=== PATIENT | male | born 1955 | race Caucasian/White ===

== ENCOUNTER 2019-05-10 10:05 | Inpatient (IN) | payer BC ==
[~2019-05-10 10:05] MED LIST: Heparin 1,000 UNITS/ML VIAL ONE
--- NOTE | 2019-05-10 10:46 | CT ---
Head CT without contrast 05/10/2019: HISTORY: Syncope, weakness TECHNIQUE: Axial CT imaging at 5 mm intervals from vertex through skull base without contrast FINDINGS: The imaged paranasal sinuses and mastoid air cells demonstrate no acute findings. The patie nt appears status post paranasal sinus surgery. No acute osseous abnormality. No intracranial hemorrhage, midline shift, mass effect, or ventricular enlargement. IMPRESSION: No acute findings.
[2019-05-10] MEDS ORDERED: Acetaminophen 500 MG TAB ONE (10:47)
[2019-05-10 10:50] LABS: Mean Corpuscular HGB CONC 34.9 g/dL (32.0-36.0); Mean Corpuscular Hemoglobin 30.4 pg (27.0-31.0); Mean Corpuscular Volume 87.1 fL (78.0-98.0); Mean Platelet Volume 9.9 fL (7.4-10.4); Platelet Count 173 thou/uL (130-400); RBC Distribution Width 10.8 % (11.5-14.5); Red Blood Cell (RBC) Count 4.27 mill/uL (4.70-6.10); White Blood Cell (WBC) Count 21.7 thou/uL (4.8-10.8)
--- NOTE | 2019-05-10 10:57 | RAD ---
PORTABLE CHEST ONE VIEW: HISTORY: Urinary and stool incontinence. Fever. Weakness. FINDINGS: Heart size is within normal limits. No confluent pneumonia, overt edema, pleural effusion, or other a cute process. IMPRESSION: No significant acute intrathoracic disease. POS: OFF
[2019-05-10] MEDS ORDERED: Piperacillin/Tazobactam 4.5 GM VIAL ONE (11:02)
[2019-05-10 11:08] LABS: Band 15 % (5-11); Lymphocytes 5 % (21-51); MDiff Complete? YES; Monocytes 1 % (0-10); Neutrophil 76 % (42-75); RBC Morphology Normal; Reactive Lymphocytes 3 % (0-10)
[2019-05-10 11:13] LABS: ALT (SGPT) 9 U/L (8-55); AST (SGOT) 12 U/L (5-34); Albumin 4.1 g/dL (3.4-4.8); Alkaline Phosphatase 76 U/L (40-150); Anion Gap 14 mmol/L (10-20); BUN (Urea Nitrogen) 23 mg/dL (8.4-25.7); Bilirubin, Total 2.4 mg/dL (0.2-1.2); CK (CPK) 157 U/L (30-200); Calc. Creatinine Clearance 0 mL/min (70-130); Carbon Dioxide 25 mmol/L (23-31); Chloride 93 mmol/L (98-107); Estimated GFR-MDRD 39; Globulin 2.9 g/dL (2.4-3.5); Glucose 415 mg/dL (80-115); Potassium 4.1 mmol/L (3.5-5.1); Sodium 128 mmol/L (136-145)
[2019-05-10 12:44] LABS: Bilirubin Small (Negative); Blood, Urine Trace (Negative); Glucose, Urine (Dipstick) 500 mg/dL (Negative); Leukocyte Negative (Negative); Nitrite Negative (Negative); Protein, Urine (Dipstick) 30 mg/dL (Neg-Trace); Urobilinogen 0.2 mg/dL (Less than 2)
[2019-05-10 12:45] LABS: Clarity Clear (Clear)
[2019-05-10 12:52] LABS: Bacteria/HPF None Seen HPF (None Seen); RBC/HPF 0-3 HPF (0-3); Squamous Epithelial 0-3 HPF (0-3)
[2019-05-10 14:39] LABS: Lactic Acid 1.3 mmol/L (0.5-2.2)
[2019-05-10] MEDS ORDERED: Sodium Chloride 0.9% 1,000 ML IV SCH (15:45)
[2019-05-10] MEDS ORDERED: Dextrose 5% in Water 1,000 ML IV PRN (16:19)
[2019-05-10] MEDS ORDERED: HYDROcodone/Acetaminophen 5/325 mg Tablet PO PRN (16:19)
[2019-05-10] MEDS ORDERED: Dextrose 50% Abboject 50 ML SYRINGE SLOW IVP PRN (16:19)
[2019-05-10] MEDS ORDERED: hydrALAZINE 20 MG/ML VIAL SLOW IVP PRN (16:19)
[2019-05-10] MEDS ORDERED: Pharmacy to Dose 1 EACH VANCOMYCIN IVPB PRN (16:58)
--- NOTE | 2019-05-10 17:06 | ULT ---
EXAM: Carotid ultrasound HISTORY: Syncope COMPARISON: None TECHNIQUE: Multiplanar grayscale and color Doppler images were obtained in a carotid ultrasound. Spec tral analysis of the Doppler waveforms were performed. FINDINGS: No significant plaque is visualized in either internal carotid artery. No significant plaque is seen in either common carotid artery. The Doppler waveforms are normal in the visualized vessels. Peak systolic velocity in the right internal carotid artery 142 cm/s. Peak systolic velocity in the right common carotid artery 133 cm/s. The right ICA/CCA ratio is 1.1. Peak systolic velocity in the left internal carotid artery 98 cm/s. Peak systolic velocity in the left common carotid artery 141 cm/s. The left ICA/CCA ratio is 0.7. Both vertebral arteries demonstrate antegrade flow without focal stenosis IMPRESSION: Moderate stenosis of 50-69% per velocity criteria in the right internal carotid artery.
[2019-05-10] MEDS: Piperacillin/Tazobactam 3.375 GM in Sodium Chloride 0.9% 100 ML IVPB SCH ×2 (17:12→23:27)
[2019-05-10] MEDS: Sodium Chloride 0.9% 1,000 ML IV SCH (17:12)
[2019-05-10] MEDS: HumaLOG 300 UNITS/3 ML VIAL SC PRN (17:14)
[2019-05-10 17:31] LABS: Lactic Acid 1.7 mmol/L (0.5-2.2)
[2019-05-10] MEDS: Vancomycin HCl 1.5 GM in Sodium Chloride 0.9% 250 ML 300 ML IVPB SCH (19:13)
[2019-05-10] MEDS: Acetaminophen 325 MG TAB PO PRN (19:58)
--- NOTE | 2019-05-10 20:31 | HP ---
PRIMARY CARE PHYSICIAN: The patient does not have a primary care physician. CHIEF COMPLAINT: "I saw flashing light in my left eye, and then I passed out." HISTORY OF PRESENT ILLNESS: Mr. Vigil is a pleasant 64-year-old gentleman, who has a history of diabetes mellitus. He was in his usual state of health until yesterday. He says he was returning from work when he started noticing a flash of light in his left eye. He said it happened several times during the day, but then in the evening, it happened and then he says he "passed out". He says he was on the ground for a while and was very disoriented. He says that he was not able to get up for at least 30 minutes or so because he was extremely weak in his legs. Following after he was able to get up, he did have several episodes of diarrhea. He says he even had some at night in his sleep that he was not aware of. He describes it as a very watery diarrhea. There was no blood. He denies having any abdominal pain, and no vomiting. He also says with regard to the passing out, prior to that, he had not been feeling bad per se. He did not have any headaches. He had a little mild dizziness, but there was no chest pain. No shortness of breath. No weakness in either extremities, either in his upper or lower extremities. He has some numbness and tingling in his fingers, but he says that this is nothing new. He also notes some neuropathy in his legs, but this was not new as well. As a result of this syncopal episode, he came to the emergency room for evaluation. In the ER, he was found to have a blood pressure on the lower side with a systolic of 86. He was also found to have an elevated blood glucose in the 400 range as well as an elevated lactic acid and white blood cell count. He was also noted to be febrile and is being admitted for further recommendations. REVIEW OF SYSTEMS: CONSTITUTIONAL: He did not notice fever at home, but once he was in the emergency room, his temperature was 101.2. He denies any night sweats or weight loss. No change in appetite. HEENT: Primarily per the history of present illness with no rhinorrhea. No neck pain. No adenopathy. PULMONARY: There has been no hemoptysis. No cough. No wheezing. CARDIOVASCULAR: He denies any chest pain. No shortness of breath. No mention of PND. No orthopnea. GASTROINTESTINAL: As the history of present illness. GENITOURINARY: He denies any urinary frequency or hematuria. MUSCULOSKELETAL: He admits to neuropathy in his legs, and he also knows that he did have neuropathy in his lower extremities. No joint pains or effusions. NEUROLOGIC: There has been no focal weakness. No seizures. PSYCHIATRIC: No symptoms of anxiety or depression. SKIN AND INTEGUMENT: On the skin, he noticed an ulcer under the plantar aspect of the right foot, and he denies having any type of injury there that he is aware of. PAST MEDICAL HISTORY: Significant for diabetes mellitus, and he says this was diagnosed about 4 years ago. PAST SURGICAL HISTORY: He has had a meniscal tear repaired and a surgery spot on his back. ALLERGIES: NO KNOWN DRUG ALLERGIES. SOCIAL HISTORY: He is . He is a nonsmoker. He says he drinks a very little, and he works as an attendant in a subdivision greeting people. FAMILY HISTORY: Significant for diabetes in his maternal grandfather as well as heart disease. CURRENT MEDICATIONS: He says he is just taking some occasional herbs. PHYSICAL EXAMINATION: GENERAL: He is alert and oriented. He appears to be in no acute distress. He is well developed and well nourished. VITAL SIGNS: Blood pressure was approximately 104/68, originally 86/52; heart rate 110; respiratory rate of 16; temperature was 101.5. HEENT: Pupils are equal, round, and reactive. Extraocular muscles are intact. His sclerae are anicteric. Throat; there is no erythema. No exudates. He does have poor dentition. Ears; the tympanic membranes are pearly jackson. There was some mild clear fluid behind the drum, but there was no redness. No bulging of the drums. NECK: There was no adenopathy. No bruits. LUNGS: Clear to auscultation. There was no wheezing. No rales. No rhonchi. CARDIOVASCULAR: He has normal S1 and S2. I did not appreciate an S3 or S4. He did have a grade 1/6 very faint systolic murmur. ABDOMEN: Obese. It is soft, nontender, and nondistended. Positive for bowel sounds. Liver span was approximately 7 to 8 cm, and there was no evidence of organomegaly. No rebound or guarding. EXTREMITIES: There was no clubbing or cyanosis. No calf tenderness. No joint effusions noted. NEUROLOGIC: Grossly intact with his muscle strength being 5/5 in both his upper and lower extremities. SKIN AND INTEGUMENT: On the right foot, he has a bullous lesion, which had a red, bruised base right at the base of the third metatarsal. He had an ulcerative lesion, that is oblong on the plantar surface of the foot with some yellowish white exudate. He does have palpable dorsalis pedis pulses bilaterally. He does have 1 to 2+ edema, primarily pedal and ankle edema. He had some mycotic nails with some ingrown toenails as well. LABORATORY AND IMAGING DATA: On his chemistry panel, the sodium was 128, potassium 4.1, chloride is 93, CO2 is 25, BUN of 23, creatinine of 1.7, glucose is 415, lactic acid 2.3, total bilirubin is 2.4. His white blood cell count is 21.7, hemoglobin 13, hematocrit is 37.2, platelet count is 173. He had a CT scan of the brain, which was negative for any acute intracranial process, and also had an EKG, in which the heart rate was 99, and it demonstrated a left bundle-branch block. The patient did mention that he was told he had a left bundle-branch block 4 years ago. ASSESSMENT: 1. This is a pleasant 64-year-old gentleman, who presents to the emergency room after having a syncopal episode followed by diarrhea. He was noted to be initially hypotensive, had a fever, an elevated white count, and elevated lactic acid level. It is unclear what caused the syncope, but I suspect it could be related to volume depletion. Despite the diarrhea coming after the syncopal episode, I suspect there was an enough fluid shift that it may have caused him some hypotension. He is also diabetic and could have silent coronary artery disease; and therefore, this will need to be entertained as well, as well as other causes of syncope such as arrhythmia and cerebral vascular disease. 2. Diarrhea. I suspect this is due to gastroenteritis; however, his white blood cell count is quite elevated. We will try to get stool studies to evaluate for other potential causes such as Clostridium difficile, Campylobacter, Escherichia coli, etc. 3. Diabetes. This does not appear to be very well controlled. The patient states that he is using diet only. We will go ahead and have a environmental educator speak with the patient, and for now, we will just place him on a sliding scale. 4. Diabetic foot infection. We will have Wound Care consult, and antibiotic coverage will likely be sufficient for the foot as well. 5. Hyponatremia. I suspect this is due to his elevated serum glucose and likely should correct with correction of his hyperglycemia. 6. He will also be placed on deep venous thrombosis as well as gastrointestinal prophylaxis. Job ID: [id number]
[2019-05-10] MEDS: Famotidine 20 MG TAB PO SCH (20:56)
[2019-05-10] MEDS ORDERED: Vancomycin HCl 1 GM in Premix Bag 1 BAG IVPB SCH (21:00)
[2019-05-10] MEDS ORDERED: Loperamide HCl 2 MG CAP PO PRN (22:14)
[2019-05-11 05:25] LABS: Anion Gap 16 mmol/L (10-20); BUN (Urea Nitrogen) 20 mg/dL (8.4-25.7); Calc. Creatinine Clearance 76 mL/min (70-130); Carbon Dioxide 18 mmol/L (23-31); Chloride 100 mmol/L (98-107); Estimated GFR-MDRD 56; Glucose 238 mg/dL (80-115); Potassium 3.7 mmol/L (3.5-5.1); Sodium 130 mmol/L (136-145)
[2019-05-11] MEDS: Piperacillin/Tazobactam 3.375 GM in Sodium Chloride 0.9% 100 ML IVPB SCH ×3 (05:48→20:01)
[2019-05-11 06:04] LABS: #Lymphocytes 0.8 thou/uL (1.20-3.40); #Monocytes 1.1 thou/uL (0.11-0.59); #Neutrophils 13.5 thou/uL (1.40-6.50); %Basophils 0.1 % (0.0-1.0); %Eosinophils 0.1 % (0.0-10.0); %Lymphocytes 5.3 % (21.0-51.0); %Monocytes 7.1 % (0.0-10.0); %Neutrophils 87.4 % (42.0-75.0); Hemoglobin 11.5 g/dL (14.0-18.0); Mean Corpuscular HGB CONC 35.3 g/dL (32.0-36.0); Mean Corpuscular Hemoglobin 31.4 pg (27.0-31.0); Mean Platelet Volume 9.2 fL (7.4-10.4); Platelet Count 116 thou/uL (130-400); Platelet Morphology Comment Appears Decreased; RBC Distribution Width 10.6 % (11.5-14.5); Red Blood Cell (RBC) Count 3.66 mill/uL (4.70-6.10); White Blood Cell (WBC) Count 15.4 thou/uL (4.8-10.8)
[2019-05-11] MEDS: HumaLOG 300 UNITS/3 ML VIAL SC PRN ×2 (09:44→11:24)
[2019-05-11] MEDS: Acetaminophen 325 MG TAB PO PRN (09:45)
[2019-05-11] MEDS: Famotidine 20 MG TAB PO SCH ×2 (09:45→21:03)
--- NOTE | 2019-05-11 11:27 | CON ---
DATE OF CONSULTATION: HISTORY OF PRESENT ILLNESS: Sukumar Vigil is a 64-year-old male, retired insurance sales, has diabetes, but he has been managing this holistically on diet. Three to four days ago, he stepped on something in the house, noticed some blood in his shoes and socks. He reports to the emergency room 05/10/2019, admitted to the hospitalist service for complaints of syncope. He had ultrasound of carotids, CT scan of the brain and a chest x-ray. It was not until after admission that he was noted to have a severe infection in his right foot. This has progressed overnight. His is present and seen today. States it has markedly changed since two days ago. He has a gangrenous right second toe with ulceration plantar foot beneath the metatarsophalangeal joint of the second toe extending 6 cm to the dorsum of the foot with blistering skin over the distal foot overlying the second and third toes and metatarsals with discoloration and cellulitis to the ankle. He was noted to have a glucose of 346 on admission. Hemoglobin A1c has not been checked. ALLERGIES: NONE. TOBACCO: None. ALCOHOL: Rarely. MEDICATIONS: None prior to this hospitalization. On hospital, he has been on vancomycin and Zosyn, and insulin. PAST SURGICAL HISTORY: Upper back cyst excised, right knee meniscectomy, right inguinal hernia repair as a child. PAST MEDICAL HISTORY: Diabetes mellitus. The patient reports having a cardiac stress test in [place] as an outpatient that was normal in the last year or two. He has never had a colonoscopy. He does not have a primary care physician. The patient has been experiencing diarrhea in addition and is wearing a diaper. He denies incontinence. REVIEW OF SYSTEMS: Ten-point noncontributory. PHYSICAL EXAMINATION: VITAL SIGNS: 6 feet tall, 207 pounds, 28 BMI, 100.4 degrees, 86, 131/67. HEAD, EYES, EARS, NOSE, AND THROAT: Unremarkable. LUNGS: Clear to auscultation. CARDIAC: Regular rate and rhythm. No murmur or gallop. ABDOMEN: Soft and nontender. No masses. EXTREMITIES: Palpable femoral, popliteal, dorsalis pedis, and posterior tibial pulses. Right foot wound and cellulitis infection as described in HPI. LABORATORY DATA: Sodium 130, potassium 3.7, creatinine 1.3, BUN 20. White count 15, down from 21 yesterday. Hemoglobin 11.5, down from 13 yesterday. Stool C. diff yesterday negative. Blood cultures positive x2 streptococcus. Cultures from his foot not obtained. ASSESSMENT/PLAN: 1. Severe diabetic infection, right foot. We would recommend emergent amputation of right second and probable third toe and others as indicated pending operative findings. He understands he will have an open wound with wound VAC care. He has a life and limb threatening infection in his right foot. We would plan to do this urgently today. 2. Noncompliant diabetic. Check hemoglobin A1c, diabetes education, and control per Medical. 3. Diarrhea, viral gastroenteritis. 4. Never has had a colonoscopy at age 64. Job ID: [id number]
[2019-05-11] MEDS: Enoxaparin Sodium 30 MG/0.3 ML SYRINGE SC SCH (12:59)
[2019-05-11] MEDS: Sodium Chloride 0.9% 1,000 ML IV SCH ×2 (13:00→21:02)
--- NOTE | 2019-05-11 14:15 | PDOC.HOSPP ---
- Subjective Encounter Date: 05/11/19 Encounter Time: 10:00 Subjective: Mr. Vigil was seen today in follow-up of syncope, and sepsis. He does not have any new complaints. It was noted that he the area on his foot is much worse. Diarrhea has resolved. - Objective Vital Signs & Weight: Vital Signs (12 hours) Temp Pulse Resp BP Pulse Ox 05/11/19 07:45 100.4 F H 86 18 131/67 98 05/11/19 04:00 99.7 F H 89 18 122/70 95 Weight Weight 207 lb 4 oz I&O: 05/10/19 05/11/19 05/12/19 06:59 06:59 06:59 Intake Total 2250 Output Total 800 Balance 1450 Result Diagrams: 05/11/19 04:54 05/11/19 04:54 Additional Labs: Accuchecks 05/11/19 05/11/19 05/10/19 10:36 06:06 20:38 POC Glucose 321 H 243 H 218 H 05/10/19 16:53 POC Glucose 346 H Hospitalist ROS - Medication Medications: Active Medications Generic Name Dose Route Start Last Admin Trade Name Freq PRN Reason Stop Dose Admin Acetaminophen 650 mg 05/10/19 16:19 05/11/19 09:45 Tylenol PO 650 mg Q4H PRN Administration Headache/Fever/Mild Pain (1-3) Enoxaparin Sodium 30 mg 05/11/19 09:00 05/11/19 12:59 Lovenox SC Not Given 0900 WAYNE Famotidine 20 mg 05/10/19 21:00 05/11/19 09:45 Pepcid PO 20 mg BID WAYNE Administration Piperacillin Sod/Tazobactam 100 mls @ 200 mls/hr 05/10/19 18:00 05/11/19 11: 29 Sod 3.375 gm/ Sodium Chloride IVPB 100 mls Q6HR WAYNE Administration Sodium Chloride 1,000 mls @ 75 mls/hr 05/10/19 16:19 05/10/19 17:12 Normal Saline 0.9% IV 1,000 mls .[id number] WAYNE Administration Vancomycin HCl 1.5 gm/ Sodium 300 mls @ 200 mls/hr 05/10/19 18:00 05/10/19 19 :13 Chloride IVPB 300 mls 1800 WAYNE Administration Insulin Human Lispro 0 units 05/10/19 16:19 05/11/19 11:24 Humalog SC 8 unit .MODERATE SLIDING SC PRN Administration Moderate Correctional Scale Loperamide HCl 4 mg 05/10/19 22:14 05/10/19 23:47 Imodium PO 05/13/19 22:15 4 mg ONE PRN Administration Diarrhea/Loose Stools Sodium Chloride 10 ml 05/10/19 21:00 05/11/19 10:21 Flush - Normal Saline IVF Not Given Q12HR WAYNE - Exam Eye: PERRL, anicteric sclera ENT: normocephalic atraumatic, no oropharyngeal lesions (other than poor dentition) Heart: RRR, no murmur, no gallops, no rubs, normal peripheral pulses Respiratory: CTAB, no wheezes, no rales, no ronchi, normal chest expansion, no tachypnea, normal percussion Gastrointestinal: soft, non-tender, non-distended, normal bowel sounds, no palpable masses, no hepatomegaly Extremities: 1+ LE edema (+ edema and redness on the dorsum of the right foot, there is now a large bollous lesion there, with sounding erthema, and induration now extending into the ankle) Hosp A/P (1) Syncope Code(s): R55 - SYNCOPE AND COLLAPSE Status: Acute (2) Diabetes mellitus type 2 in nonobese Code(s): E11.9 - TYPE 2 DIABETES MELLITUS WITHOUT COMPLICATIONS Status: Chronic (3) Diabetic peripheral neuropathy Code(s): E11.42 - TYPE 2 DIABETES MELLITUS WITH DIABETIC POLYNEUROPATHY Status : Acute (4) Sepsis Code(s): A41.9 - SEPSIS, UNSPECIFIED ORGANISM Status: Acute (5) Diabetic foot infection Code(s): E11.628 - TYPE 2 DIABETES MELLITUS WITH OTHER SKIN COMPLICATIONS; L08.9 - LOCAL INFECTION OF THE SKIN AND SUBCUTANEOUS TISSUE, UNSP Status: Acute - Plan * Syncope- I suspect this was due to fluid shift with sepsis-however Echo is pending and carotid doppler demonstrated moderate stenosis * Diabetic foot infection- this is progressing rapidly. The patient now remembers that he may have stepped on a screw which went through the bottom of his croc shoe. I am concerned he may have some element of fasciitis- I have called Dr. Sage who has already assessed the patient. There is a strong possibility the foot may need amputation * Will also consult ID- blood cultures are growing Strep * Continue IV Vancomycin and Zosyn * Diarrhea- resolved- and stool studies are negative so far
[2019-05-11] MEDS ORDERED: Sodium Chloride 0.9% 10 ML ONE (15:43)
[2019-05-11] MEDS ORDERED: Propofol 500 MG/50 ML VIAL ONE (17:26)
[2019-05-11] MEDS ORDERED: Fentanyl 100 MCG/2 ML VIAL ONE ×2 (17:26)
[2019-05-11] MEDS ORDERED: Midazolam HCl 2 mg/2 ml Vial ONE (17:26)
[2019-05-11] MEDS ORDERED: Piperacillin/Tazobactam 3.375 GM VIAL ONE (17:43)
[2019-05-11] MEDS ORDERED: Acetaminophen 500 MG TAB PO PRN (18:10)
[2019-05-11] MEDS ORDERED: traMADol HCl 50 MG TAB PO PRN (18:10)
[2019-05-11] MEDS ORDERED: Promethazine HCl 25 MG/ML VIAL IM PRN (18:27)
[2019-05-11] MEDS ORDERED: Promethazine HCl 25 MG/ML VIAL SLOW IVP PRN (18:27)
[2019-05-11] MEDS ORDERED: Morphine Sulfate 2 MG/ML SYRINGE SLOW IVP PRN (18:27)
[2019-05-11] MEDS: Vancomycin HCl 1.5 GM in Sodium Chloride 0.9% 250 ML 300 ML IVPB SCH (18:37)
[2019-05-11] MEDS ORDERED: PROPOFOL 200 MG/20 ML VIAL ONE (18:51)
[2019-05-11] MEDS ORDERED: PHENYLEPHRINE-NS 100 MCG/ML 10 ML SYRINGE ONE (18:51)
[2019-05-11] MEDS ORDERED: Ondansetron PF 4 MG/2 ML Vial ONE (18:51)
[2019-05-11] MEDS: metroNIDAZOLE 500 MG in Premix Bag 1 BAG IVPB SCH (21:02)
[2019-05-11] MEDS: Cefepime 1 GM in Sodium Chloride 0.9% 100 ML IVPB SCH (21:02)
[2019-05-11] MEDS ORDERED: Piperacillin/Tazobactam 4.5 GM in Sodium Chloride 0.9% 100 ML IVPB SCH (23:59)
--- NOTE | 2019-05-12 00:17 | OP ---
DATE OF PROCEDURE: 05/11/2019 PREOPERATIVE DIAGNOSES: Bacteremia, sepsis, diabetic septic foot right after a puncture wound 4 days ago, noncompliant, diabetes, palpable pulses. POSTOPERATIVE DIAGNOSES: Bacteremia, sepsis, diabetic septic foot right after a puncture wound 4 days ago, noncompliant, diabetes, palpable pulses. PROCEDURE: Amputation of toes and metatarsals 2, 3, 4, and 5, right foot with debridement, sharp, resectional, 10 blade skin, soft tissue, muscle, fascia, connective tissue, wound left open for healing by secondary intention. Wound Care Team placed a wound VAC. ANESTHESIA: TIVA. WOUND CULTURE: Submitted to microbiology. DESCRIPTION OF PROCEDURE: The patient was taken to the operating room where under sedation, his right lower extremity was prepared with Betadine and draped in routine fashion. The patient had severe necrotizing infection with the plantar wound extending to the dorsum of his foot around the second and third toes and metatarsals. There was blistering of the dorsum of the foot and ecchymosis of the skin with necrosis and gangrene. An incision was made for amputation of the second and third toes and this extended to the third and fourth. Once underlying infection was appreciated, it involved the tendons and soft tissues of these toes. Metatarsals transected with a bone cutter, resected proximally with rongeurs, connective tissue, infected tissue, necrotic skin excised, resected back to healthy levels. Wound irrigated. Hemostasis obtained with cautery. There was good bleeding. Connective tissue debrided. Wound Care Team arrived to place a wound VAC. The patient tolerated the procedure well. Job ID: [id number]
--- NOTE | 2019-05-12 01:50 | CON ---
DATE OF CONSULTATION: 05/11/2019 REASON FOR CONSULTATION: Bacteremia. HISTORY OF PRESENT ILLNESS: A 64-year-old with a history of type 2 diabetes and neuropathy, who had a syncopal event and developed diarrhea and eventually ended up being brought to the emergency room and he was found to have a temperature of 101.2. There was an ulcer in the plantar aspect of the right foot, and he told me that he had stepped on a screw, which perforated his shoe on the right side and inadvertently he kept using the same shoe and was not aware of the fact that he did have screw still within the shoe, so therefore he kept injuring his right foot over and over again. On arrival, he was hypotensive, tachycardic, so obviously with sepsis. The white cell count was elevated. Bilirubin was elevated as well, probably from the bacteremia. His glucose was 415. White cell count 21.7. Due to the foot abnormalities, Surgery was consulted and the patient was taken to the OR and had amputation, I think of the second through the fifth toes, right foot. I do not see any imaging studies here done, but in the surgeon's exam, there are gangrenous changes in the second toe with ulceration beneath the MPJ, second toe, extending 6 cm to the dorsum of the foot. We do not have a surgical report yet to review. Currently, he is feeling better, though he has this tremor, which is chronic, looks like essential tremor. He denies headaches. No visual symptoms, sore throat, odynophagia, or dysphagia. No dyspnea or chest pain. No abdominal pain or diarrhea. Voiding without difficulty. He has no pain in the feet from neuropathy. PAST MEDICAL HISTORY: Includes type 2 diabetes, neuropathy, and recent perforating injury to the right foot from a screw penetrating through his right shoe. PAST SURGICAL HISTORY: Meniscal tear. ALLERGIES: NONE. SOCIAL HISTORY: , nonsmoker. Works in a subdivision as an attendant. FAMILY HISTORY: Type 2 diabetes. CURRENT MEDICATIONS: 1. IV fluids. 2. Lovenox. 3. Pepcid. 4. Fentanyl. 5. Insulin. 6. Imodium. 7. Zosyn. 8. Vancomycin. PHYSICAL EXAMINATION: VITAL SIGNS: T-max 102.8, currently 100.7; blood pressure 108/56; pulse 90; respirations 18; and O2 saturation 98%. SKIN: With the blanched out swollen second toe blister with bluish discoloration at the base of the second MPJ's dorsal aspect skin site. At the bottom, there is an ulcer, where there is penetration by the screw and one can see the diminished perfusion of the second toe and the other toes appear well perfused. There is a second picture the following day, where there are more overt blistering changes with more ischemic changes in the second toe. LYMPH: No lymphadenopathy. HEENT: Ocular movements conjugate. Oral cavity normal. NECK: Supple. LUNGS: Symmetric. Clear breath sounds. HEART: S1 and S2, regular rate without murmurs. ABDOMEN: Soft, not distended or tender. No ascites. : No bladder distention. MUSCULOSKELETAL: No joint inflammatory activity outside the involved area. Pulses are 2+ in dorsalis pedis. Cap refill is normal. He has this essential tremor, which is chronic. His cognitive function appears to be intact. LABORATORY DATA: White cell count 21,000, now 15.4; hemoglobin 13; and platelets 173 and 116. Chemistry with a creatinine of 1.3. Urinalysis with 4 to 6 wbc's. Microbiology with group B strep from 2 sets of blood cultures. ASSESSMENT: Perforating injury to the right foot in the setting of diabetes mellitus, type 2; neuropathy with aggressive necrotizing infection secondary to group B Streptococcus. Anaerobes may have a role here too as well as Pseudomonas aeruginosa. We will switch the patient to cefepime plus Flagyl. We will discontinue remainder of antimicrobials until final culture results are available. We will wait for the path report and then hopefully transition to oral antimicrobial therapy, probably a combination of Keflex and Flagyl for discharge planning. Job ID: [id number]
[2019-05-12 04:52] LABS: Hemoglobin A1c 10.7 % (4.0-6.0)
[2019-05-12] MEDS: metroNIDAZOLE 500 MG in Premix Bag 1 BAG IVPB SCH ×3 (05:22→21:26)
[2019-05-12] MEDS: Cefepime 1 GM in Sodium Chloride 0.9% 100 ML IVPB SCH ×3 (05:22→21:25)
[2019-05-12] MEDS: Famotidine 20 MG TAB PO SCH ×2 (08:51→21:25)
[2019-05-12] MEDS: Sodium Chloride 0.9% 1,000 ML IV SCH ×2 (08:51→22:19)
[2019-05-12] MEDS: Enoxaparin Sodium 30 MG/0.3 ML SYRINGE SC SCH (08:52)
[2019-05-12 11:42] LABS: #Eosinphils 0.1 thou/uL (0.0-0.7); #Lymphocytes 0.8 thou/uL (1.20-3.40); #Monocytes 0.7 thou/uL (0.11-0.59); #Neutrophils 9.2 thou/uL (1.40-6.50); %Basophils 0.1 % (0.0-1.0); %Eosinophils 0.7 % (0.0-10.0); %Lymphocytes 7.2 % (21.0-51.0); %Monocytes 6.2 % (0.0-10.0); %Neutrophils 85.8 % (42.0-75.0); Hemoglobin 10.2 g/dL (14.0-18.0); Mean Corpuscular HGB CONC 35.1 g/dL (32.0-36.0); Mean Corpuscular Hemoglobin 30.8 pg (27.0-31.0); Mean Corpuscular Volume 87.6 fL (78.0-98.0); Mean Platelet Volume 10.3 fL (7.4-10.4); Platelet Count 150 thou/uL (130-400); RBC Distribution Width 10.6 % (11.5-14.5); Red Blood Cell (RBC) Count 3.33 mill/uL (4.70-6.10); White Blood Cell (WBC) Count 10.7 thou/uL (4.8-10.8)
[2019-05-12 11:55] LABS: Anion Gap 10 mmol/L (10-20); BUN (Urea Nitrogen) 16 mg/dL (8.4-25.7); Calc. Creatinine Clearance 83 mL/min (70-130); Calcium 8.2 mg/dL (7.8-10.44); Carbon Dioxide 23 mmol/L (23-31); Chloride 102 mmol/L (98-107); Estimated GFR-MDRD 58; Glucose 334 mg/dL (80-115); Potassium 3.5 mmol/L (3.5-5.1); Sodium 131 mmol/L (136-145)
[2019-05-12] MEDS: HumaLOG 300 UNITS/3 ML VIAL SC PRN ×2 (13:35→17:45)
--- NOTE | 2019-05-12 13:56 | PRG ---
DATE OF SERVICE: 05/12/2019 SUBJECTIVE: Sukumar Vigil is doing much better today. He feels much better since having his diabetic wet gangrene foot surgically attended to. He is mentally clear. His notices the difference. OBJECTIVE: VITAL SIGNS: Temperature 97.8 degrees, pulse 84, blood pressure 123/63. LABORATORY DATA: White count 10.7, down from 21; hemoglobin 10.2. Basic metabolic profile normal. Glucose is 346 to 334. Hemoglobin A1c 10.7. Wound VAC in foot, unchanged. ASSESSMENT AND PLAN: Bacteremia; diabetic foot infection, status post amputation of toes 2, 3, 4, and 5 and metatarsals with wound VAC applied. Long posterior flap left to facilitate wound healing. Physical therapy has been requested to ambulate him. I have ordered an orthotic shoe, but I do not see that at the bedside and we will reorder that. He should wear this when out of bed. We will view his wound tomorrow. Job ID: [id number]
[2019-05-12] MEDS ORDERED: TETANUS AND DIPHTHERIA TOX/PF 0.5 ML DISP.SYRIN IM ONE (14:00)
--- NOTE | 2019-05-12 14:45 | PDOC.HOSPP ---
- Subjective Encounter Date: 05/12/19 Encounter Time: 11:30 Subjective: Mr. Vigil was seen today in follow-up of diabetic foot infection with sepsis. He says he feels better today. He does not have any new complaints. - Objective Vital Signs & Weight: Vital Signs (12 hours) Temp Pulse Resp BP BP BP Pulse Ox 05/12/19 13:29 134/64 129/67 05/12/19 11:45 97.8 F 84 18 123/63 95 05/12/19 08:15 95 05/12/19 08:13 98.7 F 84 18 126/65 96 05/12/19 04:00 100.1 F H 87 18 132/68 95 Weight Admit Weight 207 lb 4 oz Weight 217 lb 3.2 oz I&O: 05/11/19 05/12/19 05/13/19 06:59 06:59 06:59 Intake Total 2250 2847 Output Total 800 1900 Balance 1450 947 Result Diagrams: 05/12/19 11:12 05/12/19 11:12 Additional Labs: Accuchecks 05/12/19 05/12/19 05/11/19 10:35 05:21 20:15 POC Glucose 346 H 272 H 224 H 05/11/19 16:05 POC Glucose 177 H Hospitalist ROS - Medication Medications: Active Medications Generic Name Dose Route Start Last Admin Trade Name Freq PRN Reason Stop Dose Admin Enoxaparin Sodium 30 mg 05/11/19 09:00 05/12/19 08:52 Lovenox SC 30 mg 0900 WAYNE Administration Famotidine 20 mg 05/10/19 21:00 05/12/19 08:51 Pepcid PO 20 mg BID WAYNE Administration Sodium Chloride 1,000 mls @ 75 mls/hr 05/10/19 16:19 05/12/19 08:51 Normal Saline 0.9% IV 1,000 mls .[id number] WAYNE Administration Cefepime HCl 1 gm/ Sodium 100 mls @ 200 mls/hr 05/11/19 21:00 05/12/19 12:34 Chloride IVPB 100 mls 0500,1300,2100 WAYNE Administration Metronidazole 500 mg/ Device 100 mls @ 100 mls/hr 05/11/19 22:00 05/12/19 13: 38 IVPB 100 mls Q8HR WAYNE Administration Insulin Human Lispro 0 units 05/10/19 16:19 05/12/19 13:35 Humalog SC 8 unit .MODERATE SLIDING SC PRN Administration Moderate Correctional Scale Loperamide HCl 4 mg 05/10/19 22:14 05/10/19 23:47 Imodium PO 05/13/19 22:15 4 mg ONE PRN Administration Diarrhea/Loose Stools Sodium Chloride 10 ml 05/10/19 21:00 05/12/19 08:52 Flush - Normal Saline IVF 10 ml Q12HR WAYNE Administration - Exam Eye: PERRL, anicteric sclera Heart: RRR, no murmur, no gallops, no rubs, normal peripheral pulses Respiratory: CTAB, no wheezes, no rales, no ronchi, normal chest expansion, no tachypnea, normal percussion Gastrointestinal: soft, non-tender, non-distended, normal bowel sounds, no palpable masses, no hepatomegaly, no splenomegaly Extremities: no cyanosis, 1+ LE edema (wound on right foot is dressed, wound photos reviewed.- wound vac is in place) Skin: normal turgor Musculoskeletal: normal tone, normal strength, no muscle wasting Hosp A/P (1) Diabetic foot infection Code(s): E11.628 - TYPE 2 DIABETES MELLITUS WITH OTHER SKIN COMPLICATIONS; L08.9 - LOCAL INFECTION OF THE SKIN AND SUBCUTANEOUS TISSUE, UNSP Status: Acute (2) Sepsis Code(s): A41.9 - SEPSIS, UNSPECIFIED ORGANISM Status: Acute (3) Syncope Code(s): R55 - SYNCOPE AND COLLAPSE Status: Acute (4) Diabetes mellitus type 2 in nonobese Code(s): E11.9 - TYPE 2 DIABETES MELLITUS WITHOUT COMPLICATIONS Status: Chronic (5) Diabetic peripheral neuropathy Code(s): E11.42 - TYPE 2 DIABETES MELLITUS WITH DIABETIC POLYNEUROPATHY Status : Acute - Plan * Diabetic foot infection- he is s/p amputation of the 2nd through 5th toes, at the base of the tarsal. The 1st toe has been spared. A wound vac has been placed. will await cultre results. ID input appreciated, and antibiotics have been adjusted. * Strep Bacteremia-this is covered with the current antibiotics * Will give a tetanus shot due to the puncture nature of the wound * Continue IV Cefepime and Flagyl * DM- will add Metformin, and titrate- continue SSI
[2019-05-12] MEDS: metFORMIN 500 MG TAB PO SCH (17:45)
[2019-05-13] MEDS: metroNIDAZOLE 500 MG in Premix Bag 1 BAG IVPB SCH ×3 (04:55→21:54)
[2019-05-13] MEDS: Cefepime 1 GM in Sodium Chloride 0.9% 100 ML IVPB SCH ×3 (04:55→21:55)
[2019-05-13 05:37] LABS: #Eosinphils 0.2 thou/uL (0.0-0.7); #Lymphocytes 0.8 thou/uL (1.20-3.40); #Monocytes 0.6 thou/uL (0.11-0.59); %Basophils 0.3 % (0.0-1.0); %Eosinophils 2.2 % (0.0-10.0); %Monocytes 8.2 % (0.0-10.0); %Neutrophils 79.3 % (42.0-75.0); Mean Corpuscular HGB CONC 35.2 g/dL (32.0-36.0); Mean Corpuscular Hemoglobin 31.4 pg (27.0-31.0); Mean Corpuscular Volume 89.4 fL (78.0-98.0); Mean Platelet Volume 9.7 fL (7.4-10.4); Platelet Count 167 thou/uL (130-400); RBC Distribution Width 10.8 % (11.5-14.5); Red Blood Cell (RBC) Count 3.19 mill/uL (4.70-6.10); White Blood Cell (WBC) Count 7.5 thou/uL (4.8-10.8)
[2019-05-13 06:00] LABS: Anion Gap 13 mmol/L (10-20); BUN (Urea Nitrogen) 14 mg/dL (8.4-25.7); Calc. Creatinine Clearance 93 mL/min (70-130); Calcium 8.2 mg/dL (7.8-10.44); Carbon Dioxide 22 mmol/L (23-31); Chloride 105 mmol/L (98-107); Estimated GFR-MDRD 66; Glucose 195 mg/dL (80-115); Potassium 3.5 mmol/L (3.5-5.1); Sodium 136 mmol/L (136-145)
[2019-05-13] MEDS: metFORMIN 500 MG TAB PO SCH ×2 (08:49→17:04)
[2019-05-13] MEDS: Enoxaparin Sodium 30 MG/0.3 ML SYRINGE SC SCH (08:49)
[2019-05-13] MEDS: Famotidine 20 MG TAB PO SCH ×2 (08:49→21:54)
--- NOTE | 2019-05-13 10:03 | PQF ---
DATE: 05-13-19 ATTN: DR. NATALIE HOLLOWAY Please exercise your independent, professional judgment in responding to the clarification form. Clinical indicators are provided on the bottom of this form for your review Please check appropriate box(s): [ X ] Acute Renal Failure (ARF) / Acute Kidney Injury (MATY) [ ] Insignificant Lab Values [ ] Other diagnosis [ ] Unable to determine In addition, please specify: Present on Admission (POA): [ X] Yes [ ] No [ ] Unable to determine National Kidney Foundation Guidelines for CKD Staging Stage I Kidney damage with normal or increased GFR GFR > 90 Stage II Kidney damage with mildly decreased GFR GFR 60-89 Stage III Kidney damage with moderately decreased GFR GFR 30-59 Stage IV Kidney damage with severely decreased GFR GFR 16 -29 Stage V Kidney failure GFR<15 ESRD End Stage Renal Disease On dialysis Acute Renal Failure/Acute Kidney Failure defined as: Increases in SCr by (>) 0.3 mg/dl within 48 hours OR- Increases in SCr by (>) 1.5 times baseline, known or presumed to have occurred within the prior 7 days OR- Urine volume < 0.5 ml/kg/hour for 6 hours (KDIGO supplement 2012 for RIFLE/SHAHID criteria) For continuity of documentation, please document condition throughout progress notes and discharge summary. Thank You. CLINICAL INDICATORS - SIGNS / SYMPTOMS / LABS: GFR: 05-10-19: 39 05-11-19: 56 05-12-19: 58 05-13-19: 66 CREATININE: 05-10-19: 1.76 05-11-19: 1.30 05-13-19: 1.12 BUN: 05-10-19: 23 05-11-19: 20 05-13-19: 14 ER DX: 05-10-19: SEPSIS, DIARRHEA, FEVER, HYPERGLYCEMIA, LEUKOCYTOSIS, SYNCOPE RISK FACTORS: H&P 05-10-19: DIARRHEA, DM 2, DOES NOT APPEAR TO BE VERY WELL CONTROLLED , IT IS UNCLEAR WHAT CAUSED THE SYNCOPE, BUT I SUSPECT IT COULD BE RELATED TO VOLUME DEPLETION. TREATMENTS: ER NOTES: 05-10-19: NS IVF (This form is maintained as a part of the permanent medical record) 2014 [email or web address], [email or web address]. All Rights Reserved CELI [email or web address] Office: [phone] [facility]AKES HEALTH SYSTEMGerardo
[2019-05-13] MEDS: HumaLOG 300 UNITS/3 ML VIAL SC PRN ×2 (12:23→22:41)
[2019-05-13] MEDS: Sodium Chloride 0.9% 1,000 ML IV SCH (13:31)
--- NOTE | 2019-05-13 17:48 | PDOC.HOSPP ---
- Subjective Encounter Date: 05/13/19 Encounter Time: 11:15 Subjective: Mr. Vigil was seen today in follow-up of diabetic foot infection. He notes a sudden sharp pain in his foot radiating up his leg. He says the medication they gave him for pain helped. - Objective Vital Signs & Weight: Vital Signs (12 hours) Temp Pulse Pulse Pulse Resp BP BP 05/13/19 12:10 97.8 F 72 18 05/13/19 11:29 78 72 141/77 H 137/68 05/13/19 07:15 97.6 F 70 16 BP Pulse Ox Pulse Ox Pulse Ox 05/13/19 12:10 137/68 94 L 05/13/19 11:29 98 97 05/13/19 07:15 137/72 95 Weight Admit Weight 207 lb 4.8 oz Weight 217 lb 3.2 oz I&O: 05/12/19 05/13/19 05/14/19 06:59 06:59 06:59 Intake Total 2847 3215 Output Total 1900 1400 Balance 947 1815 Result Diagrams: 05/13/19 05:04 05/13/19 05:04 Additional Labs: Accuchecks 05/13/19 05/12/19 11:12 20:26 POC Glucose 223 H 192 H Hospitalist ROS - Medication Medications: Active Medications Generic Name Dose Route Start Last Admin Trade Name Freq PRN Reason Stop Dose Admin Hydrocodone Bitart/Acetaminophen 1 tab 05/10/19 16:19 05/13/19 03:22 [place] 5/325 PO 1 tab Q4H PRN Administration Moderate Pain (4-6) Enoxaparin Sodium 30 mg 05/11/19 09:00 05/13/19 08:49 Lovenox SC 30 mg 0900 WAYNE Administration Famotidine 20 mg 05/10/19 21:00 05/13/19 08:49 Pepcid PO 20 mg BID WAYNE Administration Sodium Chloride 1,000 mls @ 75 mls/hr 05/10/19 16:19 05/13/19 13:31 Normal Saline 0.9% IV 1,000 mls .[id number] WAYNE Administration Cefepime HCl 1 gm/ Sodium 100 mls @ 200 mls/hr 05/11/19 21:00 05/13/19 13:29 Chloride IVPB 100 mls 0500,1300,2100 WAYNE Administration Metronidazole 500 mg/ Device 100 mls @ 100 mls/hr 05/11/19 22:00 05/13/19 13: 30 IVPB 100 mls Q8HR WAYNE Administration Insulin Human Lispro 0 units 05/10/19 16:19 05/13/19 12:23 Humalog SC 4 unit .MODERATE SLIDING SC PRN Administration Moderate Correctional Scale Loperamide HCl 4 mg 05/10/19 22:14 05/10/19 23:47 Imodium PO 05/13/19 22:15 4 mg ONE PRN Administration Diarrhea/Loose Stools Metformin HCl 500 mg 05/12/19 17:00 05/13/19 17:04 Glucophage PO 500 mg BID-WM WAYNE Administration Sodium Chloride 10 ml 05/10/19 21:00 05/13/19 08:49 Flush - Normal Saline IVF 10 ml Q12HR WAYNE Administration - Exam Eye: PERRL Heart: RRR, no murmur, no gallops, no rubs, normal peripheral pulses Respiratory: CTAB, no wheezes, no rales, no ronchi, normal chest expansion, no tachypnea, normal percussion Gastrointestinal: soft, non-tender, non-distended, normal bowel sounds, no palpable masses, no hepatomegaly, no splenomegaly Extremities: no cyanosis, 1+ LE edema (+ swelling of the right foot, wound vac is in place, and mild erythema,) Hosp A/P (1) Diabetic foot infection Code(s): E11.628 - TYPE 2 DIABETES MELLITUS WITH OTHER SKIN COMPLICATIONS; L08.9 - LOCAL INFECTION OF THE SKIN AND SUBCUTANEOUS TISSUE, UNSP Status: Acute (2) Sepsis Code(s): A41.9 - SEPSIS, UNSPECIFIED ORGANISM Status: Acute (3) Syncope Code(s): R55 - SYNCOPE AND COLLAPSE Status: Acute (4) Diabetes mellitus type 2 in nonobese Code(s): E11.9 - TYPE 2 DIABETES MELLITUS WITHOUT COMPLICATIONS Status: Chronic (5) Diabetic peripheral neuropathy Code(s): E11.42 - TYPE 2 DIABETES MELLITUS WITH DIABETIC POLYNEUROPATHY Status : Acute - Plan * Diabetic foot infection- continue local wound care, and Cefepime and Flagyl IV * Will add a low dose gabapentin in the evening for phantom pain * Strep Bacteremia-this is covered with the current antibiotics * DM- blood glucose is a bit better- continue Metformin and SSI
[2019-05-13] MEDS ORDERED: Loperamide HCl 2 MG CAP PO PRN (19:38)
--- NOTE | 2019-05-13 21:37 | PRG ---
DATE OF SERVICE: 05/13/2019 SUBJECTIVE: Mr. Vigil is doing well today. He remains afebrile. Cultures reveal E coli, gram-negative yennifer, Staphylococcus aureus, Streptococcus. The patient's wound VAC was removed from his right foot. Two days ago, he had amputation of the toes, 2, 3, 4 and 5, the metatarsals. There was necrotic tissue debrided sharply. There was arterial bleeder closed with 4-0 nylon suture, which was all that was . The patient's post plantar skin flap looks healthy. Wound Care Team placed a wound VAC. At this point, the patient is doing well. We would continue intravenous antibiotics. These are determined by Dr. Ramirez and follow up cultures. Overall, his wound looks good. Outpatient wound care be arranged. He can have outpatient oral antibiotics once sensitivities have returned from his cultures. He did have 2/2 positive blood cultures for Streptococcus. Antibiotic treatment per Dr. Ramirez. I will see him in my office in 2 to 3 weeks outpatient wound care. [facility] Wound VAC care has been ordered by telehealth case manager. I will see him as needed this week and call if necessary. Job ID: [id number]
[2019-05-14] MEDS: Loperamide HCl 2 MG CAP PO PRN ×2 (00:46→06:05)
[2019-05-14 05:48] LABS: #Eosinphils 0.3 thou/uL (0.0-0.7); #Lymphocytes 0.8 thou/uL (1.20-3.40); #Monocytes 0.7 thou/uL (0.11-0.59); #Neutrophils 5.1 thou/uL (1.40-6.50); %Basophils 0.3 % (0.0-1.0); %Eosinophils 3.8 % (0.0-10.0); %Lymphocytes 11.5 % (21.0-51.0); %Monocytes 10.3 % (0.0-10.0); %Neutrophils 74.2 % (42.0-75.0); Hemoglobin 9.8 g/dL (14.0-18.0); Mean Corpuscular HGB CONC 34.8 g/dL (32.0-36.0); Mean Corpuscular Hemoglobin 31.2 pg (27.0-31.0); Mean Corpuscular Volume 89.5 fL (78.0-98.0); Mean Platelet Volume 9.6 fL (7.4-10.4); Platelet Count 191 thou/uL (130-400); RBC Distribution Width 10.8 % (11.5-14.5); Red Blood Cell (RBC) Count 3.15 mill/uL (4.70-6.10); White Blood Cell (WBC) Count 6.9 thou/uL (4.8-10.8)
[2019-05-14] MEDS: metroNIDAZOLE 500 MG in Premix Bag 1 BAG IVPB SCH ×3 (06:05→22:38)
[2019-05-14] MEDS: Sodium Chloride 0.9% 1,000 ML IV SCH ×2 (06:05→16:27)
[2019-05-14] MEDS: Cefepime 1 GM in Sodium Chloride 0.9% 100 ML IVPB SCH ×3 (06:05→20:40)
[2019-05-14 06:18] LABS: Anion Gap 10 mmol/L (10-20); BUN (Urea Nitrogen) 12 mg/dL (8.4-25.7); Calc. Creatinine Clearance 108 mL/min (70-130); Calcium 8.2 mg/dL (7.8-10.44); Carbon Dioxide 24 mmol/L (23-31); Chloride 106 mmol/L (98-107); Estimated GFR-MDRD 79; Glucose 222 mg/dL (80-115); Potassium 3.4 mmol/L (3.5-5.1); Sodium 137 mmol/L (136-145)
[2019-05-14] MEDS: Famotidine 20 MG TAB PO SCH ×2 (08:55→20:41)
[2019-05-14] MEDS: metFORMIN 500 MG TAB PO SCH ×2 (08:55→16:51)
[2019-05-14] MEDS: Enoxaparin Sodium 30 MG/0.3 ML SYRINGE SC SCH (08:55)
[2019-05-14] MEDS ORDERED: Glimepiride 1 MG TAB PO SCH ×2 (09:00→09:15)
[2019-05-14] MEDS ORDERED: Ondansetron PF 4 MG/2 ML Vial IVP PRN (12:29)
--- NOTE | 2019-05-14 17:24 | PDOC.HOSPP ---
- Subjective Encounter Date: 05/14/19 Encounter Time: 11:30 Subjective: Mr. Vigil was seen today in follow-up of diabetic foot infection. He did not have pain in his foot last night, but did have diarrhea once again. - Objective Vital Signs & Weight: Vital Signs (12 hours) Temp Pulse Pulse Pulse Resp BP BP 05/14/19 11:50 81 73 143/76 H 163/82 H 05/14/19 11:31 98.7 F 69 16 05/14/19 08:30 05/14/19 08:20 100.2 F H 80 16 BP BP Pulse Ox Pulse Ox Pulse Ox 05/14/19 11:50 99 97 05/14/19 11:31 138/90 95 05/14/19 08:30 99 05/14/19 08:20 129/68 97 Weight Admit Weight 207 lb 4.8 oz Weight 217 lb 3.2 oz I&O: 05/13/19 05/14/19 05/15/19 06:59 06:59 06:59 Intake Total 3215 3750 Output Total 1400 1640 Balance 1815 2110 Result Diagrams: 05/14/19 04:46 05/14/19 04:46 Additional Labs: Accuchecks 05/14/19 05/14/19 05/13/19 10:37 05:30 20:12 POC Glucose 215 H 217 H 250 H 05/13/19 05:27 POC Glucose 204 H Hospitalist ROS - Medication Medications: Active Medications Generic Name Dose Route Start Last Admin Trade Name Freq PRN Reason Stop Dose Admin Hydrocodone Bitart/Acetaminophen 1 tab 05/10/19 16:19 05/13/19 03:22 [place] 5/325 PO 1 tab Q4H PRN Administration Moderate Pain (4-6) Enoxaparin Sodium 30 mg 05/11/19 09:00 05/14/19 08:55 Lovenox SC 30 mg 0900 WAYNE Administration Famotidine 20 mg 05/10/19 21:00 05/14/19 08:55 Pepcid PO 20 mg BID WAYNE Administration Sodium Chloride 1,000 mls @ 75 mls/hr 05/10/19 16:19 05/14/19 16:27 Normal Saline 0.9% IV Not Given .[id number] WAYNE Cefepime HCl 1 gm/ Sodium 100 mls @ 200 mls/hr 05/11/19 21:00 05/14/19 12:25 Chloride IVPB 100 mls 0500,1300,2100 WAYNE Administration Metronidazole 500 mg/ Device 100 mls @ 100 mls/hr 05/11/19 22:00 05/14/19 14: 32 IVPB 100 mls Q8HR WAYNE Administration Insulin Human Lispro 0 units 05/10/19 16:19 05/13/19 12:23 Humalog SC 4 unit .MODERATE SLIDING SC PRN Administration Moderate Correctional Scale Insulin Human Lispro 0 units 05/10/19 16:19 05/13/19 22:41 Humalog SC 2 unit .BEDTIME SLIDING SC PRN Administration Bedtime Correctional Scale Loperamide HCl 2 mg 05/10/19 22:14 05/14/19 06:05 Imodium PO 2 mg PRN PRN Administration Diarrhea/Loose Stools Loperamide HCl 4 mg 05/13/19 19:38 05/13/19 19:48 Imodium PO 05/15/19 19:39 4 mg ONE PRN Administration Diarrhea/Loose Stools Metformin HCl 1,000 mg 05/14/19 17:00 05/14/19 16:51 Glucophage PO 1,000 mg BID-WM WAYNE Administration Sodium Chloride 10 ml 05/10/19 21:00 05/14/19 09:47 Flush - Normal Saline IVF Not Given Q12HR WAYNE - Exam Eye: PERRL, anicteric sclera ENT: normocephalic atraumatic, no oropharyngeal lesions (poor dentition) Heart: RRR, no gallops, no rubs, normal peripheral pulses, murmur present, II/IV Respiratory: CTAB, no wheezes, no rales, no ronchi, normal chest expansion, no tachypnea, normal percussion Gastrointestinal: soft, non-tender, non-distended, normal bowel sounds, no palpable masses, no hepatomegaly, no splenomegaly Extremities: 1+ LE edema (mild erythema of the right foot, wound vac is in place ) Skin: normal turgor Hosp A/P (1) Diabetic foot infection Code(s): E11.628 - TYPE 2 DIABETES MELLITUS WITH OTHER SKIN COMPLICATIONS; L08.9 - LOCAL INFECTION OF THE SKIN AND SUBCUTANEOUS TISSUE, UNSP Status: Acute (2) Sepsis Code(s): A41.9 - SEPSIS, UNSPECIFIED ORGANISM Status: Acute (3) Syncope Code(s): R55 - SYNCOPE AND COLLAPSE Status: Acute (4) Diabetes mellitus type 2 in nonobese Code(s): E11.9 - TYPE 2 DIABETES MELLITUS WITHOUT COMPLICATIONS Status: Chronic (5) Diabetic peripheral neuropathy Code(s): E11.42 - TYPE 2 DIABETES MELLITUS WITH DIABETIC POLYNEUROPATHY Status : Acute - Plan * Diabetic foot infection- continue local wound care, and Cefepime and Flagyl IV * Will need to await arrangements for Out patient wound care and outpatient wound vac needed? * Will need to determine the best antibiotic regimen for home * Strep Bacteremia-this is covered with the current antibiotics * DM- blood glucose is a bit better- continue Metformin and SSI * Hopefully home Thursday
[2019-05-14] MEDS: Gabapentin 100 MG CAP PO SCH (20:41)
[2019-05-14] MEDS: HumaLOG 300 UNITS/3 ML VIAL SC PRN (21:09)
[2019-05-15 05:44] LABS: #Eosinphils 0.3 thou/uL (0.0-0.7); #Lymphocytes 0.8 thou/uL (1.20-3.40); #Monocytes 0.8 thou/uL (0.11-0.59); #Neutrophils 4.6 thou/uL (1.40-6.50); %Basophils 0.3 % (0.0-1.0); %Lymphocytes 12.3 % (21.0-51.0); %Monocytes 11.8 % (0.0-10.0); %Neutrophils 71.7 % (42.0-75.0); Hemoglobin 9.8 g/dL (14.0-18.0); Mean Corpuscular HGB CONC 35.2 g/dL (32.0-36.0); Mean Corpuscular Hemoglobin 31.7 pg (27.0-31.0); Mean Platelet Volume 9.1 fL (7.4-10.4); Platelet Count 218 thou/uL (130-400); RBC Distribution Width 10.9 % (11.5-14.5); Red Blood Cell (RBC) Count 3.09 mill/uL (4.70-6.10); White Blood Cell (WBC) Count 6.4 thou/uL (4.8-10.8)
[2019-05-15 05:51] LABS: Anion Gap 11 mmol/L (10-20); BUN (Urea Nitrogen) 8 mg/dL (8.4-25.7); Calc. Creatinine Clearance 121 mL/min (70-130); Calcium 8.1 mg/dL (7.8-10.44); Carbon Dioxide 22 mmol/L (23-31); Chloride 106 mmol/L (98-107); Estimated GFR-MDRD 90; Glucose 202 mg/dL (80-115); Potassium 3.5 mmol/L (3.5-5.1); Sodium 135 mmol/L (136-145)
[2019-05-15] MEDS: Cefepime 1 GM in Sodium Chloride 0.9% 100 ML IVPB SCH ×3 (06:39→21:17)
[2019-05-15] MEDS: HumaLOG 300 UNITS/3 ML VIAL SC PRN (06:39)
[2019-05-15] MEDS: Sodium Chloride 0.9% 1,000 ML IV SCH ×2 (06:43→21:17)
[2019-05-15] MEDS: Enoxaparin Sodium 30 MG/0.3 ML SYRINGE SC SCH (07:51)
[2019-05-15] MEDS: Saccharomyces boulardii 250 MG CAP PO SCH (07:51)
[2019-05-15] MEDS: metFORMIN 500 MG TAB PO SCH ×2 (07:51→16:37)
[2019-05-15] MEDS: Glimepiride 1 MG TAB PO SCH (07:52)
[2019-05-15] MEDS: Famotidine 20 MG TAB PO SCH ×2 (07:52→21:13)
[2019-05-15] MEDS: metroNIDAZOLE 500 MG in Premix Bag 1 BAG IVPB SCH ×3 (07:59→21:23)
[2019-05-15] MEDS ORDERED: guaiFENesin/Dextromethorphan 10 ML UDCUP PO PRN (10:03)
[2019-05-15] MEDS ORDERED: Guaifenesin DM 100-10/5 ML UDCUP PO PRN (11:15)
--- NOTE | 2019-05-15 12:05 | PDOC.HOSPP ---
- Subjective Encounter Date: 05/15/19 Encounter Time: 12:04 Subjective: Doing well overall. No pain in the foot. He does report a dry cough. He says the BM's are less frequent, still a little loose. Not uncommon for him. He reports he was following his blood sugars at home and they were good. He was on Metformin at some point in the past, but most recently he was using Nepali herbs. He is good with going back on the metformin. - Objective Vital Signs & Weight: Vital Signs (12 hours) Temp Pulse Resp BP BP Pulse Ox 05/15/19 11:16 98.7 F 75 16 135/70 95 05/15/19 07:46 99.6 F 73 16 147/73 H 96 05/15/19 04:00 98.2 F 78 16 126/71 98 Weight Admit Weight 207 lb 4.8 oz Weight 217 lb 3.2 oz I&O: 05/14/19 05/15/19 05/16/19 06:59 06:59 06:59 Intake Total 3750 580 Output Total 1640 625 Balance 2110 -45 Result Diagrams: 05/15/19 05:20 05/15/19 05:20 Additional Labs: Accuchecks 05/15/19 05/15/19 05/14/19 11:01 06:40 19:53 POC Glucose 157 H 200 H 219 H 05/14/19 17:40 POC Glucose 226 H Hospitalist ROS - Medication Medications: Active Medications Generic Name Dose Route Start Last Admin Trade Name Freq PRN Reason Stop Dose Admin Hydrocodone Bitart/Acetaminophen 1 tab 05/10/19 16:19 05/13/19 03:22 [place] 5/325 PO 1 tab Q4H PRN Administration Moderate Pain (4-6) Enoxaparin Sodium 30 mg 05/11/19 09:00 05/15/19 07:51 Lovenox SC 30 mg 0900 WAYNE Administration Famotidine 20 mg 05/10/19 21:00 05/15/19 07:52 Pepcid PO 20 mg BID WAYNE Administration Gabapentin 100 mg 05/14/19 21:00 05/14/19 20:41 Neurontin PO 100 mg HS WAYNE Administration Glimepiride 1 mg 05/15/19 08:00 05/15/19 07:52 Amaryl PO 1 mg QAM-WM WAYNE Administration Sodium Chloride 1,000 mls @ 75 mls/hr 05/10/19 16:19 05/15/19 06:43 Normal Saline 0.9% IV 1,000 mls .[id number] WAYNE Administration Cefepime HCl 1 gm/ Sodium 100 mls @ 200 mls/hr 05/11/19 21:00 05/15/19 06:39 Chloride IVPB 100 mls 0500,1300,2100 WAYNE Administration Metronidazole 500 mg/ Device 100 mls @ 100 mls/hr 05/11/19 22:00 05/15/19 07: 59 IVPB 100 mls Q8HR WAYNE Administration Insulin Human Lispro 0 units 05/10/19 16:19 05/15/19 06:39 Humalog SC 2 unit .MODERATE SLIDING SC PRN Administration Moderate Correctional Scale Insulin Human Lispro 0 units 05/10/19 16:19 05/14/19 21:09 Humalog SC 2 unit .BEDTIME SLIDING SC PRN Administration Bedtime Correctional Scale Loperamide HCl 2 mg 05/10/19 22:14 05/14/19 06:05 Imodium PO 2 mg PRN PRN Administration Diarrhea/Loose Stools Loperamide HCl 4 mg 05/13/19 19:38 05/13/19 19:48 Imodium PO 05/15/19 19:39 4 mg ONE PRN Administration Diarrhea/Loose Stools Metformin HCl 1,000 mg 05/14/19 17:00 05/15/19 07:51 Glucophage PO 1,000 mg BID-WM AWYNE Administration Saccharomyces Boulardii 250 mg 05/15/19 09:00 05/15/19 07:51 Florastor PO 250 mg DAILY WAYNE Administration Sodium Chloride 10 ml 05/10/19 21:00 05/15/19 09:40 Flush - Normal Saline IVF Not Given Q12HR WAYNE - Exam General Appearance: NAD, awake alert Neck: supple, symmetric, no JVD, no thyromegaly, no lymphadenopathy, no carotid bruit Heart: RRR, no murmur, no gallops, no rubs, normal peripheral pulses Respiratory: CTAB, no wheezes, no rales, no ronchi, normal chest expansion, no tachypnea, normal percussion Gastrointestinal: soft, non-tender, non-distended, normal bowel sounds, no palpable masses, no hepatomegaly, no splenomegaly, no bruit Extremities: 1+ LE edema Extremities - other findings: Right foot with post op boot, dressing and wound vac. Neurological: cranial nerve grossly intact, normal sensation to touch, no weakness, no focal deficits, no new deficit Musculoskeletal: normal tone Psychiatric: normal affect, normal behavior, A&O x 3 Hosp A/P (1) Streptococcal bacteremia Code(s): R78.81 - BACTEREMIA; B95.5 - UNSP STREPTOCOCCUS THE CAUSE OF DISEASES CLASSD [id number] Status: Acute (2) Diabetic foot infection Code(s): E11.628 - TYPE 2 DIABETES MELLITUS WITH OTHER SKIN COMPLICATIONS; L08.9 - LOCAL INFECTION OF THE SKIN AND SUBCUTANEOUS TISSUE, UNSP Status: Acute (3) Diabetic peripheral neuropathy Code(s): E11.42 - TYPE 2 DIABETES MELLITUS WITH DIABETIC POLYNEUROPATHY Status : Acute (4) Sepsis Code(s): A41.9 - SEPSIS, UNSPECIFIED ORGANISM Status: Acute (5) Syncope Code(s): R55 - SYNCOPE AND COLLAPSE Status: Acute (6) Diabetes mellitus type 2 in nonobese Code(s): E11.9 - TYPE 2 DIABETES MELLITUS WITHOUT COMPLICATIONS Status: Chronic (7) Diarrhea Code(s): R19.7 - DIARRHEA, UNSPECIFIED Status: Acute (8) Anemia Code(s): D64.9 - ANEMIA, UNSPECIFIED Status: Acute (9) Acute renal failure Status: Acute - Plan Post-op amputation of right foot digits 2-5. Polymicrobial infection on cx. On Meropenem and Flagyl. ID following. Strep agalactiae bacteremia. Covered. Wound vac. Will need direction from Dr. Ramirez on abx coverage for discharge. Working on outpatient resources. Diarrhea appears to be an intermittent problem for him and not necessarily related to current issues. May have some autonomic dysfunction relative to the gut. Blood sugars are currently well controlled with po meds. These should be continued at discharge. Anemia is acute on chronic. He had some blood loss with surg and is getting some dilution affect. Renal function has completely normalized at this time.
[2019-05-15] MEDS ORDERED: guaiFENesin/DM ER PO SCH (12:15)
[2019-05-15] MEDS: Gabapentin 100 MG CAP PO SCH (21:14)
[2019-05-15] MEDS: guaiFENesin/DM ER PO SCH (21:14)
[2019-05-16] MEDS: Cefepime 1 GM in Sodium Chloride 0.9% 100 ML IVPB SCH ×3 (05:10→20:58)
[2019-05-16] MEDS: metroNIDAZOLE 500 MG in Premix Bag 1 BAG IVPB SCH ×3 (05:10→21:09)
[2019-05-16] MEDS: guaiFENesin/DM ER PO SCH ×2 (09:00→20:57)
[2019-05-16] MEDS: Glimepiride 1 MG TAB PO SCH ×2 (09:00→18:02)
[2019-05-16] MEDS: metFORMIN 500 MG TAB PO SCH ×2 (09:00→18:01)
[2019-05-16] MEDS: Famotidine 20 MG TAB PO SCH ×2 (09:01→20:57)
[2019-05-16] MEDS: Enoxaparin Sodium 30 MG/0.3 ML SYRINGE SC SCH (09:01)
[2019-05-16] MEDS: Saccharomyces boulardii 250 MG CAP PO SCH (09:01)
[2019-05-16] MEDS: Sodium Chloride 0.9% 1,000 ML IV SCH (09:02)
--- NOTE | 2019-05-16 10:13 | PRG ---
DATE OF SERVICE: 05/15/2019 SUBJECTIVE: Not much pain, no respiratory symptoms or abdominal pain, no diarrhea. OBJECTIVE: VITAL SIGNS: Temperature max 100.2 on the 28th and has been afebrile since, BP 140/62, pulse 83. GENERAL: Awake, alert, oriented. LUNGS: Clear. HEART: S1, S2, regular rate. ABDOMEN: Soft, not distended or tender. No ascites. No bladder distention. EXTREMITIES: Right foot with a dressing, it was not removed. The wound photo note was not placed for review yet. LABORATORY DATA: White cell count down from 21 to 6.4, hemoglobin 9.8, platelets 218. Sodium 135, creatinine 0.85. Microbiology with E coli which has a broad susceptibility profile. The second gram-negative yennifer not susceptibility tested, Staphylococcus aureus which is methicillin-susceptible and group B Streptococcus. The margin of amputation shows inflammation extending into resection margins. ASSESSMENT AND DISCUSSION: Injury, right foot, in the setting of diabetes mellitus type 2 with aggressive necrotizing infection status post a transmetatarsal amputation second through fifth toes, right side, polymicrobial elissa identified, and we will plan to continue Rocephin and Flagyl for another 4 weeks at least since the margin is still compromised, PICC line placement. Job ID: [id number]
--- NOTE | 2019-05-16 13:02 | SPC ---
Ultrasound and Fluoroscopic guided left upper extremity single lumen PICC placement: 11/09/2018 HISTORY: Need for central vascular access. FINDINGS: Informed consent obtained prior to the procedure. Left antecubital fossa prepped and draped in normal sterile fashion. Skin overlying the basilic vein anesthetized with 1% buffered lidocaine. With direct sonographic guid ance, vascular access is obtained via the basilic vein and an 0.018in wire was advanced to the cavoatrial junction. Intravascular length is calculated at 45 cm and of the PICC is cut accordingly. Needle is removed and replaced with a peel-away sheath. The PICC was advanced over the wire. Wire and peel-away sheath were removed. The tip of the catheter overlies the cavoatrial junction. The port flushes well and the catheter is ready for use. Exposure data: 0.0 minutes of fluoroscopic time 3 mGy per centimeter squared IMPRESSION: Successful ultrasound guided placement of a left upper extremity PICC.
--- NOTE | 2019-05-16 14:35 | PRG ---
DATE OF SERVICE: 05/16/2019 SUBJECTIVE: The patient is seen and examined at the bedside. He is not having any pain at the time of my visit. He complains about a lot of dry cough. OBJECTIVE: VITAL SIGNS: Blood pressure is 134/64, pulse is 76, respirations 18, temperature 98.7, maximal temperature is 99.4 and yesterday it was 100.2. HEENT: His head is atraumatic and normocephalic. Eyes are PERRLA. Sclerae are nonicteric. Oral mucosa is moist. NECK: Supple. LUNGS: Clear. HEART: S1 and S2 normal. ABDOMEN: Soft, nontender. Bowel sounds are present. No organomegaly. EXTREMITIES: Right foot is dressed. The wound VAC was removed. This is status post amputation of the toes 2, 3, 4, and 5, the metatarsals. NEUROLOGIC: He is alert and oriented x4. There are no any motor deficits. LABORATORY DATA: No labs today. IMPRESSION: 1. Diabetic foot infection. 2. Sepsis. 3. Syncope. 4. Diabetes mellitus, type 2. 5. Diabetic peripheral neuropathy. 6. Cough. PLAN: Chest x-ray. Start Codeine with a guaifenesin q.6 hours. Get case management to work on his antibiotic treatments for outpatient basis and discontinue IV fluids. He should be able to go home in the next 24 hours. If everything is arranged with the wound VAC and antibiotic treatment. Job ID: [id number]
--- NOTE | 2019-05-16 14:57 | RAD ---
EXAM: Portable chest PROVIDED CLINICAL HISTORY: Cough COMPARISON: 05/10/2019 FINDINGS: Cardiac and mediastinal silhouette is within normal limits. No focal consolidation, pleural fluid or pneumothorax evident. Interval placement of left-sided PICC line, tip of which projects over the expected location of SVC. IMPRESSION: No evidence for an acute cardiopulmonary process.
[2019-05-16] MEDS: guaiFENesin/Codeine Phosphate 200 mg/20 mg 10 ml UD Cup PO SCH ×2 (15:50→20:57)
[2019-05-16] MEDS: Gabapentin 100 MG CAP PO SCH (20:57)
[2019-05-17] MEDS: guaiFENesin/Codeine Phosphate 200 mg/20 mg 10 ml UD Cup PO SCH ×4 (03:23→20:25)
[2019-05-17] MEDS: metroNIDAZOLE 500 MG in Premix Bag 1 BAG IVPB SCH ×3 (05:20→20:27)
[2019-05-17] MEDS: Cefepime 1 GM in Sodium Chloride 0.9% 100 ML IVPB SCH ×3 (05:21→20:27)
[2019-05-17] MEDS: metFORMIN 500 MG TAB PO SCH ×2 (08:57→17:48)
[2019-05-17] MEDS: Glimepiride 1 MG TAB PO SCH ×2 (08:57→17:48)
[2019-05-17] MEDS: Saccharomyces boulardii 250 MG CAP PO SCH (08:58)
[2019-05-17] MEDS: Enoxaparin Sodium 30 MG/0.3 ML SYRINGE SC SCH (08:58)
[2019-05-17] MEDS: Famotidine 20 MG TAB PO SCH ×2 (08:58→20:26)
[2019-05-17] MEDS: guaiFENesin/DM ER PO SCH ×2 (08:58→20:27)
--- NOTE | 2019-05-17 18:14 | PDOC.HOSPP ---
- Subjective Subjective: Seen and examined. Setting up in chair, denies pain, no apparent distress. Patient has wound VAC in place. Patient has PICC line in place. Antibiotics have been selected and waiting for insurance to approve home infusion. - Objective Vital Signs & Weight: Vital Signs (12 hours) Temp Pulse Pulse Pulse Resp BP BP 05/17/19 16:09 80 70 140/78 157/74 H 05/17/19 15:06 98.5 F 18 L 69 H 05/17/19 11:42 99.3 F 73 18 05/17/19 07:10 99.1 F 77 18 BP BP Pulse Ox 05/17/19 16:09 05/17/19 15:06 144/67 H 18 L 05/17/19 11:42 134/72 97 05/17/19 07:10 151/64 H 94 L Weight Admit Weight 207 lb 4.8 oz Weight 227 lb I&O: 05/16/19 05/17/19 05/18/19 06:59 06:59 06:59 Intake Total 3995 1270 Output Total 1401 Balance 3995 -131 Result Diagrams: 05/15/19 05:20 05/15/19 05:20 Additional Labs: Accuchecks 05/17/19 05/17/19 05/17/19 17:50 10:59 05:49 POC Glucose 93 144 H 120 H 05/16/19 20:24 POC Glucose 158 H Radiology Reviewed by me: Yes (CXR) Hospitalist ROS - Review of Systems All other systems reviewed; all pertinent +/- noted in HPI/Subj - Medication Medications: Active Medications Generic Name Dose Route Start Last Admin Trade Name Freq PRN Reason Stop Dose Admin Hydrocodone Bitart/Acetaminophen 1 tab 05/10/19 16:19 05/13/19 03:22 [place] 5/325 PO 1 tab Q4H PRN Administration Moderate Pain (4-6) Enoxaparin Sodium 30 mg 05/11/19 09:00 05/17/19 08:58 Lovenox SC 30 mg 0900 WAYNE Administration Famotidine 20 mg 05/10/19 21:00 05/17/19 08:58 Pepcid PO 20 mg BID WAYNE Administration Gabapentin 100 mg 05/14/19 21:00 05/16/19 20:57 Neurontin PO 100 mg HS WAYNE Administration Glimepiride 2 mg 05/16/19 17:00 05/17/19 17:48 Amaryl PO 2 mg BID-WM WAYNE Administration Guaifenesin/Codeine Phosphate 10 ml 05/16/19 15:00 05/17/19 14:17 Robitussin Ac PO 10 ml 0300,0900,1500,2100 WAYNE Administration Guaifenesin/Dextromethorphan 2 tab 05/15/19 21:00 05/17/19 08:58 Mucinex Dm PO 2 tab Q12HR WAYNE Administration Cefepime HCl 1 gm/ Sodium 100 mls @ 200 mls/hr 05/11/19 21:00 05/17/19 14:17 Chloride IVPB 100 mls 0500,1300,2100 WAYNE Administration Metronidazole 500 mg/ Device 100 mls @ 100 mls/hr 05/11/19 22:00 05/17/19 14: 17 IVPB 100 mls Q8HR WAYNE Administration Insulin Human Lispro 0 units 05/10/19 16:19 05/15/19 06:39 Humalog SC 2 unit .MODERATE SLIDING SC PRN Administration Moderate Correctional Scale Insulin Human Lispro 0 units 05/10/19 16:19 05/14/19 21:09 Humalog SC 2 unit .BEDTIME SLIDING SC PRN Administration Bedtime Correctional Scale Loperamide HCl 2 mg 05/10/19 22:14 05/14/19 06:05 Imodium PO 2 mg PRN PRN Administration Diarrhea/Loose Stools Metformin HCl 1,000 mg 05/14/19 17:00 05/17/19 17:48 Glucophage PO 1,000 mg BID-WM WAYNE Administration Saccharomyces Boulardii 250 mg 05/15/19 09:00 05/17/19 08:58 Florastor PO 250 mg DAILY WAYNE Administration Sodium Chloride 10 ml 05/10/19 21:00 05/17/19 08:59 Flush - Normal Saline IVF 10 ml Q12HR WAYNE Administration - Exam General Appearance: NAD, awake alert Eye: anicteric sclera ENT: no oropharyngeal lesions, moist mucosa Neck: supple, symmetric, no lymphadenopathy Heart: no murmur, no gallops, no rubs Respiratory: CTAB, no wheezes, no rales, no ronchi Gastrointestinal: soft, non-tender, non-distended, normal bowel sounds, no guarding, no rigidity Extremities: 1+ LE edema Skin - other findings: Wound vac in place, see wound care pictures for details Musculoskeletal: no muscle wasting Psychiatric: normal affect, A&O x 3 Hosp A/P (1) DM type 2, uncontrolled, with neuropathy Code(s): E11.40 - TYPE 2 DIABETES MELLITUS WITH DIABETIC NEUROPATHY, UNSP; E11.65 - TYPE 2 DIABETES MELLITUS WITH HYPERGLYCEMIA Status: Chronic (2) Diabetic foot infection Code(s): E11.628 - TYPE 2 DIABETES MELLITUS WITH OTHER SKIN COMPLICATIONS; L08.9 - LOCAL INFECTION OF THE SKIN AND SUBCUTANEOUS TISSUE, UNSP Status: Acute (3) Diabetic peripheral neuropathy Code(s): E11.42 - TYPE 2 DIABETES MELLITUS WITH DIABETIC POLYNEUROPATHY Status : Chronic (4) Sepsis Code(s): A41.9 - SEPSIS, UNSPECIFIED ORGANISM Status: Resolved (5) Streptococcal bacteremia Code(s): R78.81 - BACTEREMIA; B95.5 - UNSP STREPTOCOCCUS THE CAUSE OF DISEASES CLASSD ELSWHR Status: Resolved (6) Syncope Code(s): R55 - SYNCOPE AND COLLAPSE Status: Resolved - Plan Plan: medical unit telemetry infectious disease consultation, recommendations appreciated surgery consultation, recommendations appreciated patient has PICC line in place IV antibiotics are selected pending insurance approval for home infusion continue long and short acting insulin for glucose control continue other home medications as able
[2019-05-17] MEDS: Gabapentin 100 MG CAP PO SCH (20:26)
[2019-05-17] MEDS: Loperamide HCl 2 MG CAP PO PRN (20:26)
[2019-05-18] MEDS: guaiFENesin/Codeine Phosphate 200 mg/20 mg 10 ml UD Cup PO SCH ×2 (03:00→09:50)
[2019-05-18] MEDS: metroNIDAZOLE 500 MG in Premix Bag 1 BAG IVPB SCH ×3 (05:14→20:31)
[2019-05-18] MEDS: Cefepime 1 GM in Sodium Chloride 0.9% 100 ML IVPB SCH ×3 (05:14→20:29)
[2019-05-18] MEDS: Glimepiride 1 MG TAB PO SCH ×2 (09:49→16:22)
[2019-05-18] MEDS: guaiFENesin/DM ER PO SCH (09:50)
[2019-05-18] MEDS: metFORMIN 500 MG TAB PO SCH ×2 (09:50→16:22)
[2019-05-18] MEDS: Enoxaparin Sodium 30 MG/0.3 ML SYRINGE SC SCH (09:50)
[2019-05-18] MEDS: Famotidine 20 MG TAB PO SCH ×2 (09:50→20:29)
[2019-05-18] MEDS: Saccharomyces boulardii 250 MG CAP PO SCH (09:51)
[2019-05-18 13:10] VITALS: BMI 30.9
--- NOTE | 2019-05-18 13:39 | PDOC.HOSPP ---
- Subjective Subjective: Seen and examined. Discussed delay in discharge being related to insurance delay. Will need IV ABX in home vs inpatient setting if insurance will not approve home infusion. Patient has some mild loose stool, states this is a normal side effect of antibiotics. Loose stool 1-2 times per day and is not liquid, no blood or black material. - Objective Vital Signs & Weight: Vital Signs (12 hours) Temp Pulse Resp BP BP Pulse Ox 05/18/19 12:03 99.1 F 74 18 140/72 95 05/18/19 07:53 99.1 F 72 18 140/77 98 05/18/19 03:43 98.5 F 67 16 127/69 Weight Admit Weight 207 lb 4.8 oz Weight 228 lb I&O: 05/17/19 05/18/19 05/19/19 06:59 06:59 06:59 Intake Total 1270 1515 Output Total 1401 Balance -131 1515 Result Diagrams: 05/15/19 05:20 05/15/19 05:20 Additional Labs: Accuchecks 05/18/19 05/18/19 05/17/19 10:57 05:50 21:15 POC Glucose 116 H 74 98 05/17/19 17:50 POC Glucose 93 Hospitalist ROS - Review of Systems All other systems reviewed; all pertinent +/- noted in HPI/Subj - Medication Medications: Active Medications Generic Name Dose Route Start Last Admin Trade Name Freq PRN Reason Stop Dose Admin Hydrocodone Bitart/Acetaminophen 1 tab 05/10/19 16:19 05/13/19 03:22 [place] 5/325 PO 1 tab Q4H PRN Administration Moderate Pain (4-6) Enoxaparin Sodium 30 mg 05/11/19 09:00 05/18/19 09:50 Lovenox SC 30 mg 0900 WAYNE Administration Famotidine 20 mg 05/10/19 21:00 05/18/19 09:50 Pepcid PO 20 mg BID WAYNE Administration Gabapentin 100 mg 05/14/19 21:00 05/17/19 20:26 Neurontin PO 100 mg HS WAYNE Administration Glimepiride 2 mg 05/16/19 17:00 05/18/19 09:49 Amaryl PO 2 mg BID-WM WAYNE Administration Guaifenesin/Codeine Phosphate 10 ml 05/16/19 15:00 05/18/19 09:50 Robitussin Ac PO 10 ml 0300,0900,1500,2100 WAYNE Administration Guaifenesin/Dextromethorphan 2 tab 05/15/19 21:00 05/18/19 09:50 Mucinex Dm PO 2 tab Q12HR WAYNE Administration Cefepime HCl 1 gm/ Sodium 100 mls @ 200 mls/hr 05/11/19 21:00 05/18/19 05:14 Chloride IVPB 100 mls 0500,1300,2100 WAYNE Administration Metronidazole 500 mg/ Device 100 mls @ 100 mls/hr 05/11/19 22:00 05/18/19 05: 14 IVPB 100 mls Q8HR WAYNE Administration Insulin Human Lispro 0 units 05/10/19 16:19 05/15/19 06:39 Humalog SC 2 unit .MODERATE SLIDING SC PRN Administration Moderate Correctional Scale Insulin Human Lispro 0 units 05/10/19 16:19 05/14/19 21:09 Humalog SC 2 unit .BEDTIME SLIDING SC PRN Administration Bedtime Correctional Scale Loperamide HCl 2 mg 05/10/19 22:14 05/17/19 20:26 Imodium PO 2 mg PRN PRN Administration Diarrhea/Loose Stools Metformin HCl 1,000 mg 05/14/19 17:00 05/18/19 09:50 Glucophage PO 1,000 mg BID-WM WAYNE Administration Saccharomyces Boulardii 250 mg 05/15/19 09:00 05/18/19 09:51 Florastor PO 250 mg DAILY WAYNE Administration Sodium Chloride 10 ml 05/10/19 21:00 05/18/19 09:51 Flush - Normal Saline IVF 10 ml Q12HR WAYNE Administration - Exam General Appearance: NAD Eye: PERRL, anicteric sclera ENT: normocephalic atraumatic, moist mucosa Neck: supple, no lymphadenopathy Heart: RRR, no gallops, no rubs Respiratory: CTAB, no wheezes, no rales, no ronchi Gastrointestinal: soft, non-distended, no guarding, no rigidity Extremities: no edema Skin: no lesions, no rashes Neurological: cranial nerve grossly intact, no weakness Musculoskeletal: no muscle wasting Psychiatric: normal affect, A&O x 3 Hosp A/P (1) DM type 2, uncontrolled, with neuropathy Code(s): E11.40 - TYPE 2 DIABETES MELLITUS WITH DIABETIC NEUROPATHY, UNSP; E11.65 - TYPE 2 DIABETES MELLITUS WITH HYPERGLYCEMIA Status: Chronic (2) Diabetic foot infection Code(s): E11.628 - TYPE 2 DIABETES MELLITUS WITH OTHER SKIN COMPLICATIONS; L08.9 - LOCAL INFECTION OF THE SKIN AND SUBCUTANEOUS TISSUE, UNSP Status: Acute (3) Diabetic peripheral neuropathy Code(s): E11.42 - TYPE 2 DIABETES MELLITUS WITH DIABETIC POLYNEUROPATHY Status : Chronic (4) Sepsis Code(s): A41.9 - SEPSIS, UNSPECIFIED ORGANISM Status: Resolved (5) Streptococcal bacteremia Code(s): R78.81 - BACTEREMIA; B95.5 - UNSP STREPTOCOCCUS THE CAUSE OF DISEASES CLASSD ELSWHR Status: Resolved (6) Syncope Code(s): R55 - SYNCOPE AND COLLAPSE Status: Resolved - Plan Plan: medical unit telemetry infectious disease consultation, recommendations appreciated surgery consultation, recommendations appreciated patient has PICC line in place IV antibiotics are selected per ID pending insurance approval for home infusion - Will need inpatient antibiotics if insurance will not approve home infusion continue glucose controlled with Metformin and Glipizide. ISS for prandial coverage if needed continue other home medications as able
[2019-05-18] MEDS ORDERED: Benzonatate 100 MG CAP PO PRN (13:43)
[2019-05-18] MEDS: guaiFENesin/Codeine Phosphate 200 mg/20 mg 10 ml UD Cup PO PRN ×2 (16:22→20:30)
[2019-05-18] MEDS: Loperamide HCl 2 MG CAP PO PRN (20:29)
[2019-05-18] MEDS: Gabapentin 100 MG CAP PO SCH (20:29)
[2019-05-19] MEDS: Cefepime 1 GM in Sodium Chloride 0.9% 100 ML IVPB SCH ×3 (05:51→21:48)
[2019-05-19] MEDS: metroNIDAZOLE 500 MG in Premix Bag 1 BAG IVPB SCH ×3 (05:51→21:47)
[2019-05-19] MEDS: Famotidine 20 MG TAB PO SCH ×2 (08:43→21:48)
[2019-05-19] MEDS: metFORMIN 500 MG TAB PO SCH ×2 (08:43→17:16)
[2019-05-19] MEDS: Enoxaparin Sodium 30 MG/0.3 ML SYRINGE SC SCH (08:43)
[2019-05-19] MEDS: Saccharomyces boulardii 250 MG CAP PO SCH (08:43)
[2019-05-19] MEDS: Glimepiride 1 MG TAB PO SCH ×2 (08:44→17:16)
--- NOTE | 2019-05-19 11:57 | PDOC.HOSPP ---
- Subjective Subjective: Seen and examined. Patient remains in good spirits. Waiting on insurance to approve ABX for home infusion, if this cannot be set up will need SNF placement for IV antibiotics. Blood sugars in the 70's, though asymptomatic. - Objective Vital Signs & Weight: Vital Signs (12 hours) Temp Pulse Resp BP Pulse Ox 05/19/19 07:12 98.9 F 79 25 H 150/81 H 97 05/19/19 04:00 98.6 F 76 16 151/70 H 91 L Weight Admit Weight 207 lb 4.8 oz Weight 233 lb 4.8 oz I&O: 05/18/19 05/19/19 05/20/19 06:59 06:59 06:59 Intake Total 1515 2320 Balance 1515 2320 Result Diagrams: 05/15/19 05:20 05/15/19 05:20 Additional Labs: Accuchecks 05/19/19 05/19/19 05/18/19 10:52 05:41 16:47 POC Glucose 124 H 78 72 Hospitalist ROS - Review of Systems All other systems reviewed; all pertinent +/- noted in HPI/Subj - Medication Medications: Active Medications Generic Name Dose Route Start Last Admin Trade Name Freq PRN Reason Stop Dose Admin Acetaminophen 1,000 mg 05/11/19 18:10 05/18/19 16:23 Tylenol PO 1,000 mg Q6H PRN Administration Moderate to Severe Pain (6-10) Hydrocodone Bitart/Acetaminophen 1 tab 05/10/19 16:19 05/13/19 03:22 [place] 5/325 PO 1 tab Q4H PRN Administration Moderate Pain (4-6) Enoxaparin Sodium 30 mg 05/11/19 09:00 05/19/19 08:43 Lovenox SC 30 mg 0900 WAYNE Administration Famotidine 20 mg 05/10/19 21:00 05/19/19 08:43 Pepcid PO 20 mg BID WAYNE Administration Gabapentin 100 mg 05/14/19 21:00 05/18/19 20:29 Neurontin PO 100 mg HS WAYNE Administration Glimepiride 1 mg 05/18/19 17:00 05/19/19 08:44 Amaryl PO 1 mg BID-WM WAYNE Administration Guaifenesin/Codeine Phosphate 10 ml 05/18/19 13:43 05/18/19 20:30 Robitussin Ac PO 10 ml Q6H PRN Administration Cough Cefepime HCl 1 gm/ Sodium 100 mls @ 200 mls/hr 05/11/19 21:00 05/19/19 05:51 Chloride IVPB 100 mls 0500,1300,2100 WAYNE Administration Metronidazole 500 mg/ Device 100 mls @ 100 mls/hr 05/11/19 22:00 05/19/19 05: 51 IVPB 100 mls Q8HR WAYNE Administration Insulin Human Lispro 0 units 05/10/19 16:19 05/15/19 06:39 Humalog SC 2 unit .MODERATE SLIDING SC PRN Administration Moderate Correctional Scale Insulin Human Lispro 0 units 05/10/19 16:19 05/14/19 21:09 Humalog SC 2 unit .BEDTIME SLIDING SC PRN Administration Bedtime Correctional Scale Loperamide HCl 2 mg 05/10/19 22:14 05/18/19 20:29 Imodium PO 2 mg PRN PRN Administration Diarrhea/Loose Stools Metformin HCl 1,000 mg 05/14/19 17:00 05/19/19 08:43 Glucophage PO 1,000 mg BID-WM WAYNE Administration Saccharomyces Boulardii 250 mg 05/15/19 09:00 05/19/19 08:43 Florastor PO 250 mg DAILY WAYNE Administration Sodium Chloride 10 ml 05/10/19 21:00 05/19/19 08:44 Flush - Normal Saline IVF 10 ml Q12HR WAYNE Administration - Exam General Appearance: NAD, awake alert Eye: anicteric sclera ENT: normocephalic atraumatic, moist mucosa Neck: supple, symmetric, no lymphadenopathy Heart: RRR, no murmur, no gallops, no rubs Respiratory: CTAB, no wheezes, no rales, no ronchi Gastrointestinal: soft, non-tender, non-distended, no palpable masses, no guarding, no rigidity Extremities: no edema Skin: no lesions, no rashes Skin - other findings: Wound vac in position Neurological: cranial nerve grossly intact, normal sensation to touch Musculoskeletal: normal strength, no muscle wasting Psychiatric: normal affect, A&O x 3 Hosp A/P (1) DM type 2, uncontrolled, with neuropathy Code(s): E11.40 - TYPE 2 DIABETES MELLITUS WITH DIABETIC NEUROPATHY, UNSP; E11.65 - TYPE 2 DIABETES MELLITUS WITH HYPERGLYCEMIA Status: Chronic (2) Diabetic foot infection Code(s): E11.628 - TYPE 2 DIABETES MELLITUS WITH OTHER SKIN COMPLICATIONS; L08.9 - LOCAL INFECTION OF THE SKIN AND SUBCUTANEOUS TISSUE, UNSP Status: Acute (3) Diabetic peripheral neuropathy Code(s): E11.42 - TYPE 2 DIABETES MELLITUS WITH DIABETIC POLYNEUROPATHY Status : Chronic (4) Sepsis Code(s): A41.9 - SEPSIS, UNSPECIFIED ORGANISM Status: Resolved (5) Streptococcal bacteremia Code(s): R78.81 - BACTEREMIA; B95.5 - UNSP STREPTOCOCCUS THE CAUSE OF DISEASES CLASSD ELSWHR Status: Resolved (6) Syncope Code(s): R55 - SYNCOPE AND COLLAPSE Status: Resolved - Plan Plan: medical unit telemetry infectious disease consultation, recommendations appreciated surgery consultation, recommendations appreciated patient has PICC line in place IV antibiotics are selected per ID pending insurance approval for home infusion - Will need inpatient antibiotics if insurance will not approve home infusion continue glucose controlled with Metformin and Glipizide, decrease dose. ISS for prandial coverage if needed continue other home medications as able
[2019-05-19] MEDS: Gabapentin 100 MG CAP PO SCH (21:48)
[2019-05-19] MEDS: guaiFENesin/Codeine Phosphate 200 mg/20 mg 10 ml UD Cup PO PRN (21:55)
[2019-05-20] MEDS: metroNIDAZOLE 500 MG in Premix Bag 1 BAG IVPB SCH ×3 (05:34→21:17)
[2019-05-20] MEDS: Cefepime 1 GM in Sodium Chloride 0.9% 100 ML IVPB SCH ×3 (05:34→20:15)
[2019-05-20] MEDS: Famotidine 20 MG TAB PO SCH ×2 (08:38→20:16)
[2019-05-20] MEDS: Saccharomyces boulardii 250 MG CAP PO SCH (08:41)
[2019-05-20] MEDS: metFORMIN 500 MG TAB PO SCH ×2 (08:41→16:41)
[2019-05-20] MEDS: Enoxaparin Sodium 30 MG/0.3 ML SYRINGE SC SCH (08:41)
[2019-05-20] MEDS: Glimepiride 1 MG TAB PO SCH ×2 (08:46→16:41)
--- NOTE | 2019-05-20 14:45 | PQF ---
DATE: 05-20-19 ATTN: DR. NILO VELASQUEZ / DR. SHAWNA MADRIGAL Please exercise your independent, professional judgment in responding to the clarification form. Clinical indicators are provided on the bottom of this form for your review Please check appropriate box(s) to clarify if the following diagnosis has been ruled in or ruled out: Necrotizing Fasciitis [ ] Ruled in diagnosis [ ] Continue to treat [ ] Resolved [ x] Ruled out diagnosis [ ] Other diagnosis [ ] Unable to determine In addition, please specify: Present on Admission (POA): [ ] Yes [ x ] No [ ] Unable to determine For continuity of documentation, please document condition throughout progress notes and discharge summary. Thank You. CLINICAL INDICATORS - SIGNS / SYMPTOMS / LABS: [facility] 05/11 PN: I AM CONCERNED HE MAY HAVE SOME ELEMENT OF FASCIITIS [facility] OP note 05-11-19: (...severe necrotizing infection; ...necrosis & gangrene) Ashley Consult 05-11-19: (aggressive necrotizing infection 2/2 Group B Streptococcus). RISK FACTORS: Ashley Consult 05-11-19: PERFORATING INJURY TO THE RIGHT FOOT IN THE SETTING OF DIABETES MELLITUS, TYPE 2, NEUROPATHY WITH AGGRESSIVE NECROTIZING INFECTION SECONDARY TO GROUP B STREPTOCOCCUS TREATMENTS: Ashley Consult 05-11-19: WE WILL SWITCH THE PATIENT TO CEFEPIME PLUS FLAGYL MAR 05-11-19: MAXIPIME IV (This form is maintained as a part of the permanent medical record) 2014 [employer] All Rights Reserved CELI [email or web address] Office: [phone] [facility]
--- NOTE | 2019-05-20 15:35 | PDOC.HOSPP ---
- Subjective Subjective: Seen and examined. Patient clinically stable. Low normal blood sugars have improved after decreasing dose of glimepiride. Patient is in good spirits considering the circumstances of the delay waiting for insurance company to approve antibiotics at home versus inpatient. - Objective Vital Signs & Weight: Vital Signs (12 hours) Temp Pulse Resp BP BP Pulse Ox 05/20/19 11:56 98.6 F 76 18 158/81 H 98 05/20/19 07:32 98.6 F 78 18 140/70 96 05/20/19 07:30 96 05/20/19 04:00 98.4 F 72 18 147/68 H 95 Weight Admit Weight 207 lb 4.8 oz Weight 228 lb 1.6 oz I&O: 05/19/19 05/20/19 05/21/19 06:59 06:59 06:59 Intake Total 2320 2430 Output Total 400 Balance 2320 2030 Result Diagrams: 05/15/19 05:20 05/15/19 05:20 Additional Labs: Accuchecks 05/20/19 05/20/19 05/19/19 12:02 06:01 20:09 POC Glucose 94 110 142 H 05/19/19 17:01 POC Glucose 103 Hospitalist ROS - Review of Systems All other systems reviewed; all pertinent +/- noted in HPI/Subj - Medication Medications: Active Medications Generic Name Dose Route Start Last Admin Trade Name Freq PRN Reason Stop Dose Admin Acetaminophen 1,000 mg 05/11/19 18:10 05/18/19 16:23 Tylenol PO 1,000 mg Q6H PRN Administration Moderate to Severe Pain (6-10) Hydrocodone Bitart/Acetaminophen 1 tab 05/10/19 16:19 05/13/19 03:22 [place] 5/325 PO 1 tab Q4H PRN Administration Moderate Pain (4-6) Enoxaparin Sodium 30 mg 05/11/19 09:00 05/20/19 08:41 Lovenox SC 30 mg 0900 WAYNE Administration Famotidine 20 mg 05/10/19 21:00 05/20/19 08:38 Pepcid PO 20 mg BID WAYNE Administration Gabapentin 100 mg 05/14/19 21:00 05/19/19 21:48 Neurontin PO 100 mg HS WAYNE Administration Glimepiride 1 mg 05/18/19 17:00 05/20/19 08:46 Amaryl PO 1 mg BID-WM WAYNE Administration Guaifenesin/Codeine Phosphate 10 ml 05/18/19 13:43 05/19/19 21:55 Robitussin Ac PO 10 ml Q6H PRN Administration Cough Cefepime HCl 1 gm/ Sodium 100 mls @ 200 mls/hr 05/11/19 21:00 05/20/19 12:44 Chloride IVPB 100 mls 0500,1300,2100 WAYNE Administration Metronidazole 500 mg/ Device 100 mls @ 100 mls/hr 05/11/19 22:00 05/20/19 14: 54 IVPB 100 mls Q8HR WAYNE Administration Insulin Human Lispro 0 units 05/10/19 16:19 05/15/19 06:39 Humalog SC 2 unit .MODERATE SLIDING SC PRN Administration Moderate Correctional Scale Insulin Human Lispro 0 units 05/10/19 16:19 05/14/19 21:09 Humalog SC 2 unit .BEDTIME SLIDING SC PRN Administration Bedtime Correctional Scale Loperamide HCl 2 mg 05/10/19 22:14 05/18/19 20:29 Imodium PO 2 mg PRN PRN Administration Diarrhea/Loose Stools Metformin HCl 1,000 mg 05/14/19 17:00 05/20/19 08:41 Glucophage PO 1,000 mg BID-WM WAYNE Administration Saccharomyces Boulardii 250 mg 05/15/19 09:00 05/20/19 08:41 Florastor PO 250 mg DAILY WAYNE Administration Sodium Chloride 10 ml 05/10/19 21:00 05/20/19 08:42 Flush - Normal Saline IVF 10 ml Q12HR WAYNE Administration - Exam General Appearance: NAD, awake alert Eye: anicteric sclera ENT: normocephalic atraumatic, moist mucosa Neck: supple, symmetric, no lymphadenopathy Heart: RRR, no murmur, no gallops, no rubs Respiratory: CTAB, no wheezes, no rales, normal chest expansion, no tachypnea Gastrointestinal: soft, non-tender, non-distended, normal bowel sounds, no guarding, no rigidity Extremities: no edema Skin - other findings: Wound vac in place Neurological: cranial nerve grossly intact, no weakness Musculoskeletal: no muscle wasting Psychiatric: normal affect, A&O x 3 Hosp A/P (1) DM type 2, uncontrolled, with neuropathy Code(s): E11.40 - TYPE 2 DIABETES MELLITUS WITH DIABETIC NEUROPATHY, UNSP; E11.65 - TYPE 2 DIABETES MELLITUS WITH HYPERGLYCEMIA Status: Chronic (2) Diabetic foot infection Code(s): E11.628 - TYPE 2 DIABETES MELLITUS WITH OTHER SKIN COMPLICATIONS; L08.9 - LOCAL INFECTION OF THE SKIN AND SUBCUTANEOUS TISSUE, UNSP Status: Acute (3) Diabetic peripheral neuropathy Code(s): E11.42 - TYPE 2 DIABETES MELLITUS WITH DIABETIC POLYNEUROPATHY Status : Chronic (4) Sepsis Code(s): A41.9 - SEPSIS, UNSPECIFIED ORGANISM Status: Resolved (5) Streptococcal bacteremia Code(s): R78.81 - BACTEREMIA; B95.5 - UNSP STREPTOCOCCUS THE CAUSE OF DISEASES CLASSD ELSWHR Status: Resolved (6) Syncope Code(s): R55 - SYNCOPE AND COLLAPSE Status: Resolved - Plan Plan: medical unit telemetry infectious disease consultation, recommendations appreciated surgery consultation, recommendations appreciated patient has PICC line in place IV antibiotics are selected per ID pending insurance approval for home infusion - Will need inpatient antibiotics if insurance will not approve home infusion continue glucose controlled with Metformin and Glimeperide, decreased dose. ISS for prandial coverage if needed continue other home medications as able
[2019-05-20] MEDS: guaiFENesin/Codeine Phosphate 200 mg/20 mg 10 ml UD Cup PO PRN (20:16)
[2019-05-20] MEDS: Gabapentin 100 MG CAP PO SCH (20:16)
[2019-05-21] MEDS: Cefepime 1 GM in Sodium Chloride 0.9% 100 ML IVPB SCH ×3 (05:22→20:51)
[2019-05-21] MEDS: metroNIDAZOLE 500 MG in Premix Bag 1 BAG IVPB SCH ×3 (05:27→21:02)
[2019-05-21] MEDS: Saccharomyces boulardii 250 MG CAP PO SCH (09:04)
[2019-05-21] MEDS: Glimepiride 1 MG TAB PO SCH ×2 (09:04→16:24)
[2019-05-21] MEDS: Famotidine 20 MG TAB PO SCH ×2 (09:04→20:51)
[2019-05-21] MEDS: metFORMIN 500 MG TAB PO SCH ×2 (09:04→16:24)
[2019-05-21] MEDS: Enoxaparin Sodium 30 MG/0.3 ML SYRINGE SC SCH (09:08)
--- NOTE | 2019-05-21 13:41 | EKG ---
Test Reason : Blood Pressure : / mmHG Vent. Rate : 099 BPM Atrial Rate : 099 BPM P-R Int : 186 ms QRS Dur : 158 ms QT Int : 400 ms P-R-T Axes : 052 -01 164 degrees QTc Int : 513 ms Normal sinus rhythm Left bundle branch block Abnormal ECG Confirmed by RODNEY POTTS ([id number]), newspaper managing editor JAYLIN SAHA ([id number]) on 05/21/2019 1:40:56 PM Referred By: Confirmed By:RODNEY POTTS
--- NOTE | 2019-05-21 15:02 | PDOC.HOSPP ---
- Subjective Subjective: Seen and examined. Patient breathing well on room air. No acute problems or complaints. Patient is sitting up in the chair. Wound VAC in place. All questions answered in detail. - Objective Vital Signs & Weight: Vital Signs (12 hours) Temp Pulse Resp BP BP Pulse Ox 05/21/19 11:18 98.7 F 76 16 158/79 H 05/21/19 08:00 94 L 05/21/19 07:26 98.8 F 72 18 152/81 H 94 L 05/21/19 04:56 98.7 F 83 18 148/56 H 92 L Weight Admit Weight 207 lb 4.8 oz Weight 228 lb 1.6 oz I&O: 05/20/19 05/21/19 05/22/19 06:59 06:59 06:59 Intake Total 2430 2100 Output Total 400 Balance 2029 2099 Result Diagrams: 05/15/19 05:20 05/15/19 05:20 Additional Labs: Accuchecks 05/21/19 05/21/19 05/20/19 11:24 04:30 20:06 POC Glucose 92 104 152 H 05/20/19 17:18 POC Glucose 119 H Hospitalist ROS - Review of Systems All other systems reviewed; all pertinent +/- noted in HPI/Subj - Medication Medications: Active Medications Generic Name Dose Route Start Last Admin Trade Name Freq PRN Reason Stop Dose Admin Acetaminophen 1,000 mg 05/11/19 18:10 05/18/19 16:23 Tylenol PO 1,000 mg Q6H PRN Administration Moderate to Severe Pain (6-10) Enoxaparin Sodium 30 mg 05/11/19 09:00 05/21/19 09:08 Lovenox SC 30 mg 0900 WAYNE Administration Famotidine 20 mg 05/10/19 21:00 05/21/19 09:04 Pepcid PO 20 mg BID WAYNE Administration Gabapentin 100 mg 05/14/19 21:00 05/20/19 20:16 Neurontin PO 100 mg HS WAYNE Administration Glimepiride 1 mg 05/18/19 17:00 05/21/19 09:04 Amaryl PO 1 mg BID-WM WAYNE Administration Guaifenesin/Codeine Phosphate 10 ml 05/18/19 13:43 05/20/19 20:16 Robitussin Ac PO 10 ml Q6H PRN Administration Cough Cefepime HCl 1 gm/ Sodium 100 mls @ 200 mls/hr 05/11/19 21:00 05/21/19 12:12 Chloride IVPB 100 mls 0500,1300,2100 WAYNE Administration Metronidazole 500 mg/ Device 100 mls @ 100 mls/hr 05/11/19 22:00 05/21/19 05: 27 IVPB 100 mls Q8HR WAYNE Administration Insulin Human Lispro 0 units 05/10/19 16:19 05/15/19 06:39 Humalog SC 2 unit .MODERATE SLIDING SC PRN Administration Moderate Correctional Scale Insulin Human Lispro 0 units 05/10/19 16:19 05/14/19 21:09 Humalog SC 2 unit .BEDTIME SLIDING SC PRN Administration Bedtime Correctional Scale Loperamide HCl 2 mg 05/10/19 22:14 05/18/19 20:29 Imodium PO 2 mg PRN PRN Administration Diarrhea/Loose Stools Metformin HCl 1,000 mg 05/14/19 17:00 05/21/19 09:04 Glucophage PO 1,000 mg BID-WM WAYNE Administration Saccharomyces Boulardii 250 mg 05/15/19 09:00 05/21/19 09:04 Florastor PO 250 mg DAILY WAYNE Administration Sodium Chloride 10 ml 05/10/19 21:00 05/21/19 09:05 Flush - Normal Saline IVF 10 ml Q12HR WAYNE Administration - Exam General Appearance: NAD, awake alert Eye: PERRL, anicteric sclera ENT: normocephalic atraumatic, moist mucosa Neck: supple, symmetric, no lymphadenopathy Heart: RRR, no murmur, no gallops Respiratory: CTAB, no wheezes, no rales, no ronchi Gastrointestinal: soft, non-tender, no palpable masses, no guarding, no rigidity Extremities: no edema Skin: no rashes Neurological: cranial nerve grossly intact, normal sensation to touch Musculoskeletal: no muscle wasting Psychiatric: normal affect, A&O x 3 Hosp A/P (1) DM type 2, uncontrolled, with neuropathy Code(s): E11.40 - TYPE 2 DIABETES MELLITUS WITH DIABETIC NEUROPATHY, UNSP; E11.65 - TYPE 2 DIABETES MELLITUS WITH HYPERGLYCEMIA Status: Chronic (2) Diabetic foot infection Code(s): E11.628 - TYPE 2 DIABETES MELLITUS WITH OTHER SKIN COMPLICATIONS; L08.9 - LOCAL INFECTION OF THE SKIN AND SUBCUTANEOUS TISSUE, UNSP Status: Acute (3) Diabetic peripheral neuropathy Code(s): E11.42 - TYPE 2 DIABETES MELLITUS WITH DIABETIC POLYNEUROPATHY Status : Chronic (4) Sepsis Code(s): A41.9 - SEPSIS, UNSPECIFIED ORGANISM Status: Resolved (5) Streptococcal bacteremia Code(s): R78.81 - BACTEREMIA; B95.5 - UNSP STREPTOCOCCUS THE CAUSE OF DISEASES CLASSD ELSWHR Status: Resolved (6) Syncope Code(s): R55 - SYNCOPE AND COLLAPSE Status: Resolved - Plan Plan: medical unit telemetry infectious disease consultation, recommendations appreciated surgery consultation, recommendations appreciated patient has PICC line in place IV antibiotics are selected per ID pending insurance approval for home infusion - Will need inpatient antibiotics if insurance will not approve home infusion continue glucose controlled with Metformin and Glimeperide, decreased dose. ISS for prandial coverage if needed BP has not been controlled, will start Lisinopril DM regimen: -Metformin 1000 mg BID -Glimeperide 1mg BID, decreased dose for low BS -Lisionopril 5 mg daily -Atorvastatin 10 mg daily -ASA 81 md daily continue other home medications as able
[2019-05-21] MEDS: Loperamide HCl 2 MG CAP PO PRN ×2 (16:25→21:07)
[2019-05-21] MEDS: Gabapentin 300 MG CAP PO SCH (20:51)
[2019-05-21] MEDS: Atorvastatin Calcium 10 MG TAB PO SCH (20:51)
[2019-05-21] MEDS: guaiFENesin/Codeine Phosphate 200 mg/20 mg 10 ml UD Cup PO PRN (21:01)
[2019-05-22] MEDS: Cefepime 1 GM in Sodium Chloride 0.9% 100 ML IVPB SCH (04:56)
[2019-05-22] MEDS: metroNIDAZOLE 500 MG in Premix Bag 1 BAG IVPB SCH (05:00)
[2019-05-22] MEDS: Glimepiride 1 MG TAB PO SCH ×2 (08:32→16:57)
[2019-05-22] MEDS: Saccharomyces boulardii 250 MG CAP PO SCH (08:33)
[2019-05-22] MEDS: Famotidine 20 MG TAB PO SCH ×2 (08:33→20:22)
[2019-05-22] MEDS: Lisinopril 5 MG TAB PO SCH (08:33)
[2019-05-22] MEDS: metFORMIN 500 MG TAB PO SCH ×2 (08:33→16:57)
[2019-05-22] MEDS: Aspirin 81 mg Enteric Coated Tablet PO SCH (08:33)
[2019-05-22] MEDS: Enoxaparin Sodium 30 MG/0.3 ML SYRINGE SC SCH (08:34)
--- NOTE | 2019-05-22 12:24 | PDOC.HOSPP ---
- Subjective Subjective: Seen and examined. Discuss with the patient the importance of diabetic regimen including Metformin, glimepiride, lisinopril, atorvastatin, and aspirin. Time was given for questions, all questions answered in detail. Patient stable for lower level of care, pending insurance approval. LE edema worse on right leg, recommended to elevate as able. - Objective Vital Signs & Weight: Vital Signs (12 hours) Temp Pulse Resp BP BP BP Pulse Ox 05/22/19 08:33 78 152/84 H 05/22/19 08:00 98.4 F 78 18 152/84 H 93 L 05/22/19 04:00 98.4 F 78 18 152/84 H 93 L Weight Admit Weight 207 lb 4.8 oz Weight 228 lb 1.6 oz I&O: 05/21/19 05/22/19 05/23/19 06:59 06:59 06:59 Intake Total 2100 1300 Balance 2100 1300 Result Diagrams: 05/15/19 05:20 05/15/19 05:20 Additional Labs: Accuchecks 05/22/19 05/22/19 05/21/19 11:23 04:12 19:22 POC Glucose 152 H 89 110 05/21/19 16:04 POC Glucose 109 Hospitalist ROS - Review of Systems All other systems reviewed; all pertinent +/- noted in HPI/Subj - Medication Medications: Active Medications Generic Name Dose Route Start Last Admin Trade Name Freq PRN Reason Stop Dose Admin Acetaminophen 1,000 mg 05/11/19 18:10 05/18/19 16:23 Tylenol PO 1,000 mg Q6H PRN Administration Moderate to Severe Pain (6-10) Aspirin 81 mg 05/22/19 09:00 05/22/19 08:33 Ecotrin PO 81 mg DAILY WAYNE Administration Atorvastatin Calcium 10 mg 05/21/19 21:00 05/21/19 20:51 Lipitor PO 10 mg HS WAYNE Administration Benzonatate 100 mg 05/18/19 13:43 05/22/19 11:34 Tessalon PO 100 mg Q4H PRN Administration Cough Enoxaparin Sodium 30 mg 05/11/19 09:00 05/22/19 08:34 Lovenox SC 30 mg 0900 WAYNE Administration Famotidine 20 mg 05/10/19 21:00 05/22/19 08:33 Pepcid PO 20 mg BID WAYNE Administration Gabapentin 300 mg 05/21/19 21:00 05/21/19 20:51 Neurontin PO 300 mg HS WAYNE Administration Glimepiride 1 mg 05/18/19 17:00 05/22/19 08:32 Amaryl PO 1 mg BID-WM WAYNE Administration Guaifenesin/Codeine Phosphate 10 ml 05/18/19 13:43 05/21/19 21:01 Robitussin Ac PO 10 ml Q6H PRN Administration Cough Insulin Human Lispro 0 units 05/10/19 16:19 05/15/19 06:39 Humalog SC 2 unit .MODERATE SLIDING SC PRN Administration Moderate Correctional Scale Insulin Human Lispro 0 units 05/10/19 16:19 05/14/19 21:09 Humalog SC 2 unit .BEDTIME SLIDING SC PRN Administration Bedtime Correctional Scale Lisinopril 5 mg 05/22/19 09:00 05/22/19 08:33 Zestril PO 5 mg DAILY WAYNE Administration Loperamide HCl 2 mg 05/10/19 22:14 05/21/19 21:07 Imodium PO 2 mg PRN PRN Administration Diarrhea/Loose Stools Metformin HCl 1,000 mg 05/14/19 17:00 05/22/19 08:33 Glucophage PO 1,000 mg BID-WM WAYNE Administration Saccharomyces Boulardii 250 mg 05/15/19 09:00 05/22/19 08:33 Florastor PO 250 mg DAILY WAYNE Administration Sodium Chloride 10 ml 05/10/19 21:00 05/22/19 08:34 Flush - Normal Saline IVF 10 ml Q12HR WAYNE Administration - Exam General Appearance: NAD Eye: PERRL, anicteric sclera ENT: normocephalic atraumatic, moist mucosa Neck: supple, symmetric, no lymphadenopathy Heart: RRR, no murmur, no gallops, no rubs Respiratory: CTAB, no wheezes, no rales Gastrointestinal: soft, non-tender, non-distended, no guarding, no rigidity Extremities - other findings: +4 LE right Skin - other findings: Wound vac in place, see wound care pictures for details Neurological: cranial nerve grossly intact, no weakness, no focal deficits Psychiatric: normal affect, A&O x 3 Hosp A/P (1) DM type 2, uncontrolled, with neuropathy Code(s): E11.40 - TYPE 2 DIABETES MELLITUS WITH DIABETIC NEUROPATHY, UNSP; E11.65 - TYPE 2 DIABETES MELLITUS WITH HYPERGLYCEMIA Status: Chronic (2) Diabetic foot infection Code(s): E11.628 - TYPE 2 DIABETES MELLITUS WITH OTHER SKIN COMPLICATIONS; L08.9 - LOCAL INFECTION OF THE SKIN AND SUBCUTANEOUS TISSUE, UNSP Status: Acute (3) Diabetic peripheral neuropathy Code(s): E11.42 - TYPE 2 DIABETES MELLITUS WITH DIABETIC POLYNEUROPATHY Status : Chronic (4) Sepsis Code(s): A41.9 - SEPSIS, UNSPECIFIED ORGANISM Status: Resolved (5) Streptococcal bacteremia Code(s): R78.81 - BACTEREMIA; B95.5 - UNSP STREPTOCOCCUS THE CAUSE OF DISEASES CLASSD ELSWHR Status: Resolved (6) Syncope Code(s): R55 - SYNCOPE AND COLLAPSE Status: Resolved - Plan Plan: medical unit telemetry infectious disease consultation, recommendations appreciated surgery consultation, recommendations appreciated patient has PICC line in place IV antibiotics are selected per ID pending insurance approval for home infusion - Will need inpatient antibiotics if insurance will not approve home infusion continue glucose controlled with Metformin and Glimeperide, decreased dose. ISS for prandial coverage if needed BP has not been controlled, will start Lisinopril DM regimen: -Metformin 1000 mg BID -Glimeperide 1mg BID, decreased dose for low BS -Lisionopril 5 mg daily -Atorvastatin 10 mg daily -ASA 81 md daily Elevate right leg while in bed/ chair. Compression stalking. May need diuretics if unable to get fluid down. Patient reports he is not drinking much fluids. continue other home medications as able
[2019-05-22] MEDS ORDERED: HYDROcodone/Acetaminophen 5/325 mg Tablet PO PRN (13:42)
[2019-05-22] MEDS: cefTRIAXone\\ROCEPHIN 2 GM in Sodium Chloride 0.9% 100 ML IVPB SCH (13:50)
[2019-05-22] MEDS: metroNIDAZOLE 500 MG TAB PO SCH ×2 (13:50→20:22)
[2019-05-22] MEDS: guaiFENesin/Codeine Phosphate 200 mg/20 mg 10 ml UD Cup PO PRN (20:22)
[2019-05-22] MEDS: Atorvastatin Calcium 10 MG TAB PO SCH (20:22)
[2019-05-22] MEDS: Gabapentin 300 MG CAP PO SCH (20:22)
[2019-05-23] MEDS: metFORMIN 500 MG TAB PO SCH ×2 (08:39→17:15)
[2019-05-23] MEDS: Famotidine 20 MG TAB PO SCH ×2 (08:39→20:31)
[2019-05-23] MEDS: Saccharomyces boulardii 250 MG CAP PO SCH (08:39)
[2019-05-23] MEDS: Aspirin 81 mg Enteric Coated Tablet PO SCH (08:39)
[2019-05-23] MEDS: metroNIDAZOLE 500 MG TAB PO SCH ×3 (08:39→20:31)
[2019-05-23] MEDS: Glimepiride 1 MG TAB PO SCH ×2 (08:39→17:15)
[2019-05-23] MEDS: Lisinopril 5 MG TAB PO SCH (08:40)
[2019-05-23] MEDS: Enoxaparin Sodium 30 MG/0.3 ML SYRINGE SC SCH (08:42)
--- NOTE | 2019-05-23 09:44 | PDOC.HOSPP ---
- Subjective Encounter Date: 05/23/19 Encounter Time: 09:42 Subjective: no fever, chi.lls, some phantom pain at surg site - Objective Vital Signs & Weight: Vital Signs (12 hours) Temp Pulse Resp BP BP Pulse Ox 05/23/19 08:40 77 163/84 H 05/23/19 07:55 97.6 F 77 16 163/84 H 95 05/23/19 05:21 98.6 F 81 16 130/74 94 L Weight Admit Weight 207 lb 4.8 oz Weight 228 lb 1.6 oz I&O: 05/22/19 05/23/19 05/24/19 06:59 06:59 06:59 Intake Total 1300 Balance 1300 Result Diagrams: 05/15/19 05:20 05/15/19 05:20 Additional Labs: Accuchecks 05/22/19 05/22/19 05/22/19 20:28 16:39 11:23 POC Glucose 147 H 112 H 152 H Hospitalist ROS - Medication Medications: Active Medications Generic Name Dose Route Start Last Admin Trade Name Freq PRN Reason Stop Dose Admin Acetaminophen 1,000 mg 05/11/19 18:10 05/18/19 16:23 Tylenol PO 1,000 mg Q6H PRN Administration Moderate to Severe Pain (6-10) Hydrocodone Bitart/Acetaminophen 1 tab 05/22/19 13:42 05/22/19 13:54 Theodore 5/325 PO 1 tab Q6H PRN Administration Moderate to Severe Pain (6-10) Aspirin 81 mg 05/22/19 09:00 05/23/19 08:39 Ecotrin PO 81 mg DAILY WAYNE Administration Atorvastatin Calcium 10 mg 05/21/19 21:00 05/22/19 20:22 Lipitor PO 10 mg HS WAYNE Administration Benzonatate 100 mg 05/18/19 13:43 05/22/19 11:34 Tessalon PO 100 mg Q4H PRN Administration Cough Enoxaparin Sodium 30 mg 05/11/19 09:00 05/23/19 08:42 Lovenox SC 30 mg 0900 WAYNE Administration Famotidine 20 mg 05/10/19 21:00 05/23/19 08:39 Pepcid PO 20 mg BID WAYNE Administration Gabapentin 300 mg 05/21/19 21:00 05/22/19 20:22 Neurontin PO 300 mg HS WAYNE Administration Glimepiride 1 mg 05/18/19 17:00 05/23/19 08:39 Amaryl PO 1 mg BID-WM WAYNE Administration Guaifenesin/Codeine Phosphate 10 ml 05/18/19 13:43 05/22/19 20:22 Robitussin Ac PO 10 ml Q6H PRN Administration Cough Ceftriaxone Sodium 2 gm/ 100 mls @ 200 mls/hr 05/22/19 14:00 05/22/19 13:50 Sodium Chloride IVPB 100 mls Q24HR WAYNE Administration Insulin Human Lispro 0 units 05/10/19 16:19 05/15/19 06:39 Humalog SC 2 unit .MODERATE SLIDING SC PRN Administration Moderate Correctional Scale Insulin Human Lispro 0 units 05/10/19 16:19 05/14/19 21:09 Humalog SC 2 unit .BEDTIME SLIDING SC PRN Administration Bedtime Correctional Scale Lisinopril 5 mg 05/22/19 09:00 05/23/19 08:40 Zestril PO 5 mg DAILY WAYNE Administration Loperamide HCl 2 mg 05/10/19 22:14 05/21/19 21:07 Imodium PO 2 mg PRN PRN Administration Diarrhea/Loose Stools Metformin HCl 1,000 mg 05/14/19 17:00 05/23/19 08:39 Glucophage PO 1,000 mg BID-WM WAYNE Administration Metronidazole 500 mg 05/22/19 15:00 05/23/19 08:39 Flagyl PO 500 mg TID WAYNE Administration Saccharomyces Boulardii 250 mg 05/15/19 09:00 05/23/19 08:39 Florastor PO 250 mg DAILY WAYNE Administration Sodium Chloride 10 ml 05/10/19 21:00 05/23/19 08:43 Flush - Normal Saline IVF Not Given Q12HR WAYNE - Exam General Appearance: awake alert Neck: no JVD Heart: RRR, no murmur Respiratory: CTAB Gastrointestinal: soft, normal bowel sounds Extremities - other findings: R foot bandaged Hosp A/P (1) Diabetic foot infection Code(s): E11.628 - TYPE 2 DIABETES MELLITUS WITH OTHER SKIN COMPLICATIONS; L08.9 - LOCAL INFECTION OF THE SKIN AND SUBCUTANEOUS TISSUE, UNSP Status: Acute (2) DM type 2, uncontrolled, with neuropathy Code(s): E11.40 - TYPE 2 DIABETES MELLITUS WITH DIABETIC NEUROPATHY, UNSP; E11.65 - TYPE 2 DIABETES MELLITUS WITH HYPERGLYCEMIA Status: Chronic (3) Sepsis Code(s): A41.9 - SEPSIS, UNSPECIFIED ORGANISM Status: Resolved (4) Streptococcal bacteremia Code(s): R78.81 - BACTEREMIA; B95.5 - UNSP STREPTOCOCCUS THE CAUSE OF DISEASES CLASSD ELSWHR Status: Resolved - Plan cont iv rocephin /flgyl total 4 weeeks cont wound care cont accu/ss/etc placement for iv antibx
[2019-05-23] MEDS: cefTRIAXone\\ROCEPHIN 2 GM in Sodium Chloride 0.9% 100 ML IVPB SCH (13:57)
[2019-05-23] MEDS: Atorvastatin Calcium 10 MG TAB PO SCH (20:30)
[2019-05-23] MEDS: Gabapentin 300 MG CAP PO SCH (20:31)
[2019-05-23] MEDS: guaiFENesin/Codeine Phosphate 200 mg/20 mg 10 ml UD Cup PO PRN (20:39)
[2019-05-24] MEDS: Aspirin 81 mg Enteric Coated Tablet PO SCH (08:24)
[2019-05-24] MEDS: Saccharomyces boulardii 250 MG CAP PO SCH (08:24)
[2019-05-24] MEDS: Famotidine 20 MG TAB PO SCH ×2 (08:24→20:08)
[2019-05-24] MEDS: metFORMIN 500 MG TAB PO SCH ×2 (08:24→17:06)
[2019-05-24] MEDS: Lisinopril 5 MG TAB PO SCH (08:24)
[2019-05-24] MEDS: metroNIDAZOLE 500 MG TAB PO SCH ×3 (08:24→20:08)
[2019-05-24] MEDS: Enoxaparin Sodium 30 MG/0.3 ML SYRINGE SC SCH (08:24)
[2019-05-24] MEDS: Glimepiride 1 MG TAB PO SCH ×2 (08:24→17:06)
--- NOTE | 2019-05-24 10:24 | PDOC.HOSPP ---
- Subjective Encounter Date: 05/24/19 Encounter Time: 10:21 Subjective: no fever , etc - Objective Vital Signs & Weight: Vital Signs (12 hours) Temp Pulse Resp BP BP Pulse Ox 05/24/19 08:24 76 145/81 H 05/24/19 08:00 92 L 05/24/19 07:24 99.0 F 76 18 145/81 H 92 L Weight Admit Weight 207 lb 4.8 oz Weight 228 lb 1.6 oz I&O: 05/23/19 05/24/19 05/25/19 06:59 06:59 06:59 Intake Total 490 Balance 490 Result Diagrams: 05/15/19 05:20 05/15/19 05:20 Additional Labs: Accuchecks 05/24/19 05/23/19 05/23/19 04:46 20:10 16:10 POC Glucose 96 162 H 97 05/23/19 05/23/19 12:26 05:19 POC Glucose 89 85 Hospitalist ROS - Medication Medications: Active Medications Generic Name Dose Route Start Last Admin Trade Name Freq PRN Reason Stop Dose Admin Acetaminophen 1,000 mg 05/11/19 18:10 05/18/19 16:23 Tylenol PO 1,000 mg Q6H PRN Administration Moderate to Severe Pain (6-10) Hydrocodone Bitart/Acetaminophen 1 tab 05/22/19 13:42 05/22/19 13:54 [place] 5/325 PO 1 tab Q6H PRN Administration Moderate to Severe Pain (6-10) Aspirin 81 mg 05/22/19 09:00 05/24/19 08:24 Ecotrin PO 81 mg DAILY WAYNE Administration Atorvastatin Calcium 10 mg 05/21/19 21:00 05/23/19 20:30 Lipitor PO 10 mg HS WAYNE Administration Benzonatate 100 mg 05/18/19 13:43 05/22/19 11:34 Tessalon PO 100 mg Q4H PRN Administration Cough Enoxaparin Sodium 30 mg 05/11/19 09:00 05/24/19 08:24 Lovenox SC 30 mg 0900 WAYNE Administration Famotidine 20 mg 05/10/19 21:00 05/24/19 08:24 Pepcid PO 20 mg BID WAYNE Administration Gabapentin 300 mg 05/21/19 21:00 05/23/19 20:31 Neurontin PO 300 mg HS WAYNE Administration Glimepiride 1 mg 05/18/19 17:00 05/24/19 08:24 Amaryl PO 1 mg BID-WM WAYNE Administration Guaifenesin/Codeine Phosphate 10 ml 05/18/19 13:43 05/23/19 20:39 Robitussin Ac PO 10 ml Q6H PRN Administration Cough Ceftriaxone Sodium 2 gm/ 100 mls @ 200 mls/hr 05/22/19 14:00 05/23/19 13:57 Sodium Chloride IVPB 100 mls Q24HR WAYNE Administration Insulin Human Lispro 0 units 05/10/19 16:19 05/15/19 06:39 Humalog SC 2 unit .MODERATE SLIDING SC PRN Administration Moderate Correctional Scale Insulin Human Lispro 0 units 05/10/19 16:19 05/14/19 21:09 Humalog SC 2 unit .BEDTIME SLIDING SC PRN Administration Bedtime Correctional Scale Lisinopril 5 mg 05/22/19 09:00 05/24/19 08:24 Zestril PO 5 mg DAILY WAYNE Administration Loperamide HCl 2 mg 05/10/19 22:14 05/21/19 21:07 Imodium PO 2 mg PRN PRN Administration Diarrhea/Loose Stools Metformin HCl 1,000 mg 05/14/19 17:00 05/24/19 08:24 Glucophage PO 1,000 mg BID-WM WAYNE Administration Metronidazole 500 mg 05/22/19 15:00 05/24/19 08:24 Flagyl PO 500 mg TID WAYNE Administration Ondansetron HCl 4 mg 05/14/19 12:29 05/24/19 06:29 Zofran IVP 4 mg Q6H PRN Administration Nausea/Vomiting Saccharomyces Boulardii 250 mg 05/15/19 09:00 05/24/19 08:24 Florastor PO 250 mg DAILY WAYNE Administration Sodium Chloride 10 ml 05/10/19 21:00 05/24/19 08:25 Flush - Normal Saline IVF 10 ml Q12HR WAYNE Administration - Exam Neck: no JVD Heart: RRR, no murmur Respiratory: CTAB Gastrointestinal: soft, normal bowel sounds Extremities - other findings: R foot bandaged Hosp A/P (1) Diabetic foot infection Code(s): E11.628 - TYPE 2 DIABETES MELLITUS WITH OTHER SKIN COMPLICATIONS; L08.9 - LOCAL INFECTION OF THE SKIN AND SUBCUTANEOUS TISSUE, UNSP Status: Acute (2) DM type 2, uncontrolled, with neuropathy Code(s): E11.40 - TYPE 2 DIABETES MELLITUS WITH DIABETIC NEUROPATHY, UNSP; E11.65 - TYPE 2 DIABETES MELLITUS WITH HYPERGLYCEMIA Status: Chronic (3) Sepsis Code(s): A41.9 - SEPSIS, UNSPECIFIED ORGANISM Status: Resolved (4) Streptococcal bacteremia Code(s): R78.81 - BACTEREMIA; B95.5 - UNSP STREPTOCOCCUS THE CAUSE OF DISEASES CLASSD ELSWHR Status: Resolved - Plan cont iv rocephin /flgyl total 4 weeeks cont wound care cont accu/ss/etc placement for iv antibx
[2019-05-24] MEDS: cefTRIAXone\\ROCEPHIN 2 GM in Sodium Chloride 0.9% 100 ML IVPB SCH (14:24)
[2019-05-24] MEDS: Atorvastatin Calcium 10 MG TAB PO SCH (20:08)
[2019-05-24] MEDS: Gabapentin 300 MG CAP PO SCH (20:08)
[2019-05-24] MEDS: guaiFENesin/Codeine Phosphate 200 mg/20 mg 10 ml UD Cup PO PRN (20:10)
[2019-05-25] MEDS: Loperamide HCl 2 MG CAP PO PRN (00:45)
[2019-05-25] MEDS: Enoxaparin Sodium 30 MG/0.3 ML SYRINGE SC SCH (08:09)
[2019-05-25] MEDS: Lisinopril 5 MG TAB PO SCH (08:09)
[2019-05-25] MEDS: Saccharomyces boulardii 250 MG CAP PO SCH (08:09)
[2019-05-25] MEDS: metroNIDAZOLE 500 MG TAB PO SCH ×2 (08:09→15:13)
[2019-05-25] MEDS: metFORMIN 500 MG TAB PO SCH ×2 (08:09→16:47)
[2019-05-25] MEDS: Aspirin 81 mg Enteric Coated Tablet PO SCH (08:09)
[2019-05-25] MEDS: Famotidine 20 MG TAB PO SCH (08:09)
[2019-05-25] MEDS: Glimepiride 1 MG TAB PO SCH ×2 (08:09→16:47)
[2019-05-25 08:12] VITALS: BP 163/98
[2019-05-25 08:30] VITALS: TEMP 98.7
[2019-05-25] MEDS ORDERED: Guaifenesin DM 100-10/5 ML UDCUP PO PRN (09:50)
--- NOTE | 2019-05-25 09:54 | PDOC.HOSPP ---
- Subjective Encounter Date: 05/25/19 Encounter Time: 09:53 Subjective: no complaints - Objective Vital Signs & Weight: Vital Signs (12 hours) Temp Pulse Resp BP BP Pulse Ox 05/25/19 08:28 98.7 F 91 18 163/98 H 94 L 05/25/19 08:09 82 163/98 H 05/25/19 08:00 94 L Weight Admit Weight 207 lb 4.8 oz Weight 228 lb 1.6 oz I&O: 05/24/19 05/25/19 05/26/19 06:59 06:59 06:59 Intake Total 490 2700 Balance 490 2700 Result Diagrams: 05/15/19 05:20 05/15/19 05:20 Additional Labs: Accuchecks 05/25/19 05/24/19 05/24/19 04:16 19:29 16:00 POC Glucose 140 H 154 H 123 H 05/24/19 11:11 POC Glucose 154 H Hospitalist ROS - Medication Medications: Active Medications Generic Name Dose Route Start Last Admin Trade Name Freq PRN Reason Stop Dose Admin Acetaminophen 1,000 mg 05/11/19 18:10 05/18/19 16:23 Tylenol PO 1,000 mg Q6H PRN Administration Moderate to Severe Pain (6-10) Hydrocodone Bitart/Acetaminophen 1 tab 05/22/19 13:42 05/22/19 13:54 Jean 5/325 PO 1 tab Q6H PRN Administration Moderate to Severe Pain (6-10) Aspirin 81 mg 05/22/19 09:00 05/25/19 08:09 Ecotrin PO 81 mg DAILY WAYNE Administration Atorvastatin Calcium 10 mg 05/21/19 21:00 05/24/19 20:08 Lipitor PO 10 mg HS WAYNE Administration Benzonatate 100 mg 05/18/19 13:43 05/22/19 11:34 Tessalon PO 100 mg Q4H PRN Administration Cough Enoxaparin Sodium 30 mg 05/11/19 09:00 05/25/19 08:09 Lovenox SC 30 mg 0900 WAYNE Administration Famotidine 20 mg 05/10/19 21:00 05/25/19 08:09 Pepcid PO 20 mg BID WAYNE Administration Gabapentin 300 mg 05/21/19 21:00 05/24/19 20:08 Neurontin PO 300 mg HS WAYNE Administration Glimepiride 1 mg 05/18/19 17:00 05/25/19 08:09 Amaryl PO 1 mg BID-WM WAYNE Administration Guaifenesin/Codeine Phosphate 10 ml 05/18/19 13:43 05/24/19 20:10 Robitussin Ac PO 10 ml Q6H PRN Administration Cough Ceftriaxone Sodium 2 gm/ 100 mls @ 200 mls/hr 05/22/19 14:00 05/24/19 14:24 Sodium Chloride IVPB 100 mls Q24HR WAYNE Administration Insulin Human Lispro 0 units 05/10/19 16:19 05/15/19 06:39 Humalog SC 2 unit .MODERATE SLIDING SC PRN Administration Moderate Correctional Scale Insulin Human Lispro 0 units 05/10/19 16:19 05/14/19 21:09 Humalog SC 2 unit .BEDTIME SLIDING SC PRN Administration Bedtime Correctional Scale Lisinopril 5 mg 05/22/19 09:00 05/25/19 08:09 Zestril PO 5 mg DAILY WAYNE Administration Loperamide HCl 2 mg 05/10/19 22:14 05/25/19 00:45 Imodium PO 2 mg PRN PRN Administration Diarrhea/Loose Stools Metformin HCl 1,000 mg 05/14/19 17:00 05/25/19 08:09 Glucophage PO 1,000 mg BID-WM WAYNE Administration Metronidazole 500 mg 05/22/19 15:00 05/25/19 08:09 Flagyl PO 500 mg TID WAYNE Administration Ondansetron HCl 4 mg 05/14/19 12:29 05/24/19 06:29 Zofran IVP 4 mg Q6H PRN Administration Nausea/Vomiting Saccharomyces Boulardii 250 mg 05/15/19 09:00 05/25/19 08:09 Florastor PO 250 mg DAILY WAYNE Administration Sodium Chloride 10 ml 05/10/19 21:00 05/25/19 08:10 Flush - Normal Saline IVF 10 ml Q12HR WAYNE Administration - Exam Neck: no JVD Heart: RRR, no murmur Respiratory: CTAB Gastrointestinal: soft, normal bowel sounds Extremities: no edema Hosp A/P (1) Diabetic foot infection Code(s): E11.628 - TYPE 2 DIABETES MELLITUS WITH OTHER SKIN COMPLICATIONS; L08.9 - LOCAL INFECTION OF THE SKIN AND SUBCUTANEOUS TISSUE, UNSP Status: Acute (2) DM type 2, uncontrolled, with neuropathy Code(s): E11.40 - TYPE 2 DIABETES MELLITUS WITH DIABETIC NEUROPATHY, UNSP; E11.65 - TYPE 2 DIABETES MELLITUS WITH HYPERGLYCEMIA Status: Chronic (3) Sepsis Code(s): A41.9 - SEPSIS, UNSPECIFIED ORGANISM Status: Resolved (4) Streptococcal bacteremia Code(s): R78.81 - BACTEREMIA; B95.5 - UNSP STREPTOCOCCUS THE CAUSE OF DISEASES CLASSD ELSWHR Status: Resolved - Plan cont iv rocephin /flgyl total 4 weeeks cont wound care cont accu/ss/etc placement for iv antibx
[2019-05-25] MEDS: cefTRIAXone\\ROCEPHIN 2 GM in Sodium Chloride 0.9% 100 ML IVPB SCH (15:13)
--- NOTE | 2019-05-25 15:39 | DIS ---
DATE OF ADMISSION: 05/10/2019 DATE OF DISCHARGE: 05/25/2019 PRIMARY CARE PHYSICIAN: Eleanor PCP. DISPOSITION: Discharged home. FINAL DIAGNOSES: 1. Type 2 diabetes with diabetic foot infection. 2. 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 3. Bacteremia with Streptococcus agalactiae. 4. Acute renal failure, resolved. 5. Sepsis syndrome, resolved. 6. Syncope. 7. Dyslipidemia. DISCHARGE MEDICATIONS: 1. Aspirin 81 mg a day. 2. Lipitor 10 mg p.o. at bedtime. 3. Rocephin 2 g IV piggyback daily through June 13. 4. Neurontin 300 mg at bedtime. 5. Amaryl 1 mg p.o. b.i.d. 6. Zestril 5 mg a day. 7. Metformin 1000 mg p.o. b.i.d. 8. Metronidazole 500 mg t.i.d. through June 13. 9. Florastor 250 mg a day. ALLERGIES: NO KNOWN MEDICAL ALLERGIES. PENDING AT TIME OF DISCHARGE: Nothing. CODE STATUS: DNAR. CONSULTATIONS: Dr. Giovanni Sage, General Surgery; Dr. Roman Ramirez, Infectious Disease. PROCEDURES: 05/11/2019, amputation of toes and metatarsals 2, 3, 4, and 5 right foot with debridement, sharp resectional, left open for healing by secondary intention healing. Wound Care placed wound VAC. HOSPITAL COURSE: The patient is admitted to this [facility] Hospitalist Service through the emergency room with a history of syncope. He was noted on his right foot to have a bullous lesion, red, bruised right base of third metatarsal ulcerative lesion on the plantar surface of the foot with exudates. Admitting laboratory; sodium 128, potassium 4.1, chloride 93, CO2 of 25, BUN 23, creatinine 1.7, blood sugar was 415, lactic acid 2.3, bilirubin 2.4. White cell count 21.7, hemoglobin 13, and platelet count 173,000. CAT scan of the brain was negative for any acute intracranial process. EKG revealed a left bundle branch block, which he said was longstanding. The patient underwent a carotid Doppler study, which showed moderate stenosis of the right internal carotid artery. Diagnosis; right carotid internal artery stenosis, moderate. The patient was treated with sliding scale, IV antibiotics which based on cultures was eventually 2 g Rocephin daily, metronidazole 500 mg p.o. t.i.d. He was found to have some osteomyelitis in the resected bone and inflammation extending into the resection margins of multiple toes. He continued to receive wound care with a wound VAC and IV antibiotics on 05/16/2019. PICC line was placed in the left upper extremity, working through case management. He has now been approved for IV antibiotics to be administered at [facility] through June 13 for wound care to be administered at [facility]. His current laboratory shows his blood sugars were adequately controlled at this time. His renal function has returned to normal. Most recent CBC done 10 days ago was white count of 6.3, hemoglobin 9.8, platelet count of 218,000. The patient's cardiovascular status is stable, cardiovascular exam is normal. He is being discharged for outpatient IV antibiotics, outpatient wound care. The patient has been instructed that he needs a PCP for followup. Followup is to be arranged with Dr. Ramirez and Dr. Sage. 35 minutes spent preparing this discharge. Job ID: [id number]
--- NOTE | 2019-05-26 06:32 | PQF ---
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 Fleming, [place] Please exercise your independent, professional judgment in responding to the clarification form. Clinical indicators are provided on the bottom of this form for your review Can you please further specify if sepsis is ruled in or ruled out? Sepsis [ x] Ruled in diagnosis [ ] Continue to treat [ ] Resolved [ ] Ruled out diagnosis [ ] Cannot rule out diagnosis [ ] Other diagnosis [ ] Unable to determine In addition, please specify: Present on Admission (POA): [ x] Yes [ ] No [ ] Unable to determine For continuity of documentation, please document condition throughout progress notes and discharge summary. Thank You. CLINICAL INDICATORS - SIGNS / SYMPTOMS / LABS Hospitalist PN05/12 Dr. Arriola pg.4- "Sepsis" DS 10/ pg.1- Sepsis syndrome resolved DS 10/ pg.1- Bacteremia with streptococcus agatactiae DS 10/ pg.1- Acute renal failure resolved Ds pg.2 10- WBC 21.7, Lactic acid 2.3 DS 10/9 pg.2- He was found to have some osteomyelitis in the resected bone and inflammation extending into the resection margins of multiple toes RISK FACTORS Diabetic foot Infection- DS pg.1 Acute renal failure- DS pg.1 64yo male- H and P pg.1 Diabetic peripheral neuropathy- Hospitalist PN 05/12 pg.4 Osteomyelitis- DS pg.2 TREATMENTS IV antibiotics- DS pg.2 Wound VAC- DS pg.2 PICC line placement- DS pg.2 IV fluids- MAR 05/10 Amputation- OP report 05/11 Dr. Sage Bacterial Culture- Microbiology (This form is maintained as a part of the permanent medical record) 2014 [employer], [employer]. All Rights Reserved [email or web address] [not provided] TINAD
== END 2019-05-25 16:59 | disposition home or self-care (01) | DRG 239 ==
LOC: ERS 10:05 → 2NO 15:35 → T4-B 05-20 19:26
PROVIDERS: ADMIT Internal Medicine; ATTEND Internal Medicine
PROC: 0Y6M0ZB Detachment at Right Foot, Partial 2nd Ray, Open Approach (ICD-10-PCS; principal; 2019-05-11)
PROC: 0Y6M0ZC Detachment at Right Foot, Partial 3rd Ray, Open Approach (ICD-10-PCS; 2019-05-11)
PROC: 0Y6M0ZD Detachment at Right Foot, Partial 4th Ray, Open Approach (ICD-10-PCS; 2019-05-11)
PROC: 0Y6M0ZF Detachment at Right Foot, Partial 5th Ray, Open Approach (ICD-10-PCS; 2019-05-11)
PROC: 02HV33Z Insertion of Infusion Device into Superior Vena Cava, Percutaneous Approach (ICD-10-PCS; 2019-05-16)
PROC: B518ZZA Fluoroscopy of Superior Vena Cava, Guidance (ICD-10-PCS; 2019-05-16)
DX: E11.52 Type 2 diabetes mellitus with diabetic peripheral angiopathy with gangrene (principal); A40.1 Sepsis due to streptococcus, group B; E87.1 Hypo-osmolality and hyponatremia; N17.9 Acute kidney failure, unspecified; M86.171 Other acute osteomyelitis, right ankle and foot; D62 Acute posthemorrhagic anemia; I96 Gangrene, not elsewhere classified; Z66 Do not resuscitate; E11.65 Type 2 diabetes mellitus with hyperglycemia; A08.4 Viral intestinal infection, unspecified; I44.7 Left bundle-branch block, unspecified; E11.628 Type 2 diabetes mellitus with other skin complications; E11.42 Type 2 diabetes mellitus with diabetic polyneuropathy; B95.1 Streptococcus, group B, as the cause of diseases classified elsewhere; E11.40 Type 2 diabetes mellitus with diabetic neuropathy, unspecified; E11.69 Type 2 diabetes mellitus with other specified complication; Z91.19 Patient's noncompliance with other medical treatment and regimen
CPT/HCPCS: 36415; 36416; 36569; 51701; 70450; 71045; 80048; 80053; 81003; 81015; 82274; 82550; 83036; 83605; 83630; 83880; 84484; 85025; 87040; 87045; 87046; 87070; 87077; 87149; 87186; 87205; 87324; 87427; 87449; 88305; 88311; 90714; 93005; 93306; 93880; 96361; 96365; C1751; J0692; J0696; J1644; J1650; J2250; J2405; J2543; J2704; J3010; J3370; J3490; J7050

== ENCOUNTER 2019-05-27 10:20 | Outpatient (CLI) | payer BC ==
[2019-05-27] MEDS ORDERED: Sodium Chloride 0.9% 15 ML NEB ONE (18:00)
== END 2019-05-27 10:21 | disposition home or self-care (01) ==
LOC: WCC 10:20
PROVIDERS: ATTEND Family Medicine
DX: A41.9 Sepsis, unspecified organism (principal); L08.9 Local infection of the skin and subcutaneous tissue, unspecified; E11.9 Type 2 diabetes mellitus without complications
CPT/HCPCS: 97605; A4218

== ENCOUNTER 2019-05-29 18:18 | Emergency (ER) | payer BC | END 2019-05-29 20:25 | disposition home or self-care (01) | LOC: ERS 18:18 | DX: T85.698A Other mechanical complication of other specified internal prosthetic devices, implants and grafts, initial encounter (principal); E11.9 Type 2 diabetes mellitus without complications; Z79.84 Long term (current) use of oral hypoglycemic drugs | CPT/HCPCS: 99282 ==

== ENCOUNTER 2019-05-30 10:02 | Outpatient (CLI) | payer BC ==
[2019-05-30] MEDS ORDERED: Sodium Chloride 0.9% 15 ML NEB ONE (18:00)
== END 2019-05-30 10:03 | disposition home or self-care (01) ==
LOC: WCC 10:02
PROVIDERS: ATTEND Family Medicine
DX: A41.9 Sepsis, unspecified organism (principal); L08.9 Local infection of the skin and subcutaneous tissue, unspecified; E11.9 Type 2 diabetes mellitus without complications; R55 Syncope and collapse; R19.7 Diarrhea, unspecified
CPT/HCPCS: 97605; A4218

== ENCOUNTER 2019-06-02 13:22 | Outpatient (CLI) | payer BC ==
[2019-06-02] MEDS ORDERED: Sodium Chloride 0.9% 15 ML NEB ONE (16:37)
--- NOTE | 2019-06-02 23:40 | HP ---
HISTORY OF PRESENT ILLNESS: Mr. Sukumar Vigil is a very pleasant 64-year-old gentleman who presents to the Wound Center for evaluation of a wound of the right foot subsequent to amputation of the 2nd, 3rd, 4th, and 5th toes and metatarsals on 05/11/[address] Giovanni Sage. Negative pressure therapy was initiated intraoperatively and upon discharge from [facility], the patient was referred to the Wound Center for assistance with dressing changes of the wound VAC. During the patient's hospital stay, Mr. Vigil was seen in consultation by Dr. Roman Ramirez of Infectious Diseases. The patient is receiving IV antibiotics as per Infectious Diseases, specifically, Rocephin 2 g IV daily. The patient has no other complaints today. He denies any fever or chills. PAST MEDICAL HISTORY: 1. Diabetes mellitus. 2. Hypertension. 3. Obstructive sleep apnea. PAST SURGICAL HISTORY: 1. Right knee surgery. 2. Excision of cyst of back. 3. Right inguinal hernia repair as a child. 4. Amputation of 2nd, 3rd, 4th and 5th toes and metatarsals. 5. Sinus surgery. MEDICATIONS: 1. Metformin. 2. Aspirin 81 mg. 3. Lipitor. 4. Neurontin. 5. Amaryl. 6. Zestril. 7. Flagyl 500 mg p.o. t.i.d. 8. Rocephin 2 g IV daily. ALLERGIES: MUSHROOMS. SOCIAL HISTORY: Negative for tobacco use. The patient admits to only the occasional consumption of alcohol. FAMILY HISTORY: Significant for diabetes mellitus. The patient states that a maternal aunt and his maternal grandfather were both diagnosed with diabetes mellitus. Family history is negative for coronary artery disease. PHYSICAL EXAMINATION: VITAL SIGNS: Temperature 98.5, pulse 87, respirations 19, and blood pressure 125/66. Accu-Chek 112. GENERAL: A 64-year-old gentleman, lying on stretcher in examination room, in no acute distress. HEENT: Normocephalic, atraumatic. NECK: No nuchal rigidity. CHEST: Clear to auscultation. CV: Regular rate and rhythm. ABDOMEN: Soft. EXTREMITIES: A large wound of the right foot is present which measures approximately 9.0 x 5.0 cm. Granulation tissue is present within the wound margins. No purulent drainage is associated with the wound. No maceration of the skin of the periwound is noted. Dorsalis pedis pulse and posterior tibial pulse are both palpable on the right. NEUROLOGIC: Grossly nonfocal. ASSESSMENT AND PLAN: 1. Right foot wound as described above. Negative pressure therapy will be continued with dressing changes of the wound VAC here in the Wound Center. As stated above, the patient is receiving p.o. and IV antibiotics as per Dr. Roman Ramirez of Infectious Diseases. The patient will be seen by Dr. Sage in 1 week. I will see Miguel Musa again in 2 weeks. The patient understands and is in agreement with the preceding treatment plan. 2. Diabetes mellitus. The patient's Accu-Chek in clinic today is 112. The patient has been told that for optimal wound healing his blood glucoses should remain below 150. 3. Hypertension. 4. Obstructive sleep apnea. Job ID: [id number]
== END 2019-06-02 13:23 | disposition home or self-care (01) ==
LOC: WCC 13:22
PROVIDERS: ATTEND Family Medicine
DX: S91.301D Unspecified open wound, right foot, subsequent encounter (principal); E11.9 Type 2 diabetes mellitus without complications; I10 Essential (primary) hypertension; G47.33 Obstructive sleep apnea (adult) (pediatric)
CPT/HCPCS: A4218

== ENCOUNTER 2019-06-07 11:30 | Outpatient (CLI) | payer BC ==
[~2019-06-07 11:30] MED LIST changes: -Heparin 1,000 UNITS/ML VIAL ONE; +Sodium Chloride 0.9% 15 ML NEB ONE
== END 2019-06-07 11:31 | disposition home or self-care (01) ==
LOC: WCC 11:30
PROVIDERS: ATTEND Family Medicine
DX: E11.52 Type 2 diabetes mellitus with diabetic peripheral angiopathy with gangrene (principal); E11.40 Type 2 diabetes mellitus with diabetic neuropathy, unspecified; B95.1 Streptococcus, group B, as the cause of diseases classified elsewhere; S99.921D Unspecified injury of right foot, subsequent encounter
CPT/HCPCS: A4218

== ENCOUNTER 2019-06-14 10:10 | Outpatient (CLI) | payer BC ==
[2019-06-14] MEDS ORDERED: Sodium Chloride 0.9% 15 ML NEB ONE (18:00)
== END 2019-06-14 10:11 | disposition home or self-care (01) ==
LOC: WCC 10:10
PROVIDERS: ATTEND Family Medicine
DX: T81.89XD Other complications of procedures, not elsewhere classified, subsequent encounter (principal)
CPT/HCPCS: 97605; A4218

== ENCOUNTER 2019-06-17 10:09 | Outpatient (CLI) | payer BC | END 2019-06-17 10:10 | disposition home or self-care (01) | LOC: WCC 10:09 | PROVIDERS: ATTEND Family Medicine | DX: T81.89XD Other complications of procedures, not elsewhere classified, subsequent encounter (principal) | CPT/HCPCS: 97605; A4218 ==

== ENCOUNTER 2019-06-20 13:46 | Outpatient (CLI) | payer BC ==
--- NOTE | 2019-06-20 12:11 | PRG ---
DATE OF SERVICE: 06/20/2019 HISTORY: Mr. Sukumar Vigil is a very pleasant 64-year-old gentleman who presents to the Wound Center for evaluation of a wound of the right foot subsequent to amputation of the 2nd, 3rd, 4th and 5th toes and metatarsals on 05/11/[address] Giovanni Sage. Negative pressure therapy was initiated intraoperatively and upon discharge from [facility], the patient was referred to the Wound Center for assistance with dressing changes of the wound VAC. During the patient's hospital stay, Mr. Vigil was seen in consultation by Dr. Roman Ramirez of Infectious Diseases. The patient has received IV antibiotics as per Infectious Diseases, specifically Rocephin 2 g IV daily. The patient has no other complaints today. He denies any fever or chills. PHYSICAL EXAMINATION: VITAL SIGNS: Temperature 97.4, pulse 85, respirations 16, and blood pressure 111/65. Accu-Chek 152. EXTREMITIES: A large wound of the right foot is present, which measures approximately 8.7 x 5.0 cm. The dimensions of the wound at the time of the patient's visit on 06/02/2019 were approximately 9.0 x 5.0 cm. Granulation tissue is present within the wound margins. No purulent drainage is associated with the wound. No cellulitis of the right foot is appreciated. No maceration of the skin of the periwound is noted. A dorsalis pedis pulse and posterior tibial pulse are both palpable on the right. No significant edema of the right foot is present on exam today. ASSESSMENT AND PLAN: 1. Right foot wound as described above. Negative pressure therapy will be continued with dressing changes of the wound VAC here in the Wound Center. As stated above, the patient has received antibiotics as per Dr. Roman Ramirez of Infectious Diseases. The patient will be seen by Dr. Sage in approximately 1 week. I will see Mr. Vigil again in 2 weeks. 2. Diabetes mellitus. The patient's Accu-Chek in clinic today is 152. The patient has been reminded that for optimal wound healing, his blood glucoses should remain below 150. 3. Hypertension. 4. Obstructive sleep apnea. Job ID: [id number]
== END 2019-06-20 13:47 | disposition home or self-care (01) ==
LOC: WCC 13:46
PROVIDERS: ATTEND Family Medicine
DX: T81.89XD Other complications of procedures, not elsewhere classified, subsequent encounter (principal); E11.9 Type 2 diabetes mellitus without complications; I10 Essential (primary) hypertension; G47.33 Obstructive sleep apnea (adult) (pediatric); Z89.421 Acquired absence of other right toe(s)
CPT/HCPCS: 36416; A4218

== ENCOUNTER 2019-06-23 13:26 | Outpatient (CLI) | payer BC | END 2019-06-23 13:27 | disposition home or self-care (01) | LOC: WCC 13:26 | PROVIDERS: ATTEND Family Medicine | DX: T81.89XD Other complications of procedures, not elsewhere classified, subsequent encounter (principal) | CPT/HCPCS: 97605; A4218 ==

== ENCOUNTER 2019-06-28 16:16 | Outpatient (CLI) | payer BC | END 2019-06-28 16:17 | disposition home or self-care (01) | LOC: WCC 16:16 | PROVIDERS: ATTEND Family Medicine | DX: S99.921A Unspecified injury of right foot, initial encounter (principal); E11.52 Type 2 diabetes mellitus with diabetic peripheral angiopathy with gangrene; I96 Gangrene, not elsewhere classified | CPT/HCPCS: 97605; A4218 ==

== ENCOUNTER 2019-07-04 11:17 | Outpatient (CLI) | payer BC ==
[2019-07-04] MEDS ORDERED: Sodium Chloride 0.9% 15 ML NEB ONE (15:00)
== END 2019-07-04 11:18 | disposition home or self-care (01) ==
LOC: WCC 11:17
PROVIDERS: ATTEND Family Medicine
DX: T81.89XD Other complications of procedures, not elsewhere classified, subsequent encounter (principal)
CPT/HCPCS: A4218

== ENCOUNTER 2019-07-04 11:38 | Inpatient (IN) | payer BC ==
[2019-07-04 12:56] LABS: #Basophils 0.1 thou/uL (0.0-0.2); #Eosinphils 0.2 thou/uL (0.0-0.7); #Lymphocytes 1.4 thou/uL (1.20-3.40); #Monocytes 0.7 thou/uL (0.11-0.59); #Neutrophils 6.6 thou/uL (1.40-6.50); %Basophils 0.6 % (0.0-1.0); %Lymphocytes 16.1 % (21.0-51.0); %Monocytes 7.4 % (0.0-10.0); %Neutrophils 73.9 % (42.0-75.0); Hemoglobin 12.6 g/dL (14.0-18.0); Mean Corpuscular HGB CONC 33.8 g/dL (32.0-36.0); Mean Corpuscular Hemoglobin 29.2 pg (27.0-31.0); Mean Corpuscular Volume 86.5 fL (78.0-98.0); Mean Platelet Volume 8.7 fL (7.4-10.4); Platelet Count 216 thou/uL (130-400); RBC Distribution Width 11.4 % (11.5-14.5); White Blood Cell (WBC) Count 8.9 thou/uL (4.8-10.8)
--- NOTE | 2019-07-04 13:16 | RAD ---
PORTABLE CHEST 1 VIEW: Date: 07/04/19 Time: 1236 hours HISTORY: Hypotension, dehydration. Comparison made with exam of 05/16/19. FINDINGS: The heart size is normal. The lungs are well expanded without focal areas of consolidation, pneumotho races, or pleural effusions. IMPRESSION: No radiographic evidence of acute cardiopulmonary process. POS: [facility]
[2019-07-04 13:23] LABS: ALT (SGPT) 11 U/L (8-55); AST (SGOT) 15 U/L (5-34); Alkaline Phosphatase 82 U/L (40-110); Anion Gap 12 mmol/L (10-20); BUN (Urea Nitrogen) 30 mg/dL (8.4-25.7); Bilirubin, Total 0.6 mg/dL (0.2-1.2); CK (CPK) 31 U/L (30-200); Calc. Creatinine Clearance 0 mL/min (70-130); Calcium 9.4 mg/dL (7.8-10.44); Carbon Dioxide 28 mmol/L (23-31); Chloride 101 mmol/L (98-107); Estimated GFR-MDRD 43; Glucose 115 mg/dL (80-115); Lipase 30 U/L (8-78); Potassium 5.2 mmol/L (3.5-5.1); Sodium 136 mmol/L (136-145)
[2019-07-04 15:43] LABS: Anion Gap 10 mmol/L (10-20); BUN (Urea Nitrogen) 29 mg/dL (8.4-25.7); Calc. Creatinine Clearance 0 mL/min (70-130); Calcium 8.6 mg/dL (7.8-10.44); Carbon Dioxide 27 mmol/L (23-31); Chloride 104 mmol/L (98-107); Estimated GFR-MDRD 52; Glucose 111 mg/dL (80-115); Potassium 5.2 mmol/L (3.5-5.1); Sodium 136 mmol/L (136-145)
[2019-07-04] MEDS ORDERED: Senokot S 8.6-50 MG TAB PO PRN (16:29)
[2019-07-04] MEDS ORDERED: Acetaminophen 325 MG TAB PO PRN (16:29)
[2019-07-04] MEDS ORDERED: Dextrose 5% in Water 1,000 ML IV PRN (16:32)
[2019-07-04] MEDS ORDERED: Dextrose 50% Abboject 50 ML SYRINGE SLOW IVP PRN (16:32)
[2019-07-04] MEDS: Sodium Chloride 0.9% 1,000 ML IV SCH (20:45)
[2019-07-04] MEDS: Atorvastatin Calcium 10 MG TAB PO SCH (20:51)
[2019-07-04] MEDS ORDERED: Gabapentin 300 MG CAP PO SCH (21:00)
--- NOTE | 2019-07-05 02:42 | HP ---
CHIEF COMPLAINT: Dizziness. HISTORY OF PRESENT ILLNESS: The patient is a 64-year-old male with a past medical history of diabetes, who presents to the hospital with complaints of dizziness. The patient states that he was at the Wound Clinic today and felt a kind of woozy and dizzy. At this time, blood pressure was checked, which appeared to be very low. He denies any fevers or chills, any nausea, vomiting, or diarrhea. The patient denies taking new medications. He states that according to the Wound Care doctor, his wound appeared to be well and it did not appear to be infected. Also, the patient states that he has been eating and drinking as usual. However, he has lost about 30 pounds since the past 6 months. The patient states that it is not intentional. He just does not have much of an appetite. The patient is on lisinopril 5 mg and that is all he has been taking for his blood pressure. The patient's blood pressure was low in the systolics in the in the 70s to 80s to 90s. He never had any syncopal episode. PAST MEDICAL HISTORY: 1. He has a history of diabetes. 2. History of diabetic foot ulcer. PAST SURGICAL HISTORY: He has had a meniscal tear repair and also he has had amputation of his right toes. He has had amputation of toes and metatarsals 2, 3, 4 and 5 of the right foot with debridement. ALLERGIES: NO KNOWN DRUG ALLERGIES. SOCIAL HISTORY: He is . He is nonsmoker. Does not drink alcohol. No drug use. He is a full code. FAMILY HISTORY: Significant for diabetes in maternal grandfather as well as heart disease. MEDICATIONS: I did look through his list. He takes lisinopril 5 mg daily. He is not on any metformin or glimepiride. He has been changed to another insulin. He also is on aspirin. REVIEW OF SYSTEMS: All negative except for the ones mentioned above in the HPI. PHYSICAL EXAMINATION: VITAL SIGNS: Are as of the following; his temperature is 98.8, pulse 89, blood pressure 108/60, respiratory rate 18, oxygen saturation 99% on room air. GENERAL: He is awake, alert, and oriented x3. Does not appear in distress. HEENT: Normocephalic, atraumatic. No lymphadenopathy noted. Pupils equal and reactive to light. CV: S1 and S2 present. No murmurs, rubs, or gallops. ABDOMEN: Soft and nontender. Bowel sounds are present x2. EXTREMITIES: No edema. Pedal pulses are present x2. He does have a wound VAC to his right foot. No erythema noted. NEUROVASCULAR: No focal deficits noted. SKIN: No cuts, lesions, or bruises noted except for the right foot, which is on a wound VAC. LABORATORY RESULTS: WBC is 8.9, hemoglobin of 12.6, hematocrit of 37.2, his platelets are 216. He does not have any bandemia. Chemistry; sodium of 136, potassium of 5.2. BUN of 30, creatinine of 1.62. His lactic acid was 1.5. He also had a chest x-ray, which did not show any acute abnormalities. ASSESSMENT AND PLAN: The patient is a very pleasant 64-year-old male, who presents to the hospital with dizziness. 1. Hypotension, unclear etiology. The patient is only on 5 mg of lisinopril. We will hold that. I will check orthostatics. I will also check a TSH and a cortisol level in the morning. He has never really had an echocardiogram. I will get another echocardiogram. His EKG did not show anything significant. He has not been having any chest pain or shortness of breath. However, he has lost a significant amount of weight. 2. Hyperkalemia. It is mild. This is most likely secondary to his lisinopril. We will continue to hold. 3. Acute kidney injury. We will continue IV hydration. He did get a liter in the ER, which did really significantly improve his blood pressure. We will continue his fluids at 50 mL an hour and check BMP in the morning. 4. Deep venous thrombosis prophylaxis. We will put the patient on some SCDs. Job ID: [id number]
[2019-07-05 04:52] LABS: #Eosinphils 0.3 thou/uL (0.0-0.7); #Lymphocytes 1.6 thou/uL (1.20-3.40); #Monocytes 0.6 thou/uL (0.11-0.59); #Neutrophils 3.6 thou/uL (1.40-6.50); %Basophils 0.7 % (0.0-1.0); %Eosinophils 4.6 % (0.0-10.0); %Lymphocytes 27.1 % (21.0-51.0); %Monocytes 9.2 % (0.0-10.0); %Neutrophils 58.5 % (42.0-75.0); Hemoglobin 11.7 g/dL (14.0-18.0); Mean Corpuscular HGB CONC 34.8 g/dL (32.0-36.0); Mean Corpuscular Hemoglobin 29.7 pg (27.0-31.0); Mean Corpuscular Volume 85.2 fL (78.0-98.0); Mean Platelet Volume 8.3 fL (7.4-10.4); Platelet Count 177 thou/uL (130-400); RBC Distribution Width 11.2 % (11.5-14.5); Red Blood Cell (RBC) Count 3.95 mill/uL (4.70-6.10); White Blood Cell (WBC) Count 6.1 thou/uL (4.8-10.8)
[2019-07-05 05:08] LABS: Anion Gap 9 mmol/L (10-20); BUN (Urea Nitrogen) 25 mg/dL (8.4-25.7); Calc. Creatinine Clearance 78 mL/min (70-130); Carbon Dioxide 28 mmol/L (23-31); Chloride 107 mmol/L (98-107); Estimated GFR-MDRD 60; Glucose 100 mg/dL (80-115); Potassium 5.3 mmol/L (3.5-5.1); Sodium 139 mmol/L (136-145)
[2019-07-05] MEDS ORDERED: metFORMIN 500 MG TAB PO SCH (08:00)
[2019-07-05] MEDS ORDERED: Non-Formulary Item 1 EACH (Insulin Glargine,Hum.Rec.Anlog [Toujeo Solostar] 10 UNITS) SC SCH (09:00)
[2019-07-05] MEDS ORDERED: Aspirin 81 mg Enteric Coated Tablet PO SCH (09:00)
[2019-07-05] MEDS: Insulin Glargine 10 UNITS in Pre-Filled Syringe 1 EACH SC SCH (09:27)
[2019-07-05] MEDS: Saccharomyces boulardii 250 MG CAP PO SCH (09:27)
[2019-07-05] MEDS: Sodium Chloride 0.9% 1,000 ML IV SCH (13:21)
--- NOTE | 2019-07-05 14:22 | PRG ---
DATE OF SERVICE: 07/05/2019 SUBJECTIVE: The patient seen at bedside, feels fine. The patient presented yesterday with dizziness; however, denies any complaint today. Denies any chest pain, nausea, vomiting, diarrhea. The patient able to go to the restroom without any problems. Admitted with MATY and dehydration and hypertension. LABORATORY DATA: CBC unremarkable except hemoglobin 11.7, white blood cells 6.1, platelet 177. D-dimer 0.38. BMP unremarkable except potassium 5.3, creatinine 1.22. Cortisol 12.90, TSH 0.63, blood glucose 155. Influenza B antigen negative. PHYSICAL EXAMINATION: VITAL SIGNS: Temperature 99, pulse 84, respirations 16, oxygen saturation 99%. Blood pressure 131/80. GENERAL: The patient lying in bed comfortably, not in distress. HEENT: Conjunctivae normal. Oral mucosa moist. NECK: Supple. No JVD. No lymphadenopathy. CHEST: Normal vesicular breathing. HEART: Sounds normal. ABDOMEN: Soft, benign, nontender. No visceromegaly. EXTREMITIES: Wound on right foot. IMPRESSION: 1. Episode of hypertension and dizziness, most likely related to dehydration as the patient had low blood pressure. Continue fluids. Blood pressure is stable. Cortisol, TSH level is normal. Followup echocardiogram. Troponin is negative and tele monitor did not show any significant findings. Currently, the patient blood pressure is stable. We will continue to monitor blood pressure. 2. Acute kidney injury, most likely related to dehydration. Hold PHONG inhibitor and continue fluids. Creatinine is improving. 3. Mild hyperkalemia. Will give Kayexalate 1 dose. Continue fluids and monitor BMP in the morning. 4. Chronic right foot wound. The patient being followed up outpatient with wound care and visited wound care clinic yesterday and as per wound care physician, the patient's wound is improving. We will continue recommend wound care as an outpatient. 5. Diabetes mellitus. Continue monitoring blood sugar. PLAN: Possible discharge home in the morning. If the patient's blood pressure is stable, most likely we will hold lisinopril on discharge and recommended follow up outpatient with the PCP in a week. Job ID: [id number]
[2019-07-05 15:45] VITALS: BMI 26.8
[2019-07-05] MEDS: Atorvastatin Calcium 10 MG TAB PO SCH (20:30)
[2019-07-05] MEDS: Loratadine 10 MG TAB PO SCH (20:33)
[2019-07-06 05:05] LABS: #Eosinphils 0.3 thou/uL (0.0-0.7); #Lymphocytes 1.8 thou/uL (1.20-3.40); #Monocytes 0.4 thou/uL (0.11-0.59); #Neutrophils 2.9 thou/uL (1.40-6.50); %Basophils 0.4 % (0.0-1.0); %Lymphocytes 33.5 % (21.0-51.0); %Monocytes 8.1 % (0.0-10.0); Hemoglobin 11.9 g/dL (14.0-18.0); Mean Corpuscular HGB CONC 35.1 g/dL (32.0-36.0); Mean Corpuscular Hemoglobin 30.2 pg (27.0-31.0); Mean Platelet Volume 8.8 fL (7.4-10.4); Platelet Count 170 thou/uL (130-400); RBC Distribution Width 11.3 % (11.5-14.5); Red Blood Cell (RBC) Count 3.93 mill/uL (4.70-6.10); White Blood Cell (WBC) Count 5.4 thou/uL (4.8-10.8)
[2019-07-06 05:20] LABS: Anion Gap 10 mmol/L (10-20); BUN (Urea Nitrogen) 18 mg/dL (8.4-25.7); Calc. Creatinine Clearance 82 mL/min (70-130); Calcium 9.2 mg/dL (7.8-10.44); Carbon Dioxide 30 mmol/L (23-31); Chloride 105 mmol/L (98-107); Estimated GFR-MDRD 65; Glucose 118 mg/dL (80-115); Potassium 4.7 mmol/L (3.5-5.1); Sodium 140 mmol/L (136-145)
[2019-07-06] MEDS: Insulin Glargine 10 UNITS in Pre-Filled Syringe 1 EACH SC SCH (09:25)
[2019-07-06] MEDS: Saccharomyces boulardii 250 MG CAP PO SCH (09:25)
[2019-07-06] MEDS: HumaLOG 300 UNITS/3 ML VIAL SC PRN (12:58)
[2019-07-06] MEDS ORDERED: Sodium Chloride 0.9% 500 ML IV SCH (14:00)
--- NOTE | 2019-07-06 15:23 | CON ---
DATE OF CONSULTATION: 07/06/2019 REASON FOR CONSULTATION: Cardiomyopathy. HISTORY OF PRESENT ILLNESS: Mr. Vigil is a 64-year-old gentleman, who has not been seen or evaluated by Cardiology in the past. He has a history of diabetes mellitus over the last 5 years. He recently presented with dizziness and lightheadedness. He was seen and evaluated in the Wound Care Clinic after stepping on a nail several months ago. He underwent amputation of his toes. He was found to be fairly hypotensive with orthostatics. His blood pressure has subsequently improved, but continues to have orthostatic hypotension. No chest pain or pressure noted. He has no previous history of underlying cardiomyopathy. PAST MEDICAL HISTORY: Diabetes mellitus, diabetic foot ulcer status post amputation of his toes on the right. ALLERGIES: NONE. SOCIAL HISTORY: He is currently . No current tobacco or alcohol use. FAMILY HISTORY: Negative for CAD. HOME MEDICATIONS: Include lisinopril. REVIEW OF SYSTEMS: A 10-point review of systems is reviewed as above, otherwise negative. PHYSICAL EXAMINATION: GENERAL: Patient is a pleasant male, who is in no acute distress. The patient appears their stated age. VITAL SIGNS: Blood pressure 132/78, pulse 76, temperature afebrile. NEUROLOGIC: The patient is alert and oriented x3 with no focal neurologic deficits. HEENT: Sclerae without icterus. Mouth has moist mucous membranes with normal pallor. NECK: No JVD. Carotid upstroke brisk. No bruits bilaterally. LUNGS: Clear to auscultation with unlabored respirations. BACK: No scoliosis or kyphosis. CARDIAC: Regular rate and rhythm with normal S1 and S2. No S3 or S4 noted. No significant rubs, murmurs, thrills, or gallops noted throughout the precordium. PMI is not displaced. There is no parasternal heave. ABDOMEN: Soft, nontender, nondistended. No peritoneal signs present. No hepatosplenomegaly. No abnormal striae. EXTREMITIES: 2+ femoral and 2+ dorsalis pedis pulses. No cyanosis, clubbing, or edema. SKIN: No gross abnormalities. PERTINENT LABORATORY DATA: Hemoglobin 11.9. Creatinine 1.13. Troponin negative. Echo with doppler dated 07/05/2019, LVEF 20% to 25% with mild MR, TR. IMPRESSION: 1. New onset cardiomyopathy. 2. Diabetes mellitus. 3. Orthostatic hypotension. RECOMMENDATIONS: The patient has no previous history of underlying cardiomyopathy. This is a new finding. This is likely related to his underlying diabetes. Based on his diabetic foot ulceration, he likely had diabetes more than 5 years. I discussed proceeding with coronary angiography versus a noninvasive stress study. I did recommend coronary angiography. The patient is DNR and has concerns about rescinding the DNR for coronary angiography. I would therefore proceed with a noninvasive stress study in a.m. Once his blood pressure is stabilized, we would add low-dose Coreg in addition to PHONG inhibitor therapy. We would also recommend LifeVest if the patient is amenable. Job ID: [id number]
[2019-07-06 16:52] LABS: Bilirubin Negative (Negative); Blood, Urine Negative (Negative); Clarity Clear (Clear); Glucose, Urine (Dipstick) Normal (Negative); Leukocyte Negative Leu/uL (Negative); Nitrite Negative (Negative); Protein, Urine (Dipstick) Negative (Neg-Trace); Urobilinogen Normal mg/dL (Less than 2)
--- NOTE | 2019-07-06 18:39 | PDOC.HOSPP ---
- Subjective Encounter Date: 07/06/19 Encounter Time: 09:00 Subjective: Chief complaint: Dizziness Subjective: Patient feeling better from dizziness perspective, however got presyncopal today while ambulating. Orthostatics very positive. Eating and drinking well. Echo reviewed, new consult called to cardiology, appreciate evaluation. Wound care consulted for scheduled wound vac change. - Objective Vital Signs & Weight: Vital Signs (12 hours) Temp Pulse Resp BP BP BP BP 07/06/19 15:30 98.7 F 80 20 121/58 L 114/61 128/67 07/06/19 11:02 76 18 121/69 94/52 L 132/78 07/06/19 08:11 97.9 F 88 16 103/58 L Pulse Ox 07/06/19 15:30 99 07/06/19 11:02 98 07/06/19 08:11 96 Weight Admit Weight 197 lb 11.2 oz Weight 194 lb 6.4 oz I&O: 07/05/19 07/06/19 07/07/19 06:59 06:59 06:59 Intake Total 1218 1220 Output Total 1000 Balance 218 1220 Result Diagrams: 07/06/19 04:37 07/06/19 04:37 Additional Labs: Accuchecks 07/06/19 07/06/19 07/05/19 16:34 11:05 20:38 POC Glucose 106 165 H 145 H Hospitalist ROS - Medication Medications: Active Medications Generic Name Dose Route Start Last Admin Trade Name Freq PRN Reason Stop Dose Admin Atorvastatin Calcium 10 mg 07/04/19 21:00 07/05/19 20:30 Lipitor PO Not Given HS WAYNE Insulin Glargine 10 units/ 0.1 mls @ 0 mls/hr 07/05/19 09:00 07/06/19 09:25 Miscellaneous Medication SC 0.1 mls QAM WAYNE Administration Insulin Human Lispro 0 units 07/04/19 16:32 07/06/19 12:58 Humalog SC 2 unit .MILD SLIDING SCALE PRN Administration Mild Correctional Scale Loratadine 10 mg 07/05/19 21:00 07/05/19 20:33 Claritin PO 10 mg HS WAYNE Administration Saccharomyces Boulardii 250 mg 07/05/19 09:00 07/06/19 09:25 Florastor PO 250 mg DAILY WAYNE Administration - Exam General Appearance: NAD, awake alert Eye: PERRL, anicteric sclera ENT: normocephalic atraumatic, moist mucosa Neck: supple, no JVD Heart: RRR, no murmur, no gallops, no rubs Respiratory: CTAB, no wheezes, no rales, no ronchi Gastrointestinal: soft, non-tender, non-distended, normal bowel sounds Extremities: no cyanosis, no clubbing, no edema Extremities - other findings: R foot wound w/ wound vac Skin: no lesions, no rashes Skin - other findings: R foot wound vac Neurological: cranial nerve grossly intact, normal sensation to touch, no weakness, no focal deficits Musculoskeletal: normal tone, normal strength Psychiatric: normal affect, normal behavior, A&O x 3 Hosp A/P - Plan 64 year old male being treated for: # symptomatic orthostatic hypotension - OSV positive today with SBP dropping from 130s to 90s on standing. No obvious infections, no inciting meds I can see. - echo report reviewed w/ EF 25%, consult called to cardiology - 500cc bolus and recheck orthostatics - continue telemetry - monitor off of abx, survey for infection # MATY - likely prerenal, continue to hydrate and recheck OSV, CHF noted this admission so will hydrate incrementally to avoid overload # systolic CHF - not in exacerbation but may be affecting the chronotropic responce and worsening symptoms - new consult called to cardiology, appreciate evaluation, had a negative stress test a few years ago he reports # hyperkalemia - resovled, likely related to MATY and dehydration # chronic R foot wound - wound care nursing consulted for wound vac change and evaluation of wound base, sees outpatient wound care clinic normally # DM - continue SSI
[2019-07-06] MEDS: Loratadine 10 MG TAB PO SCH (20:19)
[2019-07-06] MEDS: Atorvastatin Calcium 10 MG TAB PO SCH (22:27)
[2019-07-07 05:26] LABS: Anion Gap 9 mmol/L (10-20); BUN (Urea Nitrogen) 19 mg/dL (8.4-25.7); Calc. Creatinine Clearance 78 mL/min (70-130); Calcium 8.8 mg/dL (7.8-10.44); Carbon Dioxide 28 mmol/L (23-31); Chloride 107 mmol/L (98-107); Estimated GFR-MDRD 61; Glucose 148 mg/dL (80-115); Potassium 4.3 mmol/L (3.5-5.1); Sodium 140 mmol/L (136-145)
[2019-07-07 05:32] LABS: #Eosinphils 0.3 thou/uL (0.0-0.7); #Lymphocytes 1.9 thou/uL (1.20-3.40); #Monocytes 0.5 thou/uL (0.11-0.59); #Neutrophils 3.7 thou/uL (1.40-6.50); %Basophils 0.5 % (0.0-1.0); %Eosinophils 4.5 % (0.0-10.0); %Lymphocytes 30.2 % (21.0-51.0); %Monocytes 7.6 % (0.0-10.0); %Neutrophils 57.2 % (42.0-75.0); Hemoglobin 11.6 g/dL (14.0-18.0); Mean Corpuscular HGB CONC 34.7 g/dL (32.0-36.0); Mean Corpuscular Hemoglobin 29.8 pg (27.0-31.0); Mean Corpuscular Volume 85.7 fL (78.0-98.0); Mean Platelet Volume 8.8 fL (7.4-10.4); Platelet Count 184 thou/uL (130-400); RBC Distribution Width 11.2 % (11.5-14.5); Red Blood Cell (RBC) Count 3.91 mill/uL (4.70-6.10); White Blood Cell (WBC) Count 6.5 thou/uL (4.8-10.8)
[2019-07-07] MEDS: Insulin Glargine 10 UNITS in Pre-Filled Syringe 1 EACH SC SCH (08:07)
[2019-07-07] MEDS: Saccharomyces boulardii 250 MG CAP PO SCH (10:13)
--- NOTE | 2019-07-07 13:05 | NM ---
NUCLEAR MEDICINE CARDIAC STRESS WITH EF AND WALL MOTION: HISTORY: Cardiomyopathy. COMPARISON: None. TECHNIQUE: The patient was administered 10.9 mm of technetium 99 sestamibi for rest imaging and 32.4 mCi of tech netium 9M sestamibi for stress imaging. Cardiac gating was performed. FINDINGS: No evidence of reversibility or fixed defect. TID is 1.01. End-diastolic volume is 193 mL. End systolic volume is 127 mL. Cardiac gating: Global hypokinesis. 34% ejection fraction. Impression: 1. No reversibility or fixed defect. 2. Global hypokinesis. 34% ejection fraction. Transcribed Date/Time: 07/07/2019 1:20 PM
[2019-07-07] MEDS ORDERED: Regadenoson 0.4 MG/5 ML SYRINGE ONE (15:23)
--- NOTE | 2019-07-07 18:32 | PDOC.HOSPP ---
- Subjective Encounter Date: 07/07/19 Encounter Time: 14:30 Subjective: Chief complaint: Presyncope Subjective Patient in bed, no further dizziness or near syncope, completed stress test and results reviewed later and not yet communcated to patient. EF 34%, no reversable insults. A bit of pedal edema today after bolus for positive orthostatics. No chest pain or shortness of breath. - Objective Vital Signs & Weight: Vital Signs (12 hours) Temp Pulse Resp BP BP BP BP 07/07/19 17:10 98.3 F 84 18 115/66 07/07/19 17:00 07/07/19 15:15 97.4 F L 86 20 121/66 07/07/19 11:20 98.3 F 81 18 152/77 H 07/07/19 07:08 98.9 F 75 18 118/71 143/82 H 110/67 Pulse Ox 07/07/19 17:10 99 07/07/19 17:00 99 07/07/19 15:15 100 07/07/19 11:20 99 07/07/19 07:08 95 Weight Admit Weight 197 lb 11.2 oz Weight 195 lb I&O: 07/06/19 07/07/19 07/08/19 06:59 06:59 06:59 Intake Total 1220 1340 Output Total 1125 Balance 1220 215 Result Diagrams: 07/07/19 04:49 07/07/19 04:49 Additional Labs: Accuchecks 07/07/19 07/07/19 07/07/19 16:39 11:25 04:52 POC Glucose 183 H 131 H 152 H 07/06/19 20:39 POC Glucose 174 H Hospitalist ROS - Medication Medications: Active Medications Generic Name Dose Route Start Last Admin Trade Name Freq PRN Reason Stop Dose Admin Atorvastatin Calcium 10 mg 07/04/19 21:00 07/06/19 22:27 Lipitor PO Not Given HS WAYNE Insulin Glargine 10 units/ 0.1 mls @ 0 mls/hr 07/05/19 09:00 07/07/19 08:07 Miscellaneous Medication SC Not Given QAM [facility] Insulin Human Lispro 0 units 07/04/19 16:32 07/06/19 12:58 Humalog SC 2 unit .MILD SLIDING SCALE PRN Administration Mild Correctional Scale Loratadine 10 mg 07/05/19 21:00 07/06/19 20:19 Claritin PO 10 mg HS WAYNE Administration Saccharomyces Sanchezi 250 mg 07/05/19 09:00 07/06/19 09:25 Florastor PO 250 mg DAILY WAYNE Administration - Exam General Appearance: NAD, awake alert Eye: PERRL, anicteric sclera ENT: normocephalic atraumatic, moist mucosa Neck: supple, symmetric, no JVD Heart: RRR, no murmur, no gallops, no rubs Respiratory: CTAB, no wheezes, no rales, no ronchi Gastrointestinal: soft, non-tender, non-distended, normal bowel sounds Extremities: no cyanosis, no clubbing, 1+ LE edema Extremities - other findings: RLE wound vac Skin: no lesions, no rashes Neurological: cranial nerve grossly intact, normal sensation to touch, no weakness, no focal deficits Musculoskeletal: normal tone, normal strength Psychiatric: normal affect, normal behavior, A&O x 3 Hosp A/P - Plan 64 year old male being treated for: # symptomatic orthostatic hypotension - OSV positive this admission, given 500cc bolus and recheck and still positive but slightly less so, could not further bolus due to development of 1+ pedal edema. No obvious infections, no inciting meds I can see. 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 # MATY - likely prerenal, continue to hydrate and recheck OSV, CHF noted this admission so will hydrate incrementally to avoid overload # acute systolic CHF - not in exacerbation but may be affecting the chronotropic responce and worsening symptoms - new consult called to cardiology, appreciate evaluation, stress test performed with no reversible ischemia, 34% EF by stress test calculations # hyperkalemia - resovled, likely related to MATY and dehydration # chronic R foot wound - wound care nursing consulted for wound vac change and evaluation of wound base, sees outpatient wound care clinic normally # DM - continue SSI Plan - check orthostatic vitals tomorrow AM, follow up cardiology 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
[2019-07-07] MEDS: Loratadine 10 MG TAB PO SCH (21:01)
[2019-07-07] MEDS: Atorvastatin Calcium 10 MG TAB PO SCH (21:01)
[2019-07-08 04:57] LABS: #Eosinphils 0.3 thou/uL (0.0-0.7); #Lymphocytes 1.7 thou/uL (1.20-3.40); #Monocytes 0.5 thou/uL (0.11-0.59); #Neutrophils 3.6 thou/uL (1.40-6.50); %Basophils 0.6 % (0.0-1.0); %Eosinophils 4.8 % (0.0-10.0); %Lymphocytes 28.4 % (21.0-51.0); %Neutrophils 58.2 % (42.0-75.0); Hemoglobin 11.1 g/dL (14.0-18.0); Mean Corpuscular Hemoglobin 28.9 pg (27.0-31.0); Mean Corpuscular Volume 85.2 fL (78.0-98.0); Mean Platelet Volume 8.8 fL (7.4-10.4); Platelet Count 180 thou/uL (130-400); RBC Distribution Width 11.2 % (11.5-14.5); Red Blood Cell (RBC) Count 3.85 mill/uL (4.70-6.10); White Blood Cell (WBC) Count 6.1 thou/uL (4.8-10.8)
[2019-07-08 05:10] LABS: Anion Gap 8 mmol/L (10-20); BUN (Urea Nitrogen) 16 mg/dL (8.4-25.7); Calc. Creatinine Clearance 83 mL/min (70-130); Calcium 8.7 mg/dL (7.8-10.44); Carbon Dioxide 28 mmol/L (23-31); Chloride 107 mmol/L (98-107); Estimated GFR-MDRD 65; Glucose 187 mg/dL (80-115); Sodium 139 mmol/L (136-145)
[2019-07-08] MEDS ORDERED: Heparin (Artline) 1,000 ML ONE (07:03)
[2019-07-08] MEDS ORDERED: Heparin 10,000 UNITS/1 ML VIAL ONE (07:03)
[2019-07-08] MEDS ORDERED: Lidocaine 1% (PF) 30 ML VIAL ONE (07:03)
[2019-07-08] MEDS ORDERED: Communication Order-Pharmacy FS SCH (07:30)
[2019-07-08] MEDS ORDERED: Sodium Chloride 0.9% 1,000 ML IV SCH ×2 (07:30→08:00)
[2019-07-08] MEDS ORDERED: Fentanyl 100 MCG/2 ML VIAL ONE (07:38)
[2019-07-08] MEDS ORDERED: Midazolam HCl 2 mg/2 ml Vial ONE (07:38)
--- NOTE | 2019-07-08 07:40 | PRG ---
DATE OF SERVICE: 07/08/2019 Mr. Vigil recently underwent a noninvasive stress study. There was no significant ischemia with LVEF estimated at 34%. I discussed the findings to Mr. Vigil in detail. Given his history of diabetes and a recent slowly healing ulcer, I did recommend coronary angiography and possible PCI. I discussed procedure in full detail to Mr. Vigil. Risks included, not limited to the following: The risks of the procedure were also discussed. The risks of the procedure include but are not limited to the following: , stroke, NM, need for emergency surgery, loss of limb, bleeding, and infection, as well as a reaction to the dye causing kidney failure and needing long-term dialysis. I also discussed the risks of PCI to include all of the above including coronary dissection and perforation in addition to acute stent thrombosis and restenosis. All questions about the procedure were answered. Given the above, the patient agreed to proceed with coronary angiography and possible PCI. All questions were answered. He had several questions about how to proceed. After much discussion, he decided to proceed with coronary angiography. I also discussed drug-coated versus [id number] stent placement. There were no contraindications, we will proceed if needed. The patient will rescind the DNR for the procedure. Job ID: [id number]
[2019-07-08] MEDS ORDERED: Nitroglycerin 0.4 MG TAB (25 Tab Bottle) SL PRN (07:53)
[2019-07-08] MEDS ORDERED: Acetaminophen/Codeine 30-300mg Tablet PO PRN ×2 (07:53)
[2019-07-08] MEDS ORDERED: Sodium Chloride 0.9% 200 ML IV PRN (07:53)
[2019-07-08] MEDS: Saccharomyces boulardii 250 MG CAP PO SCH (08:49)
[2019-07-08] MEDS: Midodrine HCl 5 MG TAB PO SCH ×2 (08:49→17:54)
[2019-07-08] MEDS: Insulin Glargine 10 UNITS in Pre-Filled Syringe 1 EACH SC SCH (08:51)
[2019-07-08] MEDS ORDERED: Iopamidol 370 76% 100 ML VIAL ONE (11:28)
[2019-07-08] MEDS: HumaLOG 300 UNITS/3 ML VIAL SC PRN (12:19)
[2019-07-08] MEDS ORDERED: Cosyntropin 250 MCG VIAL SLOW IVP SCH (15:00)
--- NOTE | 2019-07-08 15:04 | PDOC.HOSPP ---
- Subjective Encounter Date: 07/08/19 Encounter Time: 15:02 Subjective: Chief complaint: dizziness, presyncope Subjective: patient in bed, pleasant, no chest pain or shortness of breath, on bedrest after heart catheterization. Orthostatics checked and positive later in day, discussed with Dr Frazier - Objective Vital Signs & Weight: Vital Signs (12 hours) Temp Pulse Resp BP BP BP BP 07/08/19 13:00 77 140/72 103/61 139/83 07/08/19 11:12 98.3 F 80 18 135/94 H 07/08/19 08:15 98 F 62 18 136/80 07/08/19 03:04 97.6 F 61 16 130/74 Pulse Ox 07/08/19 13:00 07/08/19 11:12 97 07/08/19 08:15 98 07/08/19 03:04 98 Weight Admit Weight 197 lb 11.2 oz Weight 195 lb 12.8 oz I&O: 07/07/19 07/08/19 07/09/19 06:59 06:59 06:59 Intake Total 1340 240 Output Total 1125 Balance 215 240 Result Diagrams: 07/08/19 04:31 07/08/19 04:31 Additional Labs: Accuchecks 07/08/19 07/08/19 07/07/19 10:47 05:23 20:35 POC Glucose 208 H 214 H 172 H 07/07/19 16:39 POC Glucose 183 H Hospitalist ROS - Medication Medications: Active Medications Generic Name Dose Route Start Last Admin Trade Name Freq PRN Reason Stop Dose Admin Atorvastatin Calcium 10 mg 07/04/19 21:00 07/07/19 21:01 Lipitor PO 10 mg HS WAYNE Administration Insulin Glargine 10 units/ 0.1 mls @ 0 mls/hr 07/05/19 09:00 07/08/19 08:51 Miscellaneous Medication SC 0.1 mls QAM WAYNE Administration Insulin Human Lispro 0 units 07/04/19 16:32 07/08/19 12:19 Humalog SC 3 unit .MILD SLIDING SCALE PRN Administration Mild Correctional Scale Loratadine 10 mg 07/05/19 21:00 07/07/19 21:01 Claritin PO 10 mg HS WAYNE Administration Midodrine 2.5 mg 07/08/19 08:00 07/08/19 08:49 Proamatine PO 2.5 mg BID-WM WAYNE Administration Saccharomyces Robbydii 250 mg 07/05/19 09:00 07/08/19 08:49 Florastor PO 250 mg DAILY WAYNE Administration Sodium Chloride 10 ml 07/08/19 09:00 07/08/19 08:49 Flush - Normal Saline IVF 10 ml Q12HR WAYNE Administration - Exam General Appearance: NAD, awake alert Eye: PERRL, anicteric sclera ENT: normocephalic atraumatic, no oropharyngeal lesions, moist mucosa Neck: supple, symmetric, no JVD Heart: RRR, no murmur, no gallops, no rubs Respiratory: CTAB, no wheezes, no rales, no ronchi Gastrointestinal: soft, non-tender, non-distended, normal bowel sounds Extremities: no cyanosis, no clubbing, 1+ LE edema Skin: no lesions, no rashes Neurological: cranial nerve grossly intact, normal sensation to touch, no weakness, no focal deficits Musculoskeletal: normal tone, normal strength Hosp A/P - Plan 64 year old male being treated for: # symptomatic orthostatic hypotension - OSV positive this admission, did not improve with IVF - echo report reviewed w/ EF 25%, appreciate cardiology, patient went for heart cath and report was - hold further boluses for fear of inducing CHF exacerbation, continue telemetry , monitor off of antibiotics - check b12 level and cosyntropin stim test, start empiric b12 and florinef and continue midodrine, check OSV daily # MATY - likely prerenal, improved with inital hydration # acute systolic CHF - new finding, s/p heart cath and stress test, nonischemic in nature, hypotension may limit ability to go on beta david or osmani inhibitor in the short term # hyperkalemia - resovled, likely related to MATY and dehydration # chronic R foot wound - wound care nursing consulted for wound vac change and evaluation of wound base, sees outpatient wound care clinic normally # DM - continue SSI Plan - check b12 level and cosyntropin stim test, start empiric b12 and florinef and continue midodrine, check OSV daily
[2019-07-08] MEDS: Atorvastatin Calcium 10 MG TAB PO SCH (20:44)
[2019-07-08] MEDS: Loratadine 10 MG TAB PO SCH (20:44)
[2019-07-08] MEDS ORDERED: Fludrocortisone Acetate 0.1 MG TAB PO SCH (21:00)
[2019-07-09] MEDS ORDERED: Cyanocobalamin (Vitamin B-12) 1,000 MCG TAB PO SCH (09:00)
[2019-07-09] MEDS: Insulin Glargine 10 UNITS in Pre-Filled Syringe 1 EACH SC SCH (09:01)
[2019-07-09] MEDS: Midodrine HCl 5 MG TAB PO SCH (09:01)
[2019-07-09] MEDS: Saccharomyces boulardii 250 MG CAP PO SCH (09:02)
[2019-07-09] MEDS: HumaLOG 300 UNITS/3 ML VIAL SC PRN (11:09)
[2019-07-09] MEDS ORDERED: Midodrine HCl 5 MG TAB PO SCH (15:00)
[2019-07-09 15:14] VITALS: BP 129/69; TEMP 98.1
--- NOTE | 2019-07-09 15:57 | PDOC.CPN ---
- Subjective Date: 07/09/19 Time: 16:02 Interval history: The pt seen and examined. No overnight events. No cardiac complaints. - Objective Allergies/Adverse Reactions: Allergies Allergy/AdvReac Type Severity Reaction Status Date / Time mushroom Allergy Severe Verified 07/04/19 20:24 Visit Medications: Current Medications Acetaminophen (Tylenol) 650 mg PO Q4H PRN PRN Reason: Headache/Fever/Mild Pain (1-3) Acetaminophen/Codeine Phosphate (Tylenol #3) 1 tab PO Q4H PRN PRN Reason: Mild Pain (1-3) Acetaminophen/Codeine Phosphate (Tylenol #3) 2 tab PO Q4H PRN PRN Reason: Moderate Pain (4-6) Atorvastatin Calcium (Lipitor) 10 mg PO [facility] Last Admin: 07/08/19 20:44 Dose: 10 mg Dextrose/Water (Dextrose 50%) 25 gm SLOW IVP PRN PRN PRN Reason: Hypoglycemia Fludrocortisone Acetate (Florinef) 0.1 mg PO [facility] Last Admin: 07/08/19 20:44 Dose: 0.1 mg Glucagon (Glucagon) 1 mg IM PRN PRN PRN Reason: Hypoglycemia Dextrose/Water (D5w) 1,000 mls @ 0 mls/hr IV .Q0M PRN PRN Reason: Hypoglycemia Insulin Glargine 10 units/ (Miscellaneous Medication) 0.1 mls @ 0 mls/hr SC QAM COUNT INCLUDES [facility] Last Admin: 07/09/19 09:01 Dose: 0.1 mls Insulin Human Lispro (Humalog) 0 units SC .MILD SLIDING SCALE PRN PRN Reason: Mild Correctional Scale Last Admin: 07/09/19 11:09 Dose: 2 unit Loratadine (Claritin) 10 mg PO HS COUNT INCLUDES [facility] Last Admin: 07/08/19 20:44 Dose: 10 mg Midodrine (Proamatine) 2.5 mg PO TID COUNT INCLUDES [facility] Last Admin: 07/09/19 15:10 Dose: 2.5 mg Nitroglycerin (Nitrostat) 0.4 mg SL Q5MIN PRN PRN Reason: Chest Pain Saccharomyces Boulardii (Florastor) 250 mg PO DAILY COUNT INCLUDES [facility] Last Admin: 07/09/19 09:02 Dose: 250 mg Senna/Docusate Sodium (Senokot S) 2 tab PO BID PRN PRN Reason: Constipation Sodium Chloride (Flush - Normal Saline) 10 ml IVF Q12HR WAYNE Last Admin: 07/09/19 09:02 Dose: 10 ml Sodium Chloride (Flush - Normal Saline) 10 ml IVF PRN PRN PRN Reason: Saline Flush Vital Signs & Weight: Vital Signs Temp Pulse Pulse Pulse Resp BP BP 07/09/19 15:13 98.1 F 78 16 07/09/19 12:37 73 07/09/19 11:52 73 81 159/89 H 141/77 H 07/09/19 11:15 97.6 F 76 16 07/09/19 08:58 07/09/19 07:45 97.6 F 84 16 BP BP BP BP Pulse Ox Pulse Ox Pulse Ox 07/09/19 15:13 129/69 98 07/09/19 12:37 132/81 114/71 77/51 L 07/09/19 11:52 99 98 07/09/19 11:15 158/91 H 98 07/09/19 08:58 128/61 97/54 L 135/72 07/09/19 07:45 102/57 L 86/49 L 99 Admit Weight 197 lb 11.2 oz Weight 197 lb 9.6 oz - Physical Exam General: alert & oriented x3 HEENT: mucus membranes moist Neck: supple neck Cardiac: regular rate and rhythm, S1/S2 Lungs: clear to auscultation, decreased breath sounds Neuro: cranial nerve 2-12 intact - Labs Result Diagrams: 07/08/19 04:31 07/08/19 04:31 Troponin/CKMB Troponin I Less than 0.010 ng/mL (< 0.028) 07/04/19 12:46 - Telemetry Sinus rhythms and dysrhythmias: sinus rhythm - Assessment/Plan Assessment/Plan: 1. Acute on Chronic systolic HF - s/p LHC on 07/08/2019 with 80% stenosis in 1st diag; cont. medical tx; Not on BBlocker, PHONG/ARB or diuretic for now due to orthostatic hypotension 2. Non-ischemic CMY - on LifeVest 3. Symptomatic orthostatic hypotension - on midodrine 2.5mg TID 4. DM type 2 - 5. MATY - improved 6. 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
--- NOTE | 2019-07-09 22:49 | PDOC.EVN ---
Event Note - Event Note Event Note: patient discharged, could not be on beta david or osmani inhibitor due to symptomatic orthostatic hypotension, cardiology aware and will see in clinic, discharge summary to follow
--- NOTE | 2019-07-11 02:28 | PQF ---
JOSE WOODS MICHAEL, MD [id number] CLINICAL DOCUMENTATION CLARIFICATION FORM: POST DISCHARGE Addendum to original discharge summary date: ____ Late entry note date: __ DATE: 07/11/19 ATTN:Sav Cueto Please exercise your independent, professional judgment in responding to the clarification form. Clinical indicators are provided on the bottom of this form for your review Based on your clinical judgment, can you please specify etiology of patient's dizziness? Please check appropriate box(s): [ ] Orthostatic hypotension [ ] MATY [ ] Cardiomyopathy [ ] Acute on chronic CHF [ ] Other diagnosis [ ] Unable to determine In addition, please specify: Present on Admission (POA): [ ] Yes [ ] No [ ] Unable to determine For continuity of documentation, please document condition throughout progress notes and discharge summary. Thank You. CLINICAL INDICATORS - SIGNS / SYMPTOMS / LABS ED Notes 07/04 "patient presents with evaluation of lightheadedness" 07/04 "complaints of dizziness" HP 07/04 "patient's BP was low in the systolic 70s to 80s to 90s" HP 07/04 "hypotension unclear etiology" PN 07/05 "episode of HTN and dizziness most likely related to dehydration as the patient had low blood pressure" Consult 07/06 "continuos to have orthostatic hypotension" RISK FACTORS ED Notes 07/04-64 years old male ED Notes 07/04-DM HP 07/04-Foot ulcer HP 07/04-Hyperkalemia HP 07/04-MATY PN 07/05-Dehydration Consult 07/06-Cardiomyopathy Consult 07/06-Orthostatic hypotension PN 07/09-Acute on chronic CHF TREATMENTS: HP 07/04-Hold Lisinopril HP 07/04-Echocardiogram HP 07/04-EKG HP 07/04-IVF Cardiac cath 07/04-LHC PN 07/05-Blood glucose monitoring Consult 07/06-Cardiology Consult MAR 07/08-Midodrine 2.5mg Oral (This form is maintained as a part of the permanent medical record) 2014 [email or web address], [employer]. All Rights Reserved Nelly [email or web address] [not provided] MTDD
== END 2019-07-09 16:33 | disposition home or self-care (01) | DRG 286 ==
LOC: ERS 11:38 → 2SW 19:37 → OBSVTOIN 19:37 → 2NO 07-07 19:06
PROVIDERS: ADMIT Internal Medicine; ATTEND Internal Medicine
PROC: 4A023N7 Measurement of Cardiac Sampling and Pressure, Left Heart, Percutaneous Approach (ICD-10-PCS; principal; 2019-07-08)
PROC: B2111ZZ Fluoroscopy of Multiple Coronary Arteries using Low Osmolar Contrast (ICD-10-PCS; 2019-07-08)
PROC: B2151ZZ Fluoroscopy of Left Heart using Low Osmolar Contrast (ICD-10-PCS; 2019-07-08)
DX: I95.1 Orthostatic hypotension (principal); I50.23 Acute on chronic systolic (congestive) heart failure; I42.8 Other cardiomyopathies; N17.9 Acute kidney failure, unspecified; Z66 Do not resuscitate; E11.621 Type 2 diabetes mellitus with foot ulcer; E87.5 Hyperkalemia; T46.4X5A Adverse effect of angiotensin-converting-enzyme inhibitors, initial encounter; E86.0 Dehydration; L97.519 Non-pressure chronic ulcer of other part of right foot with unspecified severity; I11.0 Hypertensive heart disease with heart failure; Z89.421 Acquired absence of other right toe(s); Z79.82 Long term (current) use of aspirin; Z79.4 Long term (current) use of insulin; Z79.899 Other long term (current) drug therapy; Z91.018 Allergy to other foods
CPT/HCPCS: 36415; 36416; 71045; 76942; 78452; 80048; 80053; 80400; 81003; 82533; 82550; 82607; 83605; 83690; 83880; 84443; 84484; 85025; 85379; 87040; 87804; 93005; 93017; 93306; 93458; 93798; 94760; 96360; 96361; 97605; 99152; A4218; A9500; C1769; J0834; J1644; J1815; J2001; J2250; J2785; J3010; Q9967

== ENCOUNTER 2019-07-13 14:07 | Outpatient (CLI) | payer BC ==
[2019-07-13] MEDS ORDERED: Sodium Chloride 0.9% 15 ML NEB ONE (15:37)
== END 2019-07-13 14:08 | disposition home or self-care (01) ==
LOC: WCC 14:07
PROVIDERS: ATTEND Family Medicine
DX: T81.89XD Other complications of procedures, not elsewhere classified, subsequent encounter (principal)
CPT/HCPCS: 97605; A4218

== ENCOUNTER 2019-07-18 12:31 | Outpatient (CLI) | payer BC ==
--- NOTE | 2019-07-18 10:43 | PRG ---
DATE OF SERVICE: 07/18/2019 HISTORY: Mr. Sukumar Vigil is a very pleasant 64-year-old gentleman, who presents to the [facility]ound [facility] for evaluation of a wound of the right foot subsequent to amputation of the second, third, fourth, and fifth toes, and metatarsals on 05/11/[address] Giovanni Sage. Negative pressure therapy was initiated intraoperatively and upon discharge from [facility], the patient was referred to the Wound Center for assistance with dressing changes of the wound VAC. During the patient's hospital stay, Mr. Vigil was seen in consultation by Dr. Roman Ramirez of Infectious Diseases. The patient has received IV antibiotics as per Infectious Diseases, specifically Rocephin 2 g IV daily. OBJECTIVE: VITAL SIGNS: Temperature 97.6, pulse 76, respirations 19, blood pressure 136/73. Accu-Chek 215. EXTREMITIES: A large wound of the right foot is present, which measures approximately 8.0 x 2.0 cm. The dimensions of the wound at the time of the patient's visit on 06/20/2019 were approximately 8.7 x 5.0 cm. Granulation tissue is present within the wound margins. No purulent drainage is associated with the wound. Erythema of the skin surrounding the wound is present, which appears to be secondary to irritation from the drape applied with the wound VAC. No maceration of the skin of the periwound is noted. No significant edema of the right foot is present on exam today. ASSESSMENT AND PLAN: 1. Right foot wound as described above. Negative pressure therapy will be discontinued today. Dressing changes of Xeroform gauze followed by an ABD, Kerlix, and an Aniceto bandage will be initiated today. These dressing changes are to be performed on a daily basis after cleansing and irrigation with the assistance of the patient's . 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 The patient will be seen by Dr. Sage later this week. I will see Mr. Vigil again in 7 to 10 days. 2. Diabetes mellitus. The patient's Accu-Chek in clinic today is 215. The patient has been reminded that for optimal wound healing, his blood glucoses should remain below 150. 3. Hypertension. 4. Obstructive sleep apnea. Job ID: [id number]
[2019-07-18] MEDS ORDERED: Sodium Chloride 0.9% 15 ML NEB ONE (16:47)
== END 2019-07-18 12:32 | disposition home or self-care (01) ==
LOC: WCC 12:31
PROVIDERS: ATTEND Family Medicine
DX: T81.89XD Other complications of procedures, not elsewhere classified, subsequent encounter (principal); E11.9 Type 2 diabetes mellitus without complications; I10 Essential (primary) hypertension; G47.33 Obstructive sleep apnea (adult) (pediatric); Z89.421 Acquired absence of other right toe(s)
CPT/HCPCS: 36415; 80048; 83036; 83540; 83550; A4218

== ENCOUNTER 2019-07-25 14:02 | Outpatient (CLI) | payer BC ==
--- NOTE | 2019-07-25 12:52 | PRG ---
DATE OF SERVICE: 07/25/2019 HISTORY: Mr. Sukumar Vigil is a very pleasant 64-year-old gentleman, who presents to the Wound Center for evaluation of a wound of the right foot subsequent to amputation of the second, third, fourth, and fifth toes, and metatarsals on 05/11/[address] Giovanni Sage. Negative pressure therapy was initiated intraoperatively and upon discharge from [facility], the patient was referred to the Wound Center for assistance with dressing changes of the wound VAC. During the patient's hospital stay, Mr. Vigil was seen in consultation by Dr. Roman Ramirez of Infectious Diseases. The patient has received IV antibiotics as per Infectious Diseases, specifically Rocephin 2 g IV daily. Since the patient's last visit, Mr. Vigil has been seen by Dr. Sage and placed on wet-to-dry dressing changes for his right foot wound. PHYSICAL EXAMINATION: VITAL SIGNS: Pulse 78, respirations 17, and blood pressure 112/58. Accu-Chek 150. EXTREMITIES: A large wound of the right foot is present, which measures approximately 7.5 x 1.4 cm. The dimensions of the wound at the time of the patient's visit on 07/18/2019 were approximately 8.0 x 2.0 cm. Granulation tissue is present within the wound margins. Necrotic and nonviable tissue present within the wound margins was debrided with an excisional full-thickness debridement with the use of a curette. No purulent drainage is associated with the wound. No cellulitis of the right foot is appreciated. No maceration of the skin of the periwound is noted. A dorsalis pedis pulse and posterior tibial pulse are both easily palpable on the right. No significant edema of the right foot is present on exam today. ASSESSMENT AND PLAN: 1. Right foot wound as described above. Wet-to-dry dressing changes as per Dr. Sage are to be performed on a daily basis after cleansing and irrigation. 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 I will see Mr. Vigil again in 1 week. 2. Diabetes mellitus. The patient's Accu-Chek in clinic today is 150. The patient has been reminded that for optimal wound healing, his blood glucoses should remain below 150. 3. Hypertension. 4. Obstructive sleep apnea. Job ID: [id number]
[~2019-07-25 14:02] MED LIST changes: +Lidocaine 2% PF 100 mg/5 ml Syringe ONE
== END 2019-07-25 14:03 | disposition home or self-care (01) ==
LOC: WCC 14:02
PROVIDERS: ATTEND Family Medicine
DX: T81.89XD Other complications of procedures, not elsewhere classified, subsequent encounter (principal); Z89.421 Acquired absence of other right toe(s); E11.9 Type 2 diabetes mellitus without complications; I10 Essential (primary) hypertension; G47.33 Obstructive sleep apnea (adult) (pediatric)

== ENCOUNTER 2019-08-01 10:34 | Outpatient (CLI) | payer BC ==
--- NOTE | 2019-08-01 11:45 | PRG ---
DATE OF SERVICE: 08/01/2019 HISTORY: Mr. Sukumar Vigil is a very pleasant 64-year-old gentleman, who presents to the Wound Center for evaluation of a wound of the right foot subsequent to amputation of the second, third, fourth and fifth toes and metatarsals on 05/11/[address] Giovanni Sage. Negative pressure therapy was initiated intraoperatively and upon discharge from [facility], the patient was referred to the Wound Center for assistance with dressing changes of the wound VAC. During the patient's hospital stay, Mr. Vigil was seen in consultation by Dr. Roman Ramirez of Infectious Diseases. The patient has received IV antibiotics as per Infectious Diseases, specifically Rocephin 2 g IV daily. At the time of the patient's last visit with Dr. Sage, Mr. Vigil was placed on wet-to-dry dressing changes for his right foot wound. PHYSICAL EXAMINATION: VITAL SIGNS: Temperature 98.3, pulse 75, respirations 19, and blood pressure 136/73. Accu-Chek 133. EXTREMITIES: A large wound of the right foot is present which measures approximately 8.0 x 1.4 cm. The dimensions of the wound at the time of the patient's visit on 07/25/2019 were approximately 7.5 x 1.4 cm. Granulation tissue is present within the wound margins. Necrotic and nonviable tissue present within the wound margins was debrided with an excisional full-thickness debridement with the use of a curette. No purulent drainage is associated with the wound. No cellulitis of the right foot is appreciated. No maceration of the skin of the periwound is noted. No significant edema of the right foot is present on exam today. A new ulceration is present over the right lateral foot, which measures approximately 0.6 x 1.2 cm. No purulent drainage is associated with the wound. No erythema of the skin surrounding the wound is present. No maceration of the skin of the periwound is noted. ASSESSMENT AND PLAN: 1. Right foot wounds as described above. Wet-to-dry dressing changes as per Dr. Sage will be continued on a daily basis after cleansing and irrigation. For the new wound of the right lateral foot, dressing changes of Medihoney alginate will be initiated. These dressing changes are also to be performed on a daily basis after cleansing and irrigation. The patient states that he is performing his own dressing changes. The importance of offloading in achieving the healing of the right lateral foot wound has been discussed with the patient. Mr. Vigil has been given a prescription for a knee scooter. Mr. Vigil will contact the clinic in order to schedule his next followup appointment. The patient also has a followup appointment with Dr. Sage in August of next year. 2. Diabetes mellitus. The patient's Accu-Chek in clinic today is 133. The patient has been reminded that for optimal wound healing his blood glucoses should remain below 150. 3. Hypertension. 4. Obstructive sleep apnea. Job ID: [id number]
[2019-08-01] MEDS ORDERED: Sodium Chloride 0.9% 15 ML NEB ONE (16:29)
[2019-08-01] MEDS ORDERED: Lidocaine 2% PF 100 mg/5 ml Syringe ONE (16:29)
== END 2019-08-01 10:35 | disposition home or self-care (01) ==
LOC: WCC 10:34
PROVIDERS: ATTEND Family Medicine
DX: T81.89XD Other complications of procedures, not elsewhere classified, subsequent encounter (principal); G47.33 Obstructive sleep apnea (adult) (pediatric); I10 Essential (primary) hypertension; E11.9 Type 2 diabetes mellitus without complications; Z89.421 Acquired absence of other right toe(s)
CPT/HCPCS: A4218; J2001

== ENCOUNTER 2019-12-07 11:09 | Outpatient (CLI) | payer BC ==
--- NOTE | 2019-12-07 13:02 | RAD ---
3 VIEWS RIGHT FOOT: Date: 12/07/2019 COMPARISON: None. HISTORY: Diabetic foot ulcer of fifth metatarsal for 3 months. FINDINGS: The patient is status post amputation of the second, third, fourth, and fifth toes at the level of th e proximal metatarsal shafts. Calcific density is seen distal to the fifth metatarsal postoperative s ite. Linear density in this region extends to the surface of the skin along the plantar aspect of the foot, which may represent an ulceration with radiopaque material along the surface of the ulceration . There is degenerative change involving the dorsal aspect of the midfoot. There is talonavicular deg enerative change and there are calcaneal spurs in the origin of the plantar aponeurosis and insertion of Achilles tendon. IMPRESSION: Degenerative and postoperative change. Probable plantar ulcer near the fifth metatarsal. If there is concern for osteomyelitis, MRI advised. POS: BOBBI
== END 2019-12-07 11:10 | disposition home or self-care (01) ==
LOC: BICRAD 11:09
PROVIDERS: ATTEND Nurse Practitioner Family
DX: E11.621 Type 2 diabetes mellitus with foot ulcer (principal); L97.519 Non-pressure chronic ulcer of other part of right foot with unspecified severity; E11.40 Type 2 diabetes mellitus with diabetic neuropathy, unspecified; M19.071 Primary osteoarthritis, right ankle and foot; Z98.890 Other specified postprocedural states
CPT/HCPCS: 36415; 83036; 85027; 85652; 86140

== ENCOUNTER 2020-11-17 14:43 | Inpatient (IN) | payer MEDICARE ==
[2020-11-17 15:27] LABS: #Eosinphils 0.1 thou/uL (0.0-0.7); #Lymphocytes 0.5 thou/uL (1.20-3.40); #Monocytes 0.7 thou/uL (0.11-0.59); #Neutrophils 9.3 thou/uL (1.40-6.50); %Basophils 0.3 % (0.0-1.0); %Eosinophils 0.6 % (0.0-10.0); %Monocytes 6.9 % (0.0-10.0); %Neutrophils 87.1 % (42.0-75.0); Hemoglobin 11.4 g/dL (14.0-18.0); Mean Corpuscular HGB CONC 34.4 g/dL (32.0-36.0); Mean Corpuscular Hemoglobin 30.8 pg (27.0-31.0); Mean Corpuscular Volume 89.7 fL (78.0-98.0); Mean Platelet Volume 9.3 fL (7.4-10.4); Platelet Count 149 thou/uL (130-400); RBC Distribution Width 11.2 % (11.5-14.5); Red Blood Cell (RBC) Count 3.71 mill/uL (4.70-6.10); White Blood Cell (WBC) Count 10.6 thou/uL (4.8-10.8)
[2020-11-17 15:40] LABS: Prothrombin Time 13.8 sec (12.0-14.7)
[2020-11-17 15:41] LABS: PTT 26.9 sec (22.9-36.1)
[2020-11-17 15:51] LABS: ALT (SGPT) 8 U/L (8-55); AST (SGOT) 12 U/L (5-34); Albumin 3.8 g/dL (3.4-4.8); Alkaline Phosphatase 100 U/L (40-110); Anion Gap 15 mmol/L (10-20); BUN (Urea Nitrogen) 21 mg/dL (8.4-25.7); Bilirubin, Total 0.6 mg/dL (0.2-1.2); Calc. Creatinine Clearance 0 mL/min (70-130); Calcium 8.5 mg/dL (7.8-10.44); Carbon Dioxide 22 mmol/L (23-31); Chloride 108 mmol/L (98-107); Globulin 2.2 g/dL (2.4-3.5); Glucose 162 mg/dL (80-115); Potassium 4.6 mmol/L (3.5-5.1); Sodium 140 mmol/L (136-145)
[2020-11-17] MEDS ORDERED: Sodium Chloride 0.9% 100 ML ONE (15:56)
[2020-11-17] MEDS ORDERED: Vancomycin 1 GM/200 ML BAG ONE (15:56)
[2020-11-17] MEDS ORDERED: Cefepime 2 GM VIAL ONE (15:56)
[2020-11-17 16:14] LABS: CKMB 1.2 ng/mL (0-6.6)
[2020-11-17] MEDS ORDERED: Ondansetron PF 4 MG/2 ML Vial IVP PRN (17:14)
[2020-11-17] MEDS ORDERED: Dextrose 5% in Water 1,000 ML IV PRN (17:14)
[2020-11-17] MEDS ORDERED: Dextrose 50% Abboject 50 ML SYRINGE SLOW IVP PRN (17:14)
[2020-11-17] MEDS ORDERED: Morphine 2 MG/ML VIAL SLOW IVP PRN (17:37)
[2020-11-17 17:52] VITALS: BMI 31.3
[2020-11-17] MEDS ORDERED: Pharmacy to RENALLY ADJUST CEFEPIME IVPB PRN (18:47)
[2020-11-17] MEDS: Sodium Chloride 0.9% 1,000 ML IV SCH (20:43)
[2020-11-17] MEDS: VANCOMYCIN 1.25 GM/250 ML BAG 1.25 GM in Premix Bag 1 BAG IVPB SCH (21:28)
[2020-11-18] MEDS: Acetaminophen 325 MG TAB PO PRN ×2 (00:41→09:07)
[2020-11-18 01:41] LABS: SARS-CoV-2 PCR by NAA Not Detected (NotDetected)
[2020-11-18] MEDS: Sodium Chloride 0.9% 1,000 ML IV SCH ×3 (04:10→19:23)
[2020-11-18] MEDS: Cefepime 2 GM in Sodium Chloride 0.9% 100 ML IVPB SCH ×2 (04:12→16:11)
[2020-11-18 04:26] LABS: #Eosinphils 0.1 thou/uL (0.0-0.7); #Monocytes 0.7 thou/uL (0.11-0.59); #Neutrophils 7.2 thou/uL (1.40-6.50); %Basophils 0.4 % (0.0-1.0); %Eosinophils 1.3 % (0.0-10.0); %Lymphocytes 11.3 % (21.0-51.0); %Monocytes 7.4 % (0.0-10.0); %Neutrophils 79.6 % (42.0-75.0); Hemoglobin 10.2 g/dL (14.0-18.0); Mean Corpuscular HGB CONC 34.3 g/dL (32.0-36.0); Mean Corpuscular Hemoglobin 30.9 pg (27.0-31.0); Mean Corpuscular Volume 90.3 fL (78.0-98.0); Mean Platelet Volume 8.8 fL (7.4-10.4); Platelet Count 141 thou/uL (130-400); Red Blood Cell (RBC) Count 3.29 mill/uL (4.70-6.10)
[2020-11-18 04:47] LABS: Anion Gap 13 mmol/L (10-20); BUN (Urea Nitrogen) 20 mg/dL (8.4-25.7); Calc. Creatinine Clearance 92 mL/min (70-130); Carbon Dioxide 20 mmol/L (23-31); Chloride 106 mmol/L (98-107); Glucose 156 mg/dL (80-115); Potassium 4.5 mmol/L (3.5-5.1); Sodium 134 mmol/L (136-145)
[2020-11-18] MEDS: glyBURIDE 5 MG TAB PO SCH (09:06)
[2020-11-18] MEDS: metFORMIN 500 MG TAB PO SCH ×2 (09:06→16:11)
[2020-11-18] MEDS: Enoxaparin Sodium 40 MG/0.4 ML SYRINGE SC SCH (09:06)
[2020-11-18] MEDS: VANCOMYCIN 1.25 GM/250 ML BAG 1.25 GM in Premix Bag 1 BAG IVPB SCH ×2 (09:35→21:13)
[2020-11-18] MEDS: HYDROcodone/Acetaminophen 5/325 mg Tablet PO PRN (10:14)
[2020-11-18] MEDS: HumaLOG 300 UNITS/3 ML VIAL SC PRN (10:21)
[2020-11-18 20:36] LABS: Vancomycin, Trough 18.2 ug/mL
[2020-11-19] MEDS: HYDROcodone/Acetaminophen 5/325 mg Tablet PO PRN (01:03)
[2020-11-19] MEDS ORDERED: hydrALAZINE 20 MG/ML VIAL SLOW IVP PRN (01:14)
[2020-11-19] MEDS: Cefepime 2 GM in Sodium Chloride 0.9% 100 ML IVPB SCH ×2 (04:11→15:04)
[2020-11-19 04:29] LABS: #Eosinphils 0.2 thou/uL (0.0-0.7); #Monocytes 0.7 thou/uL (0.11-0.59); #Neutrophils 4.6 thou/uL (1.40-6.50); %Basophils 0.2 % (0.0-1.0); %Eosinophils 2.9 % (0.0-10.0); %Lymphocytes 15.8 % (21.0-51.0); %Monocytes 10.7 % (0.0-10.0); %Neutrophils 70.4 % (42.0-75.0); Hemoglobin 9.8 g/dL (14.0-18.0); Mean Corpuscular HGB CONC 35.7 g/dL (32.0-36.0); Mean Corpuscular Hemoglobin 32.1 pg (27.0-31.0); Mean Platelet Volume 8.7 fL (7.4-10.4); Platelet Count 132 thou/uL (130-400); Red Blood Cell (RBC) Count 3.05 mill/uL (4.70-6.10); White Blood Cell (WBC) Count 6.6 thou/uL (4.8-10.8)
[2020-11-19 04:52] LABS: Anion Gap 12 mmol/L (10-20); BUN (Urea Nitrogen) 17 mg/dL (8.4-25.7); Calc. Creatinine Clearance 101 mL/min (70-130); Calcium 7.9 mg/dL (7.8-10.44); Carbon Dioxide 20 mmol/L (23-31); Chloride 107 mmol/L (98-107); Glucose 135 mg/dL (80-115); Potassium 4.4 mmol/L (3.5-5.1); Sodium 135 mmol/L (136-145)
[2020-11-19] MEDS: glyBURIDE 5 MG TAB PO SCH (08:17)
[2020-11-19] MEDS: Enoxaparin Sodium 40 MG/0.4 ML SYRINGE SC SCH (08:17)
[2020-11-19] MEDS: metFORMIN 500 MG TAB PO SCH ×2 (08:17→17:15)
[2020-11-19] MEDS ORDERED: Lisinopril 10 MG TAB PO SCH (09:00)
[2020-11-19] MEDS ORDERED: Carvedilol 6.25 MG TAB PO SCH (09:00)
[2020-11-19] MEDS ORDERED: Vancomycin 1 GM in Premix Bag 1 BAG IVPB SCH (09:00)
[2020-11-19] MEDS: HumaLOG 300 UNITS/3 ML VIAL SC PRN (11:57)
[2020-11-19 16:00] VITALS: BP 147/75; TEMP 98.8
[2020-11-19] MEDS ORDERED: Atorvastatin Calcium 10 MG TAB PO SCH (21:00)
== END 2020-11-19 17:18 | disposition home or self-care (01) | DRG 872 ==
LOC: ERS 14:43 → ONC 16:42 → 2NO 19:09
PROVIDERS: ADMIT Internal Medicine; ATTEND Internal Medicine
DX: A41.9 Sepsis, unspecified organism (principal); L02.413 Cutaneous abscess of right upper limb; I50.22 Chronic systolic (congestive) heart failure; E78.00 Pure hypercholesterolemia, unspecified; Z20.822 Contact with and (suspected) exposure to COVID-19; I11.0 Hypertensive heart disease with heart failure; E11.65 Type 2 diabetes mellitus with hyperglycemia; E11.40 Type 2 diabetes mellitus with diabetic neuropathy, unspecified; Z91.018 Allergy to other foods; Z89.421 Acquired absence of other right toe(s)
CPT/HCPCS: 36415; 36416; 71045; 80048; 80053; 80202; 82553; 82962; 83605; 84484; 85025; 85610; 85730; 87040; 87070; 87205; 87635; 93005; 93798; 96365; 96367; J0360; J0692; J1650; J1815; J2270; J3370; J3490; U0003; U0005

== ENCOUNTER 2020-11-30 12:10 | Emergency (ER) | payer MEDICARE, OTHER ==
[2020-11-30 13:00] LABS: #Basophils 0.1 thou/uL (0.0-0.2); #Eosinphils 0.1 thou/uL (0.0-0.7); #Lymphocytes 1.6 thou/uL (1.20-3.40); #Monocytes 0.5 thou/uL (0.11-0.59); #Neutrophils 7.4 thou/uL (1.40-6.50); %Basophils 0.5 % (0.0-1.0); %Eosinophils 1.5 % (0.0-10.0); %Lymphocytes 16.1 % (21.0-51.0); %Monocytes 4.9 % (0.0-10.0); %Neutrophils 77.1 % (42.0-75.0); Hemoglobin 12.2 g/dL (14.0-18.0); Mean Corpuscular HGB CONC 34.3 g/dL (32.0-36.0); Mean Corpuscular Hemoglobin 30.8 pg (27.0-31.0); Mean Corpuscular Volume 89.8 fL (78.0-98.0); Mean Platelet Volume 8.5 fL (7.4-10.4); Platelet Count 291 thou/uL (130-400); RBC Distribution Width 11.1 % (11.5-14.5); Red Blood Cell (RBC) Count 3.96 mill/uL (4.70-6.10); White Blood Cell (WBC) Count 9.6 thou/uL (4.8-10.8)
[2020-11-30 13:30] LABS: ALT (SGPT) 12 U/L (8-55); AST (SGOT) 15 U/L (5-34); Alkaline Phosphatase 92 U/L (40-110); Anion Gap 14 mmol/L (10-20); BUN (Urea Nitrogen) 26 mg/dL (8.4-25.7); Bilirubin, Total 0.3 mg/dL (0.2-1.2); Calc. Creatinine Clearance 0 mL/min (70-130); Calcium 9.5 mg/dL (7.8-10.44); Carbon Dioxide 26 mmol/L (23-31); Chloride 106 mmol/L (98-107); Globulin 2.5 g/dL (2.4-3.5); Glucose 92 mg/dL (80-115); Lipase 74 U/L (8-78); Magnesium 1.9 mg/dL (1.6-2.6); Potassium 5.4 mmol/L (3.5-5.1); Protein, Total 6.5 g/dL (5.8-8.1); Sodium 141 mmol/L (136-145)
== END 2020-11-30 15:55 | disposition home or self-care (01) ==
LOC: ERS 12:10
DX: R55 Syncope and collapse (principal); E86.0 Dehydration; E11.9 Type 2 diabetes mellitus without complications; I10 Essential (primary) hypertension; E78.5 Hyperlipidemia, unspecified; Z79.84 Long term (current) use of oral hypoglycemic drugs; Z79.899 Other long term (current) drug therapy
CPT/HCPCS: 36415; 36416; 71045; 80053; 82962; 83690; 83735; 84484; 85025; 93005; 93798

== ENCOUNTER 2021-06-10 08:21 | Outpatient (CLI) | payer MEDICARE ==
[2021-06-10] MEDS ORDERED: Iopamidol-370 76% 500 ML 1 ML ONE (09:24)
== END 2021-06-10 08:22 | disposition home or self-care (01) ==
LOC: BICCT 08:21
PROVIDERS: ATTEND Urology
DX: R31.29 Other microscopic hematuria (principal); N40.0 Benign prostatic hyperplasia without lower urinary tract symptoms; K86.89 Other specified diseases of pancreas
CPT/HCPCS: 74178; 82565; Q9967

== ENCOUNTER 2021-07-19 14:37 | Outpatient (CLI) | payer MEDICARE, OTHER ==
[2021-07-19 16:07] LABS: Hemoglobin 11.5 g/dL (13.5-17.5); Mean Corpuscular HGB CONC 33.8 g/dL (32.0-36.0); Mean Corpuscular Volume 88.8 fl (81.2-95.1); Mean Platelet Volume 11.5 fl (7.4-10.4); Platelet Count 205 10x3/uL (150-450); RBC Distribution Width 11.9 % (11.5-14.5); Red Blood Cell (RBC) Count 3.83 10x6/uL (4.32-5.72); White Blood Cell (WBC) Count 6.3 10x3/uL (3.5-10.5)
[2021-07-19 16:24] LABS: PTT 25.9 sec (22.0-33.0); Prothrombin Time 11.4 sec (9.5-12.1)
[2021-07-19 16:32] LABS: Anion Gap 13 mmol/L (10-20); BUN (Urea Nitrogen) 20 mg/dL (8.4-25.7); Calc. Creatinine Clearance 0 mL/min (70-130); Calcium 8.6 mg/dL (7.8-10.44); Carbon Dioxide 27 mmol/L (23-31); Chloride 106 mmol/L (98-107); Glucose 203 mg/dL (80-115); Potassium 4.6 mmol/L (3.5-5.1); Sodium 141 mmol/L (136-145)
[2021-07-19 17:40] LABS: Bilirubin Neg (Negative); Blood, Urine 10 (Negative); Clarity Clear (Clear); Glucose, Urine (Dipstick) Normal (Negative); Ketone, Urine Negative (Negative); Leukocyte Negative (Negative); Nitrite Negative (Negative); Protein, Urine (Dipstick) 30 mg/dl (Neg-Trace); Urobilinogen Normal mg/dL (Less than 2)
[2021-07-19 17:52] LABS: Bacteria/HPF 1+ HPF (None Seen); Mucous/LPF Few LPF (<2+); RBC/HPF 0-3 HPF (0-3); Squamous Epithelial 0-3 HPF (0-3); WBC/HPF 0-3 HPF (0-3)
[2021-07-20 15:32] LABS: SARS-CoV-2 PCR by NAA Not Detected (NotDetected)
== END 2021-07-19 14:38 | disposition home or self-care (01) ==
LOC: LABBT 14:37
PROVIDERS: ATTEND Urology
DX: Z01.818 Encounter for other preprocedural examination (principal); N52.9 Male erectile dysfunction, unspecified; E11.59 Type 2 diabetes mellitus with other circulatory complications; R42 Dizziness and giddiness; I42.8 Other cardiomyopathies; I50.23 Acute on chronic systolic (congestive) heart failure; N40.1 Benign prostatic hyperplasia with lower urinary tract symptoms; R39.14 Feeling of incomplete bladder emptying; Z12.5 Encounter for screening for malignant neoplasm of prostate; R31.29 Other microscopic hematuria; R81 Glycosuria; R80.8 Other proteinuria; Z20.822 Contact with and (suspected) exposure to COVID-19
CPT/HCPCS: 80048; 81001; 85027; 85610; 85730; 87086; 93005; U0003; U0005; 93010

== ENCOUNTER 2021-07-24 08:22 | Day surgery (SDC) | payer MEDICARE, OTHER ==
[2021-07-24] MEDS ORDERED: Levofloxacin 500 mg/D5W 100 ml Premix Bag ONE (09:23)
[2021-07-24] MEDS ORDERED: Midazolam HCl 2 mg/2 ml Vial ONE (10:52)
[2021-07-24] MEDS ORDERED: PROPOFOL 20 ML ONE (10:52)
[2021-07-24] MEDS ORDERED: PROPOFOL 200 MG/20 ML VIAL ONE (10:59)
[2021-07-24] MEDS ORDERED: Lidocaine 1% PF 5 ML VIAL ONE (10:59)
[2021-07-24] MEDS ORDERED: Phenazopyridine HCl 100 MG TAB ONE (11:48)
[2021-07-24] MEDS ORDERED: Hyoscyamine Sulfate SL 0.125 mg Tablet ONE (11:50)
[2021-07-24] MEDS ORDERED: Morphine 4 MG/ML VIAL ONE (12:07)
[2021-07-24] MEDS ORDERED: HYDROcodone/Acetaminophen 5/325 mg Tablet ONE (12:52)
[2021-07-24] MEDS ORDERED: Labetalol HCl 100 MG/20 ML VIAL ONE (13:11)
== END 2021-07-24 15:10 | disposition home or self-care (01) ==
LOC: SDC 08:22
PROVIDERS: ATTEND Urology
PROC: 0T7D8DZ Dilation of Urethra with Intraluminal Device, Via Natural or Artificial Opening Endoscopic (ICD-10-PCS; principal; 2021-07-24)
DX: N40.1 Benign prostatic hyperplasia with lower urinary tract symptoms (principal); R39.14 Feeling of incomplete bladder emptying; N13.8 Other obstructive and reflux uropathy; N32.89 Other specified disorders of bladder; I95.1 Orthostatic hypotension; E11.9 Type 2 diabetes mellitus without complications; F17.290 Nicotine dependence, other tobacco product, uncomplicated; N52.9 Male erectile dysfunction, unspecified; I42.8 Other cardiomyopathies; I50.23 Acute on chronic systolic (congestive) heart failure; Z79.84 Long term (current) use of oral hypoglycemic drugs; Z79.899 Other long term (current) drug therapy; Z91.018 Allergy to other foods; Z95.810 Presence of automatic (implantable) cardiac defibrillator
CPT/HCPCS: J1956; J2250; J2270; J2704; L8699

== ENCOUNTER 2022-08-17 13:10 | Inpatient (IN) | payer MEDICARE, OTHER ==
[~2022-08-17 13:10] MED LIST changes: +Iopamidol-370 76% 500 ML 1 ML ONE; -Lidocaine 2% PF 100 mg/5 ml Syringe ONE; -Sodium Chloride 0.9% 15 ML NEB ONE
[2022-08-17 13:43] LABS: #Eosinphils 0.3 thou/uL (0.0-0.7); #Lymphocytes 1.5 thou/uL (1.20-3.40); #Monocytes 0.6 thou/uL (0.11-0.59); #Neutrophils 6.4 thou/uL (1.40-6.50); %Basophils 0.5 % (0.0-1.0); %Eosinophils 3.1 % (0.0-10.0); %Lymphocytes 17.1 % (21.0-51.0); %Monocytes 6.5 % (0.0-10.0); %Neutrophils 72.8 % (42.0-75.0); Mean Corpuscular HGB CONC 35.6 g/dL (32.0-36.0); Mean Corpuscular Hemoglobin 32.6 pg (27.0-31.0); Mean Corpuscular Volume 91.7 fl (78.0-98.0); Mean Platelet Volume 9.2 fL (7.4-10.4); Platelet Count 198 10x3/uL (130-400); RBC Distribution Width 11.3 % (11.5-14.5); White Blood Cell (WBC) Count 8.7 10x3/uL (4.8-10.8)
[2022-08-17 13:56] LABS: INR-International Normal Ratio 1.1; PTT 28.5 sec (22.9-36.1); Prothrombin Time 14.2 sec (12.0-14.7)
[2022-08-17 14:02] LABS: ALT (SGPT) 10 U/L (8-55); AST (SGOT) 12 U/L (5-34); Albumin 3.9 g/dL (3.4-4.8); Alkaline Phosphatase 146 U/L (40-110); Anion Gap 15 mmol/L (10-20); BUN (Urea Nitrogen) 21 mg/dL (8.4-25.7); Bilirubin, Total 0.4 mg/dL (0.2-1.2); Calc. Creatinine Clearance 0 mL/min (70-130); Calcium 8.8 mg/dL (7.8-10.44); Carbon Dioxide 25 mmol/L (23-31); Chloride 105 mmol/L (98-107); Estimated GFR 60; Globulin 2.7 g/dL (2.4-3.5); Glucose 125 mg/dL (80-115); Potassium 4.9 mmol/L (3.5-5.1); Protein, Total 6.6 g/dL (5.8-8.1); Sodium 140 mmol/L (136-145)
[2022-08-17] MEDS ORDERED: Ondansetron ODT 4 MG TAB PO PRN (15:24)
[2022-08-17] MEDS ORDERED: Acetaminophen 325 MG TAB PO PRN (15:24)
[2022-08-17] MEDS ORDERED: Ondansetron PF 4 MG/2 ML Vial IVP PRN (15:24)
[2022-08-17] MEDS ORDERED: Nicotine 14 MG PATCH TD SCH (15:30)
[2022-08-17] MEDS ORDERED: Dextrose 5% in Water 1,000 ML IV PRN (15:51)
[2022-08-17] MEDS ORDERED: Dextrose 50% Abboject 50 ML SYRINGE SLOW IVP PRN (15:51)
[2022-08-17] MEDS ORDERED: HumaLOG 300 UNITS/3 ML VIAL SC PRN ×2 (15:51)
[2022-08-17 16:00] LABS: Hemoglobin A1c 5.6 % (4.0-6.0)
[2022-08-17 16:05] LABS: Magnesium 1.7 mg/dL (1.6-2.6)
[2022-08-17 16:09] LABS: Bilirubin Negative (Negative); Blood, Urine Negative (Negative); Clarity Clear (Clear); Glucose, Urine (Dipstick) Normal (Negative); Ketone, Urine Negative (Negative); Leukocyte Negative Leu/uL (Negative); Nitrite Negative (Negative); Protein, Urine (Dipstick) 50 mg/dL (Neg-Trace); Specific Gravity, Urine 1.032 (1.002-1.036); Squamous Epithelial None Seen HPF (0-3); Urobilinogen Normal mg/dL (Less than 2)
[2022-08-17 16:10] LABS: Bacteria/HPF Rare-Few HPF (None Seen); RBC/HPF 0-3 HPF (0-3)
[2022-08-17 17:35] VITALS: BMI 29.1
[2022-08-17] MEDS: Atorvastatin Calcium 40 MG TAB PO SCH ×2 (21:37→21:49)
[2022-08-18 05:38] LABS: Anion Gap 13 mmol/L (10-20); BUN (Urea Nitrogen) 21 mg/dL (8.4-25.7); Calc. Creatinine Clearance 87 mL/min (70-130); Calcium 8.8 mg/dL (7.8-10.44); Carbon Dioxide 26 mmol/L (23-31); Cardiac Risk 5.2 (Less than 4.5); Chloride 105 mmol/L (98-107); Cholesterol 162 mg/dl (< 200 Desired); Estimated GFR 72; Glucose 104 mg/dL (80-115); HDL Cholesterol 31 mg/dL (>60 Neg Risk); LDL Cholesterol, Calculated 95 mg/dL; Potassium 4.4 mmol/L (3.5-5.1); Sodium 140 mmol/L (136-145); Triglycerides 182 mg/dL (Less than 150)
[2022-08-18 05:42] LABS: #Eosinphils 0.3 thou/uL (0.0-0.7); #Lymphocytes 1.6 thou/uL (1.20-3.40); #Monocytes 0.6 thou/uL (0.11-0.59); #Neutrophils 4.2 thou/uL (1.40-6.50); %Basophils 0.4 % (0.0-1.0); %Lymphocytes 24.2 % (21.0-51.0); %Monocytes 9.3 % (0.0-10.0); %Neutrophils 62.1 % (42.0-75.0); Mean Corpuscular HGB CONC 35.2 g/dL (32.0-36.0); Mean Corpuscular Hemoglobin 32.2 pg (27.0-31.0); Mean Corpuscular Volume 91.3 fl (78.0-98.0); Mean Platelet Volume 9.5 fL (7.4-10.4); Platelet Count 176 10x3/uL (130-400); RBC Distribution Width 11.1 % (11.5-14.5); Red Blood Cell (RBC) Count 3.72 mill/uL (4.70-6.10); White Blood Cell (WBC) Count 6.7 10x3/uL (4.8-10.8)
[2022-08-18] MEDS ORDERED: Aspirin 300 MG Suppository PR SCH (09:00)
[2022-08-18] MEDS ORDERED: Aspirin 81 mg Enteric Coated Tablet PO SCH ×2 (09:00→10:45)
[2022-08-18] MEDS: Nicotine 7 MG PATCH TD SCH (15:47)
[2022-08-18] MEDS: Gabapentin 300 MG CAP PO SCH (20:44)
[2022-08-18] MEDS: Carvedilol 6.25 MG TAB PO SCH (20:45)
[2022-08-18] MEDS: Atorvastatin Calcium 40 MG TAB PO SCH (20:45)
[2022-08-18] MEDS: Primidone 50 MG TAB PO SCH (20:54)
[2022-08-19 05:34] LABS: #Eosinphils 0.2 thou/uL (0.0-0.7); #Lymphocytes 1.6 thou/uL (1.20-3.40); #Monocytes 0.5 thou/uL (0.11-0.59); #Neutrophils 3.2 thou/uL (1.40-6.50); %Basophils 0.6 % (0.0-1.0); %Eosinophils 3.8 % (0.0-10.0); %Lymphocytes 29.1 % (21.0-51.0); %Monocytes 9.5 % (0.0-10.0); Hemoglobin 11.8 g/dL (14.0-18.0); Mean Corpuscular HGB CONC 36.1 g/dL (32.0-36.0); Mean Corpuscular Hemoglobin 32.8 pg (27.0-31.0); Mean Corpuscular Volume 90.8 fl (78.0-98.0); Mean Platelet Volume 9.3 fL (7.4-10.4); Platelet Count 158 10x3/uL (130-400); RBC Distribution Width 11.1 % (11.5-14.5); Red Blood Cell (RBC) Count 3.59 mill/uL (4.70-6.10); White Blood Cell (WBC) Count 5.6 10x3/uL (4.8-10.8)
[2022-08-19 05:36] LABS: Anion Gap 13 mmol/L (10-20); BUN (Urea Nitrogen) 17 mg/dL (8.4-25.7); Calc. Creatinine Clearance 100 mL/min (70-130); Calcium 8.3 mg/dL (7.8-10.44); Carbon Dioxide 26 mmol/L (23-31); Chloride 102 mmol/L (98-107); Estimated GFR 85; Glucose 107 mg/dL (80-115); Potassium 4.2 mmol/L (3.5-5.1); Sodium 137 mmol/L (136-145)
[2022-08-19] MEDS: Aspirin 81 mg Enteric Coated Tablet PO SCH (10:00)
[2022-08-19] MEDS: Gabapentin 300 MG CAP PO SCH ×2 (10:01→20:10)
[2022-08-19] MEDS: Carvedilol 6.25 MG TAB PO SCH ×2 (10:01→20:10)
[2022-08-19] MEDS: Primidone 50 MG TAB PO SCH ×2 (10:12→20:11)
[2022-08-19] MEDS ORDERED: Polyethylene Glycol 3350 17 GM Packet PO PRN (12:45)
[2022-08-19] MEDS ORDERED: Docusate 100 MG CAP PO PRN (12:45)
[2022-08-19] MEDS: Nicotine 7 MG PATCH TD SCH ×2 (15:26→15:29)
[2022-08-19] MEDS: Atorvastatin Calcium 40 MG TAB PO SCH (20:11)
[2022-08-20 05:30] LABS: #Eosinphils 0.2 thou/uL (0.0-0.7); #Lymphocytes 1.4 thou/uL (1.20-3.40); #Monocytes 0.4 thou/uL (0.11-0.59); #Neutrophils 3.1 thou/uL (1.40-6.50); %Basophils 0.8 % (0.0-1.0); %Eosinophils 3.8 % (0.0-10.0); %Lymphocytes 27.8 % (21.0-51.0); %Monocytes 8.2 % (0.0-10.0); %Neutrophils 59.4 % (42.0-75.0); Hemoglobin 11.7 g/dL (14.0-18.0); Mean Corpuscular Hemoglobin 31.9 pg (27.0-31.0); Mean Corpuscular Volume 91.1 fl (78.0-98.0); Mean Platelet Volume 9.5 fL (7.4-10.4); Platelet Count 170 10x3/uL (130-400); RBC Distribution Width 11.2 % (11.5-14.5); Red Blood Cell (RBC) Count 3.66 mill/uL (4.70-6.10); White Blood Cell (WBC) Count 5.2 10x3/uL (4.8-10.8)
[2022-08-20 05:35] LABS: Anion Gap 11 mmol/L (10-20); BUN (Urea Nitrogen) 17 mg/dL (8.4-25.7); Calc. Creatinine Clearance 91 mL/min (70-130); Calcium 8.2 mg/dL (7.8-10.44); Carbon Dioxide 28 mmol/L (23-31); Chloride 102 mmol/L (98-107); Estimated GFR 75; Glucose 125 mg/dL (80-115); Potassium 4.5 mmol/L (3.5-5.1); Sodium 136 mmol/L (136-145)
[2022-08-20] MEDS: Aspirin 81 mg Enteric Coated Tablet PO SCH (09:39)
[2022-08-20] MEDS: Carvedilol 6.25 MG TAB PO SCH ×2 (09:39→20:32)
[2022-08-20] MEDS: Gabapentin 300 MG CAP PO SCH ×2 (09:40→20:31)
[2022-08-20] MEDS: Primidone 50 MG TAB PO SCH ×2 (09:40→20:32)
[2022-08-20] MEDS: Nicotine 7 MG PATCH TD SCH (17:56)
[2022-08-20] MEDS: Atorvastatin Calcium 40 MG TAB PO SCH (20:31)
[2022-08-21 03:26] LABS: #Eosinphils 0.2 thou/uL (0.0-0.7); #Lymphocytes 1.7 thou/uL (1.20-3.40); #Monocytes 0.6 thou/uL (0.11-0.59); %Basophils 0.4 % (0.0-1.0); %Eosinophils 2.6 % (0.0-10.0); %Lymphocytes 25.5 % (21.0-51.0); %Neutrophils 62.5 % (42.0-75.0); Hemoglobin 11.7 g/dL (14.0-18.0); Mean Corpuscular HGB CONC 35.5 g/dL (32.0-36.0); Mean Corpuscular Hemoglobin 32.1 pg (27.0-31.0); Mean Corpuscular Volume 90.5 fl (78.0-98.0); Mean Platelet Volume 9.3 fL (7.4-10.4); Platelet Count 161 10x3/uL (130-400); RBC Distribution Width 11.1 % (11.5-14.5); Red Blood Cell (RBC) Count 3.63 mill/uL (4.70-6.10); White Blood Cell (WBC) Count 6.5 10x3/uL (4.8-10.8)
[2022-08-21 03:47] LABS: Anion Gap 12 mmol/L (10-20); BUN (Urea Nitrogen) 17 mg/dL (8.4-25.7); Calc. Creatinine Clearance 86 mL/min (70-130); Calcium 8.4 mg/dL (7.8-10.44); Carbon Dioxide 26 mmol/L (23-31); Chloride 104 mmol/L (98-107); Estimated GFR 70; Glucose 131 mg/dL (80-115); Potassium 4.3 mmol/L (3.5-5.1); Sodium 138 mmol/L (136-145)
[2022-08-21] MEDS: Aspirin 81 mg Enteric Coated Tablet PO SCH (08:27)
[2022-08-21] MEDS: Carvedilol 6.25 MG TAB PO SCH (08:27)
[2022-08-21] MEDS: Gabapentin 300 MG CAP PO SCH (08:30)
[2022-08-21] MEDS: Primidone 50 MG TAB PO SCH (08:31)
[2022-08-21 13:19] VITALS: BP 134/77; TEMP 97.9
== END 2022-08-21 15:32 | disposition home or self-care (01) | DRG 64 ==
LOC: ERS 13:10 → 2SW 15:24 → OBSVTOIN 08-18 14:19 → 2SW 08-18 16:41
PROVIDERS: ADMIT Internal Medicine; ATTEND Internal Medicine
DX: I63.9 Cerebral infarction, unspecified (principal); G93.41 Metabolic encephalopathy; I50.22 Chronic systolic (congestive) heart failure; I42.9 Cardiomyopathy, unspecified; I47.20 Ventricular tachycardia, unspecified; G45.9 Transient cerebral ischemic attack, unspecified; Z20.822 Contact with and (suspected) exposure to COVID-19; Z66 Do not resuscitate; I11.0 Hypertensive heart disease with heart failure; E78.5 Hyperlipidemia, unspecified; R47.1 Dysarthria and anarthria; R29.810 Facial weakness; R29.703 NIHSS score 3; F17.210 Nicotine dependence, cigarettes, uncomplicated; E11.40 Type 2 diabetes mellitus with diabetic neuropathy, unspecified; Z79.84 Long term (current) use of oral hypoglycemic drugs; Z79.899 Other long term (current) drug therapy; Z95.810 Presence of automatic (implantable) cardiac defibrillator
CPT/HCPCS: 36415; 36416; 51701; 70450; 70496; 70498; 80048; 80053; 80061; 81003; 81015; 83036; 83735; 84443; 84484; 85025; 85610; 85730; 93005; 93306; G0378; J1815; Q9967; U0003; U0005

== ENCOUNTER 2022-08-29 12:00 | Observation (INO) | payer MEDICARE, OTHER ==
[2022-08-29 13:47] LABS: #Eosinphils 0.1 thou/uL (0.0-0.7); #Lymphocytes 1.3 thou/uL (1.20-3.40); #Monocytes 0.5 thou/uL (0.11-0.59); #Neutrophils 5.4 thou/uL (1.40-6.50); %Basophils 0.1 % (0.0-1.0); %Eosinophils 1.3 % (0.0-10.0); %Lymphocytes 17.9 % (21.0-51.0); %Monocytes 6.4 % (0.0-10.0); %Neutrophils 74.3 % (42.0-75.0); Hemoglobin 11.4 g/dL (14.0-18.0); Mean Corpuscular Hemoglobin 31.2 pg (27.0-31.0); Mean Corpuscular Volume 89.2 fl (78.0-98.0); Mean Platelet Volume 9.2 fL (7.4-10.4); Platelet Count 239 10x3/uL (130-400); Red Blood Cell (RBC) Count 3.66 mill/uL (4.70-6.10); White Blood Cell (WBC) Count 7.3 10x3/uL (4.8-10.8)
[2022-08-29 14:10] LABS: ALT (SGPT) 7 U/L (8-55); AST (SGOT) 17 U/L (5-34); Albumin 3.6 g/dL (3.4-4.8); Alkaline Phosphatase 129 U/L (40-110); Anion Gap 15 mmol/L (10-20); BUN (Urea Nitrogen) 28 mg/dL (8.4-25.7); Bilirubin, Total 0.2 mg/dL (0.2-1.2); Calc. Creatinine Clearance 0 mL/min (70-130); Calcium 8.6 mg/dL (7.8-10.44); Carbon Dioxide 24 mmol/L (23-31); Chloride 101 mmol/L (98-107); Estimated GFR 31; Globulin 2.9 g/dL (2.4-3.5); Glucose 142 mg/dL (80-115); Potassium 4.4 mmol/L (3.5-5.1); Protein, Total 6.5 g/dL (5.8-8.1); Sodium 136 mmol/L (136-145)
[2022-08-29] MEDS ORDERED: Dextrose 50% Abboject 50 ML SYRINGE SLOW IVP PRN (18:19)
[2022-08-29] MEDS ORDERED: Dextrose 5% in Water 1,000 ML IV PRN (18:19)
[2022-08-29] MEDS ORDERED: Atorvastatin Calcium 40 MG TAB PO SCH (21:00)
[2022-08-29] MEDS: Gabapentin 300 MG CAP PO SCH (22:12)
[2022-08-29] MEDS: Heparin 5,000 UNITS/ML VIAL SC SCH (22:13)
[2022-08-29] MEDS: Sodium Chloride 0.9% 1,000 ML IV SCH (22:13)
[2022-08-29 22:20] VITALS: BMI 28.2
[2022-08-29] MEDS: Midodrine HCl 5 MG TAB PO SCH (23:20)
[2022-08-30 05:18] LABS: #Eosinphils 0.1 thou/uL (0.0-0.7); #Lymphocytes 1.8 thou/uL (1.20-3.40); #Monocytes 0.4 thou/uL (0.11-0.59); %Basophils 0.6 % (0.0-1.0); %Eosinophils 1.6 % (0.0-10.0); %Lymphocytes 34.2 % (21.0-51.0); %Monocytes 6.8 % (0.0-10.0); %Neutrophils 56.8 % (42.0-75.0); Mean Corpuscular HGB CONC 35.1 g/dL (32.0-36.0); Mean Corpuscular Hemoglobin 31.3 pg (27.0-31.0); Mean Corpuscular Volume 89.1 fl (78.0-98.0); Platelet Count 247 10x3/uL (130-400); RBC Distribution Width 11.1 % (11.5-14.5); White Blood Cell (WBC) Count 5.3 10x3/uL (4.8-10.8)
[2022-08-30 05:40] LABS: Anion Gap 13 mmol/L (10-20); BUN (Urea Nitrogen) 22 mg/dL (8.4-25.7); Calc. Creatinine Clearance 62 mL/min (70-130); Calcium 8.4 mg/dL (7.8-10.44); Carbon Dioxide 24 mmol/L (23-31); Chloride 105 mmol/L (98-107); Estimated GFR 49; Glucose 120 mg/dL (80-115); Magnesium 1.7 mg/dL (1.6-2.6); Phosphorus 3.1 mg/dL (2.3-4.7); Sodium 138 mmol/L (136-145)
[2022-08-30] MEDS: Sodium Chloride 0.9% 1,000 ML IV SCH ×2 (08:35→20:21)
[2022-08-30] MEDS: Midodrine HCl 5 MG TAB PO SCH ×3 (08:36→20:23)
[2022-08-30] MEDS: Heparin 5,000 UNITS/ML VIAL SC SCH ×3 (08:36→20:23)
[2022-08-30] MEDS: Gabapentin 300 MG CAP PO SCH ×2 (08:36→20:22)
[2022-08-30] MEDS: metFORMIN XR 500 MG TAB PO SCH ×2 (10:46→20:25)
[2022-08-30] MEDS: Escitalopram Oxalate 10 mg Tablet PO SCH (10:46)
[2022-08-30] MEDS: Carvedilol 3.125 MG TAB PO SCH ×2 (10:46→20:22)
[2022-08-30] MEDS: Aspirin 81 mg Enteric Coated Tablet PO SCH (10:46)
[2022-08-30] MEDS: Primidone 50 MG TAB PO SCH ×2 (11:15→20:22)
[2022-08-30] MEDS ORDERED: Primidone 50 MG TAB PO SCH (11:15)
[2022-08-30] MEDS: Primidone 250 MG TAB PO SCH ×2 (11:15→20:24)
[2022-08-30] MEDS ORDERED: Atorvastatin Calcium 10 MG TAB PO SCH (21:00)
[2022-08-31 04:18] VITALS: TEMP 98.2
[2022-08-31] MEDS: Sodium Chloride 0.9% 1,000 ML IV SCH (05:34)
[2022-08-31 05:38] LABS: #Eosinphils 0.1 thou/uL (0.0-0.7); #Lymphocytes 1.3 thou/uL (1.20-3.40); #Monocytes 0.4 thou/uL (0.11-0.59); #Neutrophils 2.7 thou/uL (1.40-6.50); %Basophils 0.2 % (0.0-1.0); %Eosinophils 2.1 % (0.0-10.0); %Neutrophils 60.6 % (42.0-75.0); Hemoglobin 10.2 g/dL (14.0-18.0); Mean Corpuscular HGB CONC 34.7 g/dL (32.0-36.0); Mean Corpuscular Hemoglobin 31.1 pg (27.0-31.0); Mean Corpuscular Volume 89.7 fl (78.0-98.0); Mean Platelet Volume 9.4 fL (7.4-10.4); Platelet Count 231 10x3/uL (130-400); RBC Distribution Width 10.9 % (11.5-14.5); Red Blood Cell (RBC) Count 3.28 mill/uL (4.70-6.10); White Blood Cell (WBC) Count 4.5 10x3/uL (4.8-10.8)
[2022-08-31 05:55] LABS: Anion Gap 11 mmol/L (10-20); BUN (Urea Nitrogen) 16 mg/dL (8.4-25.7); Calc. Creatinine Clearance 95 mL/min (70-130); Calcium 7.9 mg/dL (7.8-10.44); Carbon Dioxide 25 mmol/L (23-31); Chloride 110 mmol/L (98-107); Estimated GFR 82; Glucose 135 mg/dL (80-115); Potassium 3.9 mmol/L (3.5-5.1); Sodium 142 mmol/L (136-145)
[2022-08-31] MEDS: Heparin 5,000 UNITS/ML VIAL SC SCH (08:55)
[2022-08-31] MEDS: Primidone 250 MG TAB PO SCH (08:56)
[2022-08-31] MEDS: Primidone 50 MG TAB PO SCH (08:56)
[2022-08-31] MEDS: Aspirin 81 mg Enteric Coated Tablet PO SCH (08:57)
[2022-08-31] MEDS: Escitalopram Oxalate 10 mg Tablet PO SCH (08:57)
[2022-08-31] MEDS: metFORMIN XR 500 MG TAB PO SCH (08:57)
[2022-08-31] MEDS: Gabapentin 300 MG CAP PO SCH (08:57)
[2022-08-31] MEDS: Carvedilol 3.125 MG TAB PO SCH (08:57)
[2022-08-31] MEDS: Midodrine HCl 5 MG TAB PO SCH (09:50)
[2022-08-31 10:01] VITALS: BP 139/71
== END 2022-08-31 12:30 | disposition home or self-care (01) ==
LOC: SUATTDRO 12:00 → ERS 12:00 → NEURO 15:22
PROVIDERS: ADMIT Internal Medicine; ATTEND Internal Medicine
DX: I95.9 Hypotension, unspecified (principal); R42 Dizziness and giddiness; N17.9 Acute kidney failure, unspecified; E11.43 Type 2 diabetes mellitus with diabetic autonomic (poly)neuropathy; E78.5 Hyperlipidemia, unspecified; I10 Essential (primary) hypertension; I42.9 Cardiomyopathy, unspecified; F17.220 Nicotine dependence, chewing tobacco, uncomplicated; Z66 Do not resuscitate; Z86.73 Personal history of transient ischemic attack (TIA), and cerebral infarction without residual deficits; Z79.82 Long term (current) use of aspirin; Z79.84 Long term (current) use of oral hypoglycemic drugs; Z79.899 Other long term (current) drug therapy; Z91.018 Allergy to other foods; Z95.810 Presence of automatic (implantable) cardiac defibrillator; Z20.822 Contact with and (suspected) exposure to COVID-19
CPT/HCPCS: 71045; 80048 ×2; 80053; 82962 ×3; 83735; 83880; 84100; 84484; 85025 ×3; 93005; 96360; 97116; 99285; U0003; U0005; 36415; 36416; 96361; 96372; G0378; J1644; J7050

== ENCOUNTER 2022-09-20 17:28 | Inpatient (IN) | payer MEDICARE, OTHER ==
[2022-09-20 18:22] LABS: #Eosinphils 0.3 thou/uL (0.0-0.7); #Lymphocytes 0.8 thou/uL (1.20-3.40); #Monocytes 0.6 thou/uL (0.11-0.59); #Neutrophils 5.9 thou/uL (1.40-6.50); %Basophils 0.1 % (0.0-1.0); %Eosinophils 3.5 % (0.0-10.0); %Monocytes 7.8 % (0.0-10.0); %Neutrophils 77.7 % (42.0-75.0); Hemoglobin 10.9 g/dL (14.0-18.0); Mean Corpuscular HGB CONC 36.3 g/dL (32.0-36.0); Mean Corpuscular Hemoglobin 32.9 pg (27.0-31.0); Mean Corpuscular Volume 90.5 fl (78.0-98.0); Mean Platelet Volume 9.9 fL (7.4-10.4); Platelet Count 142 10x3/uL (130-400); White Blood Cell (WBC) Count 7.6 10x3/uL (4.8-10.8)
[2022-09-20 18:43] LABS: ALT (SGPT) 20 U/L (8-55); AST (SGOT) 35 U/L (5-34); Acetaminophen Less than 10.0 mcg/mL (10.0-30.0); Albumin 3.6 g/dL (3.4-4.8); Alcohol Less than 10 mg/dL (Less than 10); Alkaline Phosphatase 140 U/L (40-110); Anion Gap 12 mmol/L (10-20); BUN (Urea Nitrogen) 32 mg/dL (8.4-25.7); Bilirubin, Total 0.5 mg/dL (0.2-1.2); Calc. Creatinine Clearance 0 mL/min (70-130); Calcium 8.6 mg/dL (7.8-10.44); Carbon Dioxide 28 mmol/L (23-31); Chloride 102 mmol/L (98-107); Estimated GFR 45; Globulin 2.8 g/dL (2.4-3.5); Glucose 201 mg/dL (80-115); Potassium 4.5 mmol/L (3.5-5.1); Protein, Total 6.4 g/dL (5.8-8.1); Salicylate Less than 8.0 mg/dL (15.0-30.0); Sodium 137 mmol/L (136-145)
[2022-09-20 18:45] LABS: Actual Bicarbonate (HCO3v) 27 mEq/L (22-28); Analyzer IN Cardio ER; Base Excess 1.6 mEq/L (-2.0 to +3.0); Calcium, Ionized (venous) 1.09 mmol/L (1.16-1.32); Chloride (VBG) 100 mmol/L (98-106); Hemoglobin (Hb) 11.7 g/dL (12.6-17.4); Potassium (VBG) 4.49 mmol/L (3.70-5.30); Sodium 136.2 mmol/L (133-146)
[2022-09-20 19:05] LABS: CKMB 1.5 ng/mL (0-6.6)
[2022-09-20 22:16] VITALS: BMI 28.5
[2022-09-20] MEDS ORDERED: Ondansetron ODT 4 MG TAB PO PRN (22:41)
[2022-09-20] MEDS ORDERED: Acetaminophen 325 MG TAB PO PRN (22:41)
[2022-09-20 22:45] LABS: Troponin I 0.042 ng/mL (< 0.028)
[2022-09-20] MEDS ORDERED: Lactated Ringer's 1,000 ML IV SCH (22:45)
[2022-09-21 01:50] LABS: Troponin I 0.041 ng/mL (< 0.028)
[2022-09-21 07:05] LABS: Anion Gap 16 mmol/L (10-20); BUN (Urea Nitrogen) 28 mg/dL (8.4-25.7); Calc. Creatinine Clearance 69 mL/min (70-130); Calcium 8.4 mg/dL (7.8-10.44); Carbon Dioxide 23 mmol/L (23-31); Chloride 101 mmol/L (98-107); Estimated GFR 55; Glucose 164 mg/dL (80-115); Potassium 4.4 mmol/L (3.5-5.1); Sodium 136 mmol/L (136-145)
[2022-09-21] MEDS ORDERED: metFORMIN 500 MG TAB PO SCH (09:00)
[2022-09-21] MEDS ORDERED: Aspirin Chewable 81 MG TAB ONE (09:12)
[2022-09-21] MEDS ORDERED: Famotidine 20 MG TAB ONE (09:14)
[2022-09-21] MEDS: Aspirin 81 mg Enteric Coated Tablet PO SCH (09:27)
[2022-09-21] MEDS: Aspirin Chewable 81 MG TAB PO SCH (09:27)
[2022-09-21] MEDS: Heparin 5,000 UNITS/ML VIAL SC SCH ×3 (09:28→20:55)
[2022-09-21] MEDS: Famotidine 20 MG TAB PO SCH ×2 (09:28→20:52)
[2022-09-21] MEDS: Escitalopram Oxalate 10 mg Tablet PO SCH (09:28)
[2022-09-21] MEDS: Carvedilol 6.25 MG TAB PO SCH ×2 (09:28→20:54)
[2022-09-21] MEDS: Midodrine HCl 5 MG TAB PO SCH ×3 (17:38→20:53)
[2022-09-21] MEDS: Atorvastatin Calcium 10 MG TAB PO SCH (20:52)
[2022-09-22 08:52] LABS: #Eosinphils 0.4 thou/uL (0.0-0.7); #Lymphocytes 1.3 thou/uL (1.20-3.40); #Monocytes 0.6 thou/uL (0.11-0.59); #Neutrophils 5.6 thou/uL (1.40-6.50); %Basophils 0.4 % (0.0-1.0); %Eosinophils 4.9 % (0.0-10.0); %Lymphocytes 15.9 % (21.0-51.0); %Monocytes 7.9 % (0.0-10.0); Hemoglobin 10.5 g/dL (14.0-18.0); Mean Corpuscular HGB CONC 33.9 g/dL (32.0-36.0); Mean Corpuscular Hemoglobin 31.2 pg (27.0-31.0); Mean Corpuscular Volume 91.9 fl (78.0-98.0); Platelet Count 174 10x3/uL (130-400); RBC Distribution Width 11.9 % (11.5-14.5); Red Blood Cell (RBC) Count 3.36 mill/uL (4.70-6.10); White Blood Cell (WBC) Count 7.9 10x3/uL (4.8-10.8)
[2022-09-22 09:12] LABS: Anion Gap 16 mmol/L (10-20); BUN (Urea Nitrogen) 22 mg/dL (8.4-25.7); Calc. Creatinine Clearance 82 mL/min (70-130); Calcium 8.9 mg/dL (7.8-10.44); Carbon Dioxide 24 mmol/L (23-31); Chloride 102 mmol/L (98-107); Estimated GFR 68; Glucose 164 mg/dL (80-115); Potassium 4.7 mmol/L (3.5-5.1); Sodium 137 mmol/L (136-145)
[2022-09-22] MEDS: Famotidine 20 MG TAB PO SCH ×2 (10:10→21:37)
[2022-09-22] MEDS: Aspirin 81 mg Enteric Coated Tablet PO SCH (10:10)
[2022-09-22] MEDS: Carvedilol 6.25 MG TAB PO SCH (10:11)
[2022-09-22] MEDS: Midodrine HCl 5 MG TAB PO SCH ×3 (10:11→21:38)
[2022-09-22] MEDS: Heparin 5,000 UNITS/ML VIAL SC SCH ×4 (10:12→21:37)
[2022-09-22] MEDS: Escitalopram Oxalate 10 mg Tablet PO SCH (10:12)
[2022-09-22] MEDS: Primidone 50 MG TAB PO SCH ×2 (10:17→21:40)
[2022-09-22] MEDS: Primidone 250 MG TAB PO SCH ×2 (10:51→21:37)
[2022-09-22] MEDS: Aspirin Chewable 81 MG TAB PO SCH (10:52)
[2022-09-22] MEDS ORDERED: Propranolol 10 MG TAB PO SCH (11:45)
[2022-09-22] MEDS ORDERED: Carvedilol 3.125 MG TAB PO SCH (21:00)
[2022-09-22] MEDS: Atorvastatin Calcium 10 MG TAB PO SCH (21:37)
[2022-09-22] MEDS: Propranolol 10 MG TAB PO SCH (21:37)
[2022-09-23 05:08] LABS: #Eosinphils 0.3 thou/uL (0.0-0.7); #Lymphocytes 1.1 thou/uL (1.20-3.40); #Monocytes 0.4 thou/uL (0.11-0.59); #Neutrophils 2.7 thou/uL (1.40-6.50); %Basophils 0.1 % (0.0-1.0); %Eosinophils 7.2 % (0.0-10.0); %Lymphocytes 23.9 % (21.0-51.0); %Monocytes 9.7 % (0.0-10.0); %Neutrophils 59.1 % (42.0-75.0); Hemoglobin 9.6 g/dL (14.0-18.0); Mean Corpuscular HGB CONC 34.7 g/dL (32.0-36.0); Mean Corpuscular Hemoglobin 32.1 pg (27.0-31.0); Mean Corpuscular Volume 92.5 fl (78.0-98.0); Mean Platelet Volume 10.4 fL (7.4-10.4); Platelet Count 154 10x3/uL (130-400); RBC Distribution Width 11.9 % (11.5-14.5); Red Blood Cell (RBC) Count 3.01 mill/uL (4.70-6.10); White Blood Cell (WBC) Count 4.6 10x3/uL (4.8-10.8)
[2022-09-23 05:34] LABS: Anion Gap 12 mmol/L (10-20); BUN (Urea Nitrogen) 17 mg/dL (8.4-25.7); Calc. Creatinine Clearance 102 mL/min (70-130); Calcium 8.7 mg/dL (7.8-10.44); Carbon Dioxide 28 mmol/L (23-31); Chloride 103 mmol/L (98-107); Estimated GFR 88; Glucose 158 mg/dL (80-115); Potassium 4.4 mmol/L (3.5-5.1); Sodium 139 mmol/L (136-145)
[2022-09-23] MEDS ORDERED: FLU VACC QS2022-23(65YR UP)/PF 240 MCG/0.7 ML SYRINGE IM ONE (09:00)
[2022-09-23] MEDS: Famotidine 20 MG TAB PO SCH (10:20)
[2022-09-23] MEDS: Propranolol 10 MG TAB PO SCH (10:20)
[2022-09-23] MEDS: Aspirin 81 mg Enteric Coated Tablet PO SCH (10:20)
[2022-09-23] MEDS: Midodrine HCl 5 MG TAB PO SCH ×2 (10:21→14:20)
[2022-09-23] MEDS: Escitalopram Oxalate 10 mg Tablet PO SCH (10:21)
[2022-09-23] MEDS: Primidone 250 MG TAB PO SCH (10:22)
[2022-09-23] MEDS: Heparin 5,000 UNITS/ML VIAL SC SCH ×2 (10:22→14:20)
[2022-09-23] MEDS: Primidone 50 MG TAB PO SCH (10:22)
[2022-09-23 14:32] VITALS: BP 139/85; TEMP 98.1
== END 2022-09-23 14:34 | disposition home or self-care (01) | DRG 92 ==
LOC: ERS 17:28 → ERHOLD 20:28 → 2NO 09-21 16:20 → OBSVTOIN 09-22 15:25
PROVIDERS: ADMIT Hospitalist; ATTEND Hospitalist
DX: G25.0 Essential tremor (principal); I50.22 Chronic systolic (congestive) heart failure; N17.9 Acute kidney failure, unspecified; R42 Dizziness and giddiness; E11.40 Type 2 diabetes mellitus with diabetic neuropathy, unspecified; Z66 Do not resuscitate; Z20.822 Contact with and (suspected) exposure to COVID-19; R29.6 Repeated falls; E11.65 Type 2 diabetes mellitus with hyperglycemia; R77.8 Other specified abnormalities of plasma proteins; Z91.81 History of falling; Z95.0 Presence of cardiac pacemaker; Z88.0 Allergy status to penicillin; Z91.018 Allergy to other foods; Z79.899 Other long term (current) drug therapy; Z79.84 Long term (current) use of oral hypoglycemic drugs; Z79.82 Long term (current) use of aspirin; Z86.73 Personal history of transient ischemic attack (TIA), and cerebral infarction without residual deficits; Z98.890 Other specified postprocedural states
CPT/HCPCS: 36415; 70450; 71045; 80048; 80053; 80307; 82553; 82805; 83036; 83605; 83880; 84484; 85025; 93005; 94760; 95712; 95819; 95957; G0378; J1644; J7120; U0003; U0005